=== PATIENT | male | born 1970 | race Caucasian/White ===

== ENCOUNTER 2017-04-06 08:49 | Inpatient (IN) | payer OTHER ==
[2017-04-06 09:34] VITALS: BMI 34.2
[2017-04-06] MEDS ORDERED: MAGNESIUM CITRATE 300 ML BOTTLE PO PRN (10:37)
[2017-04-06] MEDS ORDERED: MAG HYDROX/AL HYDROX/SIMETH 30 ML UNIT-DOSE CUP PO PRN (10:37)
[2017-04-06] MEDS ORDERED: ACETAMINOPHEN 325 MG TABLET (FP) PO PRN (10:37)
[2017-04-06] MEDS ORDERED: IBUPROFEN 400 MG TABLET (FP) PO PRN (10:37)
[2017-04-06] MEDS ORDERED: guaiFENesin/D-METHORPHAN HB 10 ML UNIT-DOSE CUPS PO PRN (10:37)
[2017-04-06] MEDS ORDERED: P-EPHED 60MG/TRIPROLIDI 2.5MG TABLET PO PRN (10:37)
[2017-04-06] MEDS ORDERED: chlordiazePOXIDE HCL 25 MG CAPSULE PO PRN (10:37)
[2017-04-06] MEDS ORDERED: NICOTINE POLACRILEX 2 MG GUM BUC PRN (10:37)
[2017-04-06] MEDS ORDERED: MENTHOL/PHENOL 1 EACH UD MM PRN (10:37)
[2017-04-06] MEDS ORDERED: MAGNESIUM HYDROX 2400MG/30ML ORAL SUSPENSION 30 ML CUP PO PRN (10:37)
[2017-04-06] MEDS ORDERED: LOPERAMIDE HCL 2 MG CAPSULE PO PRN (10:37)
--- NOTE | 2017-04-06 10:37 | HP ---
COWS - Scale Resting Pulse: 0= [place] 80 or Below Sweatin= Chills/Flushing Restless Observation: 1= Difficult to Sit Still Pupil Size: 1= Pupils >than Normal Bone or Joint Aches: 1= Mild Discomfort Runny Nose/ Eye Tearin= Nasal Congestion GI Upset > 30mins: 2= Nausea/Diarrhea Tremor Observation: 1= Tremor [place], Not Seen Yawning Observation: 1= 1-2x During Session Anxiety or Irritability: 2=Irritable/Anxious Goose Flesh Skin: 3=Piloe[place] COWS Score: 14 CIWA Score - CIWA Score Nausea/Vomitin Muscle Tremors: 3 Anxiety: 3 Agitation: 3 Paroxysmal Sweats: 3 Orientation: 0-Oriented Tacttile Disturbances: 0-None Auditory Disturbances: 0-None Visual Disturbances: 0-None Headache: 3-Moderate CIWA-Ar Total Score: 18 Admission ROS BHS - HPI Chief Complaint: alcohol and heroin withdrawal sx Allergies/Adverse Reactions: Allergies Allergy/AdvReac Type Severity Reaction Status Date / Time No Known Allergies Allergy Verified 04/06/17 10:02 History of Present Illness: 47 yo m with h/o oud and chronic alcoholism, multiple admissions to [facility] for detox, requesting inpatient detoxification from alcohol and heorin because of withdrawal sx. no h/o withdrawal seizurs, h/o blackouts, no OD no DTs. no SI at this time pmhx dm, sleep apnoea,glaucoma r, copd, nicotien dependen, cocaine dependence 1/2 PPD Exam Limitations: No Limitations - Ebola screening Have you traveled outside of the country in the last 21 days: No (N) Have you had contact with anyone from an Ebola affected area: No Have you been sick,other than usual withdrawal symptoms: No Do you have a fever: No - Review of Systems Constitutional: Chills, Diaphoresis, Night Sweats, Changes in sleep, Unintentional Wgt. Loss EENT: reports: Tearing, Nose Congestion Respiratory: reports: Cough (smokers worse at night), SOB with Exertion (copd symptoms), Wheezing Cardiac: reports: No Symptoms Reported GI: reports: Nausea, Poor Appetite, Poor Fluid Intake, Abdominal cramping : reports: No Symptoms Reported Musculoskeletal: reports: Back Pain (withdrawal sx), Muscle Pain Integumentary: reports: Flushing, Sweating Neuro: reports: Headache, Tremors Endocrine: reports: Increased Thirst Hematology: reports: No Symptoms Reported Psychiatric: reports: Judgement Intact, Mood/Affect Appropiate, Orientated x3, Anxious, Depressed Other Systems: Reviewed and Negative Patient History - Patient Medical History Hx Anemia: No Hx Asthma: No Hx Chronic Obstructive Pulmonary Disease (COPD): Yes Hx Cancer: No Hx Cardiac Disorders: No Hx Congestive Heart Failure: No Hx Hypertension: No Hx Hypercholesterolemia: No Hx Pacemaker: No HX Cerebrovascular Accident: No Hx Seizures: No Hx Dementia: No Hx Diabetes: Yes Hx Gastrointestinal Disorders: No Hx Liver Disease: No Hx Genitourinary Disorders: No Hx Sexually Transmitted Disorders: No Hx Renal Disease (ESRD): No Hx Thyroid Disease: No Hx Human Immunodeficiency Virus (HIV): No Hx Hepatitis C: No Hx Depression: Yes Hx Suicide Attempt: Yes (Tried to jump in front of a train.) Hx Bipolar Disorder: Yes Hx Schizophrenia: No - Patient Surgical History Past Surgical History: Yes Hx Neurologic Surgery: No Hx Cataract Extraction: No Hx Cardiac Surgery: No Hx Lung Surgery: No Hx Breast Surgery: No Hx Breast Biopsy: No Hx Abdominal Surgery: No Hx Appendectomy: No Hx Cholecystectomy: No Hx Genitourinary Surgery: No Hx Orthopedic Surgery: Yes (R hand sx 2007) Anesthesia Reaction: No - PPD History Previous Implant?: Yes Documented Results: Negative w/o proof Implanted On Prior R Admission?: No Date: 08/07/15 PPD to be Administered?: Yes - Reproductive History Patient is a Female of Child Bearing Age (11 -55 yrs old): No Patient : No - Smoking Cessation Smoking history: Current every day smoker Have you smoked in the past 12 months: Yes Aproximately how many cigarettes per day: 10 Hx Chewing Tobacco Use: No Initiated information on smoking cessation: Yes 'Breaking Loose' booklet given: 04/06/17 - Substance & Tx. History Hx Alcohol Use: Yes Hx Substance Use: Yes Substance Use Type: Alcohol, Cocaine, Heroin, Opiates Hx Substance Use Treatment: Yes ([facility] detox in past) - Substances Abused Heroin Route: Inhalation Frequency: Daily Amount used: 6-7 bags Age of first use: 41 Date of Last Use: 04/05/17 Alcohol Route: Oral Frequency: Daily Amount used: 5 12 oz cans beer Age of first use: 11 Date of Last Use: 04/06/17 Crack Route: Smoking Frequency: Daily Amount used: $30 and up Age of first use: 11 Date of Last Use: 04/05/17 Family Disease History - Family Disease History Family Disease History: Diabetes: Father (ON HD FOR CKD), Mother, Other: Brother (ADDICTED TO DRUGS AND ETOH) Admission Physical Exam BHS - Vital Signs Vital Signs: Vital Signs - 24 hr 04/06/17 09:28 Temperature 96.6 F L Pulse Rate 68 Respiratory 20 Rate Blood Pressure 147/88 - Physical General Appearance: Yes: Nourished, Appropriately Dressed, Disheveled, Mild Distress, Tremorous, Irritable, Sweating, Anxious HEENTM: Yes: EOMI, Hearing grossly Normal, Normocephalic, Normal Voice, YANG, Pharynx Normal, Nasal Congestion, Rhinorrhea Respiratory: Yes: Within Normal Limits, Chest Non-Tender, Lungs Clear, Normal Breath Sounds, No Respiratory Distress, No Accessory Muscle Use Neck: Yes: Within Normal Limits, No masses,lesions,Nodules, Supple, Trachea in good position Breast: Yes: Breast Exam Deferred Cardiology: Yes: Within Normal Limits, Regular Rhythm, Regular Rate, S1, S2 Abdominal: Yes: Within Normal Limits, Normal Bowel Sounds, Non Tender, Increased Bowel Sounds, Protuberent Genitourinary: Yes: Within Normal Limits Back: Yes: Within Normal Limits, Normal Inspection Musculoskeletal: Yes: full range of Motion, Gait Steady, Pelvis Stable, Back pain, Muscle Pain Extremities: Yes: Normal Capillary Refill, Normal Inspection, Normal Range of Motion, Tremors 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 NML intact, Fully Oriented, Alert, Motor Strength 5/5, Normal Response, Depressed Affect Integumentary: Yes: Normal Color, Warm, Diaphoresis, Moist Lymphatic: Yes: Within Normal Limits - Addiitonal Findings: withdrawal sx - Diagnostic (1) Alcohol dependence with uncomplicated withdrawal Current Visit: No Status: Acute (2) Bipolar disorder Current Visit: No Status: Acute (3) Opioid dependence with withdrawal Current Visit: No Status: Acute (4) PTSD (post-traumatic stress disorder) Current Visit: No Status: Acute (5) Cocaine dependence Current Visit: No Status: Chronic Qualifiers: (6) Glaucoma associated with ocular disorder, indeterminate stage Current Visit: No Status: Chronic (7) Obesity Current Visit: No Status: Chronic (8) Type II diabetes mellitus Current Visit: No Status: Chronic Cleared for Admission BHS - Detox or Rehab Detox Regimen/Protocol: Methadone/Librium BHS Breath Alcohol Content Breath Alcohol Content: 0 Urine Drug Screen - Results Drug Screen Negative: No Urine Drug Screen Results: ABRAHAN-Cocaine, OPI-Opiates
[2017-04-06] MEDS ORDERED: chlordiazePOXIDE HCL 25 MG CAPSULE PO ONE (11:11)
[2017-04-06] MEDS ORDERED: METHADONE HCL 10 MG TABLET (FOR DETOX USE ONLY) PO ONE ×2 (11:12→23:00)
[2017-04-06] MEDS: PANTOPRAZOLE 40 MG TABLET (FP) PO SCH (12:59)
[2017-04-06] MEDS: CYCLOBENZAPRINE HCL 5 MG TABLET PO SCH ×2 (12:59→22:22)
[2017-04-06] MEDS: glipiZIDE 5 MG TABLET (FP) PO SCH ×2 (12:59→17:10)
[2017-04-06] MEDS: NICOTINE 14 MG/24 HOURS TOPICAL PATCH TD SCH (13:00)
--- NOTE | 2017-04-06 16:56 | CONSULT ---
[facility] Psychiatric Consult - Data Date of interview: 04/06/17 Admission source: [facility] Identifying data: Pt. is a 47 year old single male, without kids, unemployed, and homeless. This is one of multiple admissions to [facility]. Pt. admitted to for cocaine, heroin, and alcohol dependence. Substance Abuse History: Following information confirmed with Mr. Hutchison: - Smoking Cessation. Smoking history: Current every day smoker. Have you smoked in the past 12 months: Yes. Aproximately how many cigarettes per day: 10. Hx Chewing Tobacco Use: No. Initiated information on smoking cessation: Yes. ' Breaking Loose' booklet given: 04/06/17. - Substance & Tx. History. Hx Alcohol Use: Yes. Hx Substance Use: Yes. Substance Use Type: Alcohol, Cocaine , Heroin, Opiates. Hx Substance Use Treatment: Yes ([facility] detox in past). - Substances Abused. Heroin. Route: Inhalation. Frequency: Daily. Amount used: 6-7 bags. Age of first use: 41. Date of Last Use: 04/05/17. Alcohol. Route: Oral. Frequency: Daily. Amount used: 5 12 oz cans beer. Age of first use: 11. Date of Last Use: 04/06/17. Crack. Route: Smoking. Frequency: Daily. Amount used: $30 and up. Age of first use: 11. Date of Last Use: 04/05/17 Medical History: COPD, diabetes. Psychiatric History: Pt. reports several psychiatric hospitalizations with the most recent hospitalization occuring at [facility] in 2015 for suicidal ideation. Pt. reports a history of outpatient care at [facility] but none in the last 6 months. Pt. states he was prescribed celexa 40mg but has not taken the medications in approximately 4-6 months. Pt. requesting to restart celexa at [facility]. Pt. reports one suicide attempt three years ago by jumping in a front of a train and another suicide attempt at 20 by attempting to jump off the roof. Pt. currently denies suicidal and homicidal ideation. Physical/Sexual Abuse/Trauma History: Denies. Mental Status Exam - Mental Status Exam Alert and Oriented to: Time, Place, Person Cognitive Function: Good Patient Appearance: Well Groomed Mood: Hopeful Affect: Mood Congruent Patient Behavior: Cooperative Speech Pattern: Appropriate Voice Loudness: Normal Thought Process: Goal Oriented Thought Disorder: Not Present Hallucinations: Denies Suicidal Ideation: Denies Homicidal Ideation: Denies Insight/Judgement: Poor Sleep: Fair Appetite: Good Muscle strength/Tone: Normal Gait/Station: Other (Did not observe patient's gait.) Psychiatric Findings - Problem List ([place] 1, 2,3) (1) Alcohol dependence with uncomplicated withdrawal Current Visit: Yes Status: Acute (2) Opioid dependence with withdrawal Current Visit: Yes Status: Acute (3) Alcohol dependence Current Visit: Yes Status: Acute (4) Opioid dependence Current Visit: No Status: Acute (5) Bipolar disorder Current Visit: Yes Status: Chronic Comment: Self reports. - Initial Treatment Plan Initial Treatment Plan: Psychoeducation provided. Detoxification in progress. Celexa 10mg PO daily. Benefits and side effects discussed. Verbal consent given. Will continue to monitor.
[2017-04-06] MEDS: chlordiazePOXIDE HCL 25 MG CAPSULE PO SCH ×2 (17:10→22:22)
[2017-04-06 18:16] LABS: URINE APPEARANCE TURBID; URINE BILIRUBIN NEGATIVE (NEGATIVE); URINE BLOOD NEGATIVE (NEGATIVE); URINE COLOR AMBER; URINE GLUCOSE (UA) NEGATIVE (NEGATIVE); URINE KETONE TRACE (NEGATIVE); URINE LEUK ESTERASE NEGATIVE (NEGATIVE); URINE NITRITE NEGATIVE (NEGATIVE); URINE PROTEIN NEGATIVE (NEGATIVE)
[2017-04-06] MEDS: THIAMINE HCL 100 MG TABLET (FP) PO SCH (22:22)
[2017-04-06] MEDS: LATANOPROST 0.005% OPHTH SOLN 2.5ML BOTTLE OU SCH (22:42)
[2017-04-07] MEDS: CYCLOBENZAPRINE HCL 5 MG TABLET PO SCH ×3 (05:20→22:30)
[2017-04-07] MEDS: chlordiazePOXIDE HCL 25 MG CAPSULE PO SCH ×4 (05:21→22:30)
[2017-04-07] MEDS: glipiZIDE 5 MG TABLET (FP) PO SCH ×2 (07:54→17:28)
[2017-04-07] MEDS ORDERED: METHADONE HCL 10 MG TABLET (FOR DETOX USE ONLY) PO SCH (10:00)
[2017-04-07 10:01] LABS: HEMATOCRIT 40.6 % (35.4-49); HEMOGLOBIN 13.8 GM/dL (11.7-16.9); MCH 31.2 pg (25.7-33.7); MCHC 33.9 g/dl (32.0-35.9); MEAN CELL VOLUME 91.9 fl (80-96); MEAN PLT VOLUME 9.5 fl (7.5-11.1); PLATELET COUNT 303 K/MM3 (134-434); RBC 4.42 M/mm3 (4.00-5.60); RDW 13.6 % (11.9-15.9); WHITE BLOOD COUNT 5.8 K/mm3 (4.0-10.0)
[2017-04-07] MEDS: PANTOPRAZOLE 40 MG TABLET (FP) PO SCH (10:10)
[2017-04-07] MEDS: CITALOPRAM HYDROBROMIDE 20 MG TABLET (FP) PO SCH (10:10)
[2017-04-07] MEDS: PRENATAL VITAMINS W/ FOLIC ACID TABLET (FP) PO SCH (10:10)
[2017-04-07] MEDS: NICOTINE 14 MG/24 HOURS TOPICAL PATCH TD SCH (10:11)
[2017-04-07 10:12] LABS: ALBUMIN 3.6 g/dl (3.4-5.0); ANION GAP 9 (8-16); BLOOD UREA NITROGEN 11 mg/dL (7-18); CALCIUM 8.5 mg/dL (8.5-10.1); CHLORIDE 107 mmol/L (98-107); CO2 25 mmol/L (21-32); GLUCOSE,RANDOM 186 mg/dL (74-106); POTASSIUM 4.6 mmol/L (3.5-5.1); SODIUM 141 mmol/L (136-145)
[2017-04-07 10:17] LABS: ALK PHOS 69 U/L (45-117); BILIRUBIN,TOTAL 0.4 mg/dL (0.2-1.0); CREATININE 0.9 mg/dL (0.7-1.3); SGOT/AST 15 U/L (15-37); SGPT/ALT 26 U/L (12-78); TOT PROT 6.5 g/dl (6.4-8.2)
--- NOTE | 2017-04-07 10:18 | EKG ---
Test Reason : Blood Pressure : / mmHG Vent. Rate : 067 BPM Atrial Rate : 067 BPM P-R Int : 142 ms QRS Dur : 098 ms QT Int : 400 ms P-R-T Axes : 031 048 026 degrees QTc Int : 422 ms NORMAL SINUS RHYTHM NON-SPECIFIC INTRA-VENTRICULAR CONDUCTION DELAY NO PREVIOUS ECGS AVAILABLE Confirmed by MCKENZIE QUINONES MD ([id number]) on 04/07/2017 10:18:05 AM Referred By: Confirmed By:MCKENZIE QUINONES MD
[2017-04-07] MEDS ORDERED: FLU VACCINE QUAD 60 MCG/0.5 ML (MDV 17-18) IM ONE (12:00)
--- NOTE | 2017-04-07 12:47 | PN ---
S CIWA - CIWA Score Nausea/Vomitin Muscle Tremors: 3 Anxiety: 3 Agitation: 3 Paroxysmal Sweats: 1-Minimal Palms Moist Orientation: 0-Oriented Tacttile Disturbances: 1-Very Mild Itch/Numbness Auditory Disturbances: 1-Very Mild Visual Disturbances: 0-None Headache: 2-Mild CIWA-Ar Total Score: 17 BHS COWS - Scale Resting Pulse: 0= [place] 80 or Below Sweatin= Chills/Flushing Restless Observation: 3= Extraneous Movement Pupil Size: 1= Pupils >than Normal Bone or Joint Aches: 2= Severe Diffuse Aches Runny Nose/ Eye Tearin= Runny Nose/Eyes GI Upset > 30mins: 2= Nausea/Diarrhea Tremor Observation of Outstretched Hands: 2= Slight Tremor Visible Yawning Observation: 1= 1-2x During Session Anxiety or Irritability: 2=Irritable/Anxious Goose Flesh Skin: 0=Smooth Skin COWS Score: 16 S Progress Note (SOAP) Subjective: ALERT,IRRITABLE,ANXIOUS,TREMOR,PAIN IN THE BODY,JOINT,BACK, Objective: 04/07/17 12:45 Vital Signs Temperature 98.1 F 04/07/17 10:08 Pulse Rate 70 04/07/17 10:08 Respiratory Rate 18 04/07/17 10:08 Blood Pressure 123/70 04/07/17 10:08 O2 Sat by Pulse Oximetry (%) 04/07/17 12:46 EKG NSR,NORMAL ECG Laboratory Last Values WBC 5.8 K/mm3 (4.0-10.0) 04/07/17 06:00 RBC 4.42 M/mm3 (4.00-5.60) 04/07/17 06:00 Hgb 13.8 GM/dL (11.7-16.9) 04/07/17 06:00 Hct 40.6 % (35.4-49) 04/07/17 06:00 MCV 91.9 fl (80-96) 04/07/17 06:00 MCH 31.2 pg (25.7-33.7) 04/07/17 06:00 MCHC 33.9 g/dl (32.0-35.9) 04/07/17 06:00 RDW 13.6 % (11.9-15.9) 04/07/17 06:00 Plt Count 303 K/MM3 (134-434) 04/07/17 06:00 MPV 9.5 fl (7.5-11.1) 04/07/17 06:00 Sodium 141 mmol/L (136-145) 04/07/17 06:00 Potassium 4.6 mmol/L (3.5-5.1) 04/07/17 06:00 Chloride 107 mmol/L (98-107) 04/07/17 06:00 Carbon Dioxide 25 mmol/L (21-32) 04/07/17 06:00 Anion Gap 9 (8-16) 04/07/17 06:00 BUN 11 mg/dL (7-18) 04/07/17 06:00 Creatinine 0.9 mg/dL (0.7-1.3) 04/07/17 06:00 Creat Clearance w eGFR > 60 (>60) 04/07/17 06:00 POC Glucometer 202 UNITS (80-120) 04/07/17 05:23 Random Glucose 186 mg/dL (74-106) H D 04/07/17 06:00 Calcium 8.5 mg/dL (8.5-10.1) 04/07/17 06:00 Total Bilirubin 0.4 mg/dL (0.2-1.0) 04/07/17 06:00 AST 15 U/L (15-37) 04/07/17 06:00 ALT 26 U/L (12-78) 04/07/17 06:00 Alkaline Phosphatase 69 U/L (45-117) 04/07/17 06:00 Total Protein 6.5 g/dl (6.4-8.2) 04/07/17 06:00 Albumin 3.6 g/dl (3.4-5.0) 04/07/17 06:00 Urine Color [place] 04/06/17 17:00 Urine Appearance Turbid 04/06/17 17:00 Urine pH 5.0 (5.0-8.0) 04/06/17 17:00 Ur Specific [place] 1.030 (1.001-1.035) 04/06/17 17:00 Urine Protein Negative (NEGATIVE) 04/06/17 17:00 Urine Glucose (UA) Negative (NEGATIVE) 04/06/17 17:00 Urine Ketones Trace (NEGATIVE) H 04/06/17 17:00 Urine Blood Negative (NEGATIVE) 04/06/17 17:00 Urine Nitrite Negative (NEGATIVE) 04/06/17 17:00 Urine Bilirubin Negative (NEGATIVE) 04/06/17 17:00 Urine Urobilinogen 2.0 mg/dL (0.2-1.0) 04/06/17 17:00 Ur Leukocyte Esterase Negative (NEGATIVE) 04/06/17 17:00 RPR Titer Nonreactive (NONREACTIVE) 04/07/17 06:00 Assessment: 04/07/17 12:47 WITHDRAWAL SYMPTOM Plan: CONTINUE DETOX
[2017-04-07] MEDS: THIAMINE HCL 100 MG TABLET (FP) PO SCH (22:30)
[2017-04-07] MEDS: LATANOPROST 0.005% OPHTH SOLN 2.5ML BOTTLE OU SCH (22:30)
[2017-04-08] MEDS: chlordiazePOXIDE HCL 25 MG CAPSULE PO SCH ×2 (05:16→10:04)
[2017-04-08] MEDS: CYCLOBENZAPRINE HCL 5 MG TABLET PO SCH ×3 (05:16→22:09)
[2017-04-08] MEDS: glipiZIDE 5 MG TABLET (FP) PO SCH ×2 (06:20→17:20)
[2017-04-08] MEDS: METHADONE HCL 5 MG TABLET (FOR DETOX USE ONLY) PO SCH (10:04)
[2017-04-08] MEDS: NICOTINE 14 MG/24 HOURS TOPICAL PATCH TD SCH (10:05)
[2017-04-08] MEDS: PRENATAL VITAMINS W/ FOLIC ACID TABLET (FP) PO SCH (10:05)
[2017-04-08] MEDS: CITALOPRAM HYDROBROMIDE 20 MG TABLET (FP) PO SCH (10:05)
[2017-04-08] MEDS: PANTOPRAZOLE 40 MG TABLET (FP) PO SCH (10:05)
--- NOTE | 2017-04-08 11:03 | PN ---
[facility] CIWA - CIWA Score Nausea/Vomitin Muscle Tremors: 3 Anxiety: 3 Agitation: 3 Paroxysmal Sweats: 1-Minimal Palms Moist Orientation: 0-Oriented Tacttile Disturbances: 1-Very Mild Itch/Numbness Auditory Disturbances: 1-Very Mild Visual Disturbances: 0-None Headache: 2-Mild CIWA-Ar Total Score: 17 BHS COWS - Scale Resting Pulse: 0= [place] 80 or Below Sweatin= Chills/Flushing Restless Observation: 3= Extraneous Movement Pupil Size: 1= Pupils >than Normal Bone or Joint Aches: 2= Severe Diffuse Aches Runny Nose/ Eye Tearin= Runny Nose/Eyes GI Upset > 30mins: 2= Nausea/Diarrhea Tremor Observation of Outstretched Hands: 2= Slight Tremor Visible Yawning Observation: 1= 1-2x During Session Anxiety or Irritability: 2=Irritable/Anxious Goose Flesh Skin: 0=Smooth Skin COWS Score: 16 S Progress Note (SOAP) Subjective: ALERT,IRRITABLE,ANXIOUS,INTERRUPTED SLEEP,PAIN IN THE BODY AND BACK,TREMOR Objective: 04/08/17 11:00 Vital Signs Temperature 97.5 F L 04/08/17 10:07 Pulse Rate 77 04/08/17 10:07 Respiratory Rate 20 04/08/17 10:07 Blood Pressure 127/69 04/08/17 10:07 O2 Sat by Pulse Oximetry (%) BGM 140 Assessment: 04/08/17 11:03 WITHDRAWAL SYMPTOM Plan: CONTINUE DETOX,BGM MONITORING
[2017-04-08] MEDS: chlordiazePOXIDE 5 MG CAPSULE PO SCH ×2 (17:20→22:09)
[2017-04-08] MEDS: LATANOPROST 0.005% OPHTH SOLN 2.5ML BOTTLE OU SCH (22:09)
[2017-04-08] MEDS: THIAMINE HCL 100 MG TABLET (FP) PO SCH (22:09)
[2017-04-08] MEDS: hydrOXYzine PAMOATE 50 MG CAPSULE (FP) PO PRN (22:09)
[2017-04-09] MEDS: chlordiazePOXIDE 5 MG CAPSULE PO SCH ×2 (05:23→10:06)
[2017-04-09] MEDS: CYCLOBENZAPRINE HCL 5 MG TABLET PO SCH ×3 (05:24→22:17)
[2017-04-09] MEDS: glipiZIDE 5 MG TABLET (FP) PO SCH ×2 (06:26→17:28)
[2017-04-09] MEDS: PRENATAL VITAMINS W/ FOLIC ACID TABLET (FP) PO SCH (10:06)
[2017-04-09] MEDS: NICOTINE 14 MG/24 HOURS TOPICAL PATCH TD SCH (10:06)
[2017-04-09] MEDS: METHADONE HCL 5 MG TABLET (FOR DETOX USE ONLY) PO SCH (10:06)
[2017-04-09] MEDS: CITALOPRAM HYDROBROMIDE 20 MG TABLET (FP) PO SCH (10:06)
[2017-04-09] MEDS: PANTOPRAZOLE 40 MG TABLET (FP) PO SCH (10:06)
--- NOTE | 2017-04-09 14:33 | PN ---
S Progress Note (SOAP) Subjective: sweat tremor anxiety joint ache GI distress Objective: 04/09/17 14:31 Vital Signs Temperature 97.3 F L 04/09/17 10:10 Pulse Rate 71 04/09/17 10:10 Respiratory Rate 16 04/09/17 10:10 Blood Pressure 114/60 04/09/17 10:10 O2 Sat by Pulse Oximetry (%) Laboratory Last Values WBC 5.8 K/mm3 (4.0-10.0) 04/07/17 06:00 RBC 4.42 M/mm3 (4.00-5.60) 04/07/17 06:00 Hgb 13.8 GM/dL (11.7-16.9) 04/07/17 06:00 Hct 40.6 % (35.4-49) 04/07/17 06:00 MCV 91.9 fl (80-96) 04/07/17 06:00 MCH 31.2 pg (25.7-33.7) 04/07/17 06:00 MCHC 33.9 g/dl (32.0-35.9) 04/07/17 06:00 RDW 13.6 % (11.9-15.9) 04/07/17 06:00 Plt Count 303 K/MM3 (134-434) 04/07/17 06:00 MPV 9.5 fl (7.5-11.1) 04/07/17 06:00 Sodium 141 mmol/L (136-145) 04/07/17 06:00 Potassium 4.6 mmol/L (3.5-5.1) 04/07/17 06:00 Chloride 107 mmol/L (98-107) 04/07/17 06:00 Carbon Dioxide 25 mmol/L (21-32) 04/07/17 06:00 Anion Gap 9 (8-16) 04/07/17 06:00 BUN 11 mg/dL (7-18) 04/07/17 06:00 Creatinine 0.9 mg/dL (0.7-1.3) 04/07/17 06:00 Creat Clearance w eGFR > 60 (>60) 04/07/17 06:00 POC Glucometer 128 UNITS (80-120) 04/09/17 05:23 Random Glucose 186 mg/dL (74-106) H D 04/07/17 06:00 Calcium 8.5 mg/dL (8.5-10.1) 04/07/17 06:00 Total Bilirubin 0.4 mg/dL (0.2-1.0) 04/07/17 06:00 AST 15 U/L (15-37) 04/07/17 06:00 ALT 26 U/L (12-78) 04/07/17 06:00 Alkaline Phosphatase 69 U/L (45-117) 04/07/17 06:00 Total Protein 6.5 g/dl (6.4-8.2) 04/07/17 06:00 Albumin 3.6 g/dl (3.4-5.0) 04/07/17 06:00 Urine Color Emily 04/06/17 17:00 Urine Appearance Turbid 04/06/17 17:00 Urine pH 5.0 (5.0-8.0) 04/06/17 17:00 Ur Specific [place] 1.030 (1.001-1.035) 04/06/17 17:00 Urine Protein Negative (NEGATIVE) 04/06/17 17:00 Urine Glucose (UA) Negative (NEGATIVE) 04/06/17 17:00 Urine Ketones Trace (NEGATIVE) H 04/06/17 17:00 Urine Blood Negative (NEGATIVE) 04/06/17 17:00 Urine Nitrite Negative (NEGATIVE) 04/06/17 17:00 Urine Bilirubin Negative (NEGATIVE) 04/06/17 17:00 Urine Urobilinogen 2.0 mg/dL (0.2-1.0) 04/06/17 17:00 Ur Leukocyte Esterase Negative (NEGATIVE) 04/06/17 17:00 RPR Titer Nonreactive (NONREACTIVE) 04/07/17 06:00 lab noted Assessment: 04/09/17 14:31 withdrawal sx Plan: increase oral fluid continue detox
[2017-04-09] MEDS: chlordiazePOXIDE HCL 10 MG CAPSULE PO SCH ×2 (17:28→22:17)
[2017-04-09] MEDS: LATANOPROST 0.005% OPHTH SOLN 2.5ML BOTTLE OU SCH (22:16)
[2017-04-09] MEDS: THIAMINE HCL 100 MG TABLET (FP) PO SCH (22:17)
[2017-04-10] MEDS: chlordiazePOXIDE HCL 10 MG CAPSULE PO SCH ×2 (05:41→10:14)
[2017-04-10] MEDS: CYCLOBENZAPRINE HCL 5 MG TABLET PO SCH ×3 (05:41→22:18)
[2017-04-10] MEDS: glipiZIDE 5 MG TABLET (FP) PO SCH ×2 (06:28→17:24)
[2017-04-10] MEDS: hydrOXYzine PAMOATE 50 MG CAPSULE (FP) PO PRN ×2 (08:49→14:17)
[2017-04-10] MEDS ORDERED: METHADONE HCL 10 MG TABLET (FOR DETOX USE ONLY) PO SCH (10:00)
[2017-04-10] MEDS: PRENATAL VITAMINS W/ FOLIC ACID TABLET (FP) PO SCH (10:13)
[2017-04-10] MEDS: PANTOPRAZOLE 40 MG TABLET (FP) PO SCH (10:13)
[2017-04-10] MEDS: CITALOPRAM HYDROBROMIDE 20 MG TABLET (FP) PO SCH (10:13)
[2017-04-10] MEDS: NICOTINE 14 MG/24 HOURS TOPICAL PATCH TD SCH (10:14)
--- NOTE | 2017-04-10 10:28 | PN ---
BHS Progress Note (SOAP) Subjective: sweat tremor irritable agitation Objective: 04/10/17 10:26 Vital Signs Temperature 98.1 F 04/10/17 06:16 Pulse Rate 70 04/10/17 06:16 Respiratory Rate 18 04/10/17 06:16 Blood Pressure 133/75 04/10/17 06:16 O2 Sat by Pulse Oximetry (%) Laboratory Last Values WBC 5.8 K/mm3 (4.0-10.0) 04/07/17 06:00 RBC 4.42 M/mm3 (4.00-5.60) 04/07/17 06:00 Hgb 13.8 GM/dL (11.7-16.9) 04/07/17 06:00 Hct 40.6 % (35.4-49) 04/07/17 06:00 MCV 91.9 fl (80-96) 04/07/17 06:00 MCH 31.2 pg (25.7-33.7) 04/07/17 06:00 MCHC 33.9 g/dl (32.0-35.9) 04/07/17 06:00 RDW 13.6 % (11.9-15.9) 04/07/17 06:00 Plt Count 303 K/MM3 (134-434) 04/07/17 06:00 MPV 9.5 fl (7.5-11.1) 04/07/17 06:00 Sodium 141 mmol/L (136-145) 04/07/17 06:00 Potassium 4.6 mmol/L (3.5-5.1) 04/07/17 06:00 Chloride 107 mmol/L (98-107) 04/07/17 06:00 Carbon Dioxide 25 mmol/L (21-32) 04/07/17 06:00 Anion Gap 9 (8-16) 04/07/17 06:00 BUN 11 mg/dL (7-18) 04/07/17 06:00 Creatinine 0.9 mg/dL (0.7-1.3) 04/07/17 06:00 Creat Clearance w eGFR > 60 (>60) 04/07/17 06:00 POC Glucometer 308 UNITS (80-120) 04/10/17 05:40 Random Glucose 186 mg/dL (74-106) H D 04/07/17 06:00 Calcium 8.5 mg/dL (8.5-10.1) 04/07/17 06:00 Total Bilirubin 0.4 mg/dL (0.2-1.0) 04/07/17 06:00 AST 15 U/L (15-37) 04/07/17 06:00 ALT 26 U/L (12-78) 04/07/17 06:00 Alkaline Phosphatase 69 U/L (45-117) 04/07/17 06:00 Total Protein 6.5 g/dl (6.4-8.2) 04/07/17 06:00 Albumin 3.6 g/dl (3.4-5.0) 04/07/17 06:00 Urine Color Emily 04/06/17 17:00 Urine Appearance Turbid 04/06/17 17:00 Urine pH 5.0 (5.0-8.0) 04/06/17 17:00 Ur Specific [place] 1.030 (1.001-1.035) 04/06/17 17:00 Urine Protein Negative (NEGATIVE) 04/06/17 17:00 Urine Glucose (UA) Negative (NEGATIVE) 04/06/17 17:00 Urine Ketones Trace (NEGATIVE) H 04/06/17 17:00 Urine Blood Negative (NEGATIVE) 04/06/17 17:00 Urine Nitrite Negative (NEGATIVE) 04/06/17 17:00 Urine Bilirubin Negative (NEGATIVE) 04/06/17 17:00 Urine Urobilinogen 2.0 mg/dL (0.2-1.0) 04/06/17 17:00 Ur Leukocyte Esterase Negative (NEGATIVE) 04/06/17 17:00 RPR Titer Nonreactive (NONREACTIVE) 04/07/17 06:00 lab noted Assessment: 04/10/17 10:27 withdrawal sx 04/10/17 10:27 uncontrolled diabetes Plan: continue detox begin metformin 500 mg before breakfast health teaching on dietary and exercise also medication compliance strong recommend follow up with endocrainologist or primary care physician for diabetes
[2017-04-10] MEDS: THIAMINE HCL 100 MG TABLET (FP) PO SCH (22:18)
[2017-04-10] MEDS: LATANOPROST 0.005% OPHTH SOLN 2.5ML BOTTLE OU SCH (22:18)
[2017-04-11] MEDS: CYCLOBENZAPRINE HCL 5 MG TABLET PO SCH ×2 (05:23→14:27)
[2017-04-11] MEDS ORDERED: METHADONE HCL 5 MG TABLET (FOR DETOX USE ONLY) PO SCH (06:00)
[2017-04-11] MEDS ORDERED: metFORMIN HCL 500 MG TABLET (FP) PO SCH (07:00)
[2017-04-11] MEDS: glipiZIDE 5 MG TABLET (FP) PO SCH ×2 (07:19→16:42)
--- NOTE | 2017-04-11 08:49 | DS ---
[facility] Detox Discharge Summary Admission Date: 04/06/17 Discharge Date: 04/11/17 - History Present History: Alcohol Dependence, Opioid Dependence - Physical Exam Results Vital Signs: Vital Signs Temperature 97.7 F 04/11/17 06:00 Pulse Rate 67 04/11/17 06:00 Respiratory Rate 18 04/11/17 06:00 Blood Pressure 125/96 04/11/17 06:00 O2 Sat by Pulse Oximetry (%) Pertinent Admission Physical Exam Findings: withdrawal sx Laboratory Last Values WBC 5.8 K/mm3 (4.0-10.0) 04/07/17 06:00 RBC 4.42 M/mm3 (4.00-5.60) 04/07/17 06:00 Hgb 13.8 GM/dL (11.7-16.9) 04/07/17 06:00 Hct 40.6 % (35.4-49) 04/07/17 06:00 MCV 91.9 fl (80-96) 04/07/17 06:00 MCH 31.2 pg (25.7-33.7) 04/07/17 06:00 MCHC 33.9 g/dl (32.0-35.9) 04/07/17 06:00 RDW 13.6 % (11.9-15.9) 04/07/17 06:00 Plt Count 303 K/MM3 (134-434) 04/07/17 06:00 MPV 9.5 fl (7.5-11.1) 04/07/17 06:00 Sodium 141 mmol/L (136-145) 04/07/17 06:00 Potassium 4.6 mmol/L (3.5-5.1) 04/07/17 06:00 Chloride 107 mmol/L (98-107) 04/07/17 06:00 Carbon Dioxide 25 mmol/L (21-32) 04/07/17 06:00 Anion Gap 9 (8-16) 04/07/17 06:00 BUN 11 mg/dL (7-18) 04/07/17 06:00 Creatinine 0.9 mg/dL (0.7-1.3) 04/07/17 06:00 Creat Clearance w eGFR > 60 (>60) 04/07/17 06:00 POC Glucometer 161 UNITS (80-120) 04/11/17 05:22 Random Glucose 186 mg/dL (74-106) H D 04/07/17 06:00 Calcium 8.5 mg/dL (8.5-10.1) 04/07/17 06:00 Total Bilirubin 0.4 mg/dL (0.2-1.0) 04/07/17 06:00 AST 15 U/L (15-37) 04/07/17 06:00 ALT 26 U/L (12-78) 04/07/17 06:00 Alkaline Phosphatase 69 U/L (45-117) 04/07/17 06:00 Total Protein 6.5 g/dl (6.4-8.2) 04/07/17 06:00 Albumin 3.6 g/dl (3.4-5.0) 04/07/17 06:00 Urine Color Emily 04/06/17 17:00 Urine Appearance Turbid 04/06/17 17:00 Urine pH 5.0 (5.0-8.0) 04/06/17 17:00 Ur Specific [place] 1.030 (1.001-1.035) 04/06/17 17:00 Urine Protein Negative (NEGATIVE) 04/06/17 17:00 Urine Glucose (UA) Negative (NEGATIVE) 04/06/17 17:00 Urine Ketones Trace (NEGATIVE) H 04/06/17 17:00 Urine Blood Negative (NEGATIVE) 04/06/17 17:00 Urine Nitrite Negative (NEGATIVE) 04/06/17 17:00 Urine Bilirubin Negative (NEGATIVE) 04/06/17 17:00 Urine Urobilinogen 2.0 mg/dL (0.2-1.0) 04/06/17 17:00 Ur Leukocyte Esterase Negative (NEGATIVE) 04/06/17 17:00 RPR Titer Nonreactive (NONREACTIVE) 04/07/17 06:00 lab noted - Treatment Hospital Course: Detox Protocol Followed, Detoxed Safely, Responded well, Discharged Condition Good, Rehab Referral Accepted Patient has Accepted a Rehab Referral to: as per counselor arranged - Medication Discharge Medications: Ambulatory Orders Latanoprost 0.005% Eye Drops [Xalatan 0.005% Eye Drops -] 1 drop OU HS #1 drops 08/06/15 Glipizide 5 mg PO BID 04/06/17 - Diagnosis (1) Alcohol dependence with uncomplicated withdrawal Current Visit: Yes Status: Acute (2) Opioid dependence with withdrawal Current Visit: Yes Status: Acute (3) Diabetes 1.5, 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
[2017-04-11] MEDS: PANTOPRAZOLE 40 MG TABLET (FP) PO SCH (10:19)
[2017-04-11] MEDS: PRENATAL VITAMINS W/ FOLIC ACID TABLET (FP) PO SCH (10:19)
[2017-04-11] MEDS: CITALOPRAM HYDROBROMIDE 20 MG TABLET (FP) PO SCH (10:19)
[2017-04-11] MEDS: NICOTINE 14 MG/24 HOURS TOPICAL PATCH TD SCH (10:19)
[2017-04-11 15:02] VITALS: BP 128/67; PULSE 76; TEMP 97
== END 2017-04-11 16:54 | disposition other institution (70) | DRG 773 ==
LOC: YASAS 08:49 → Y6N 11:10
PROVIDERS: ADMIT Internal Medicine; ATTEND Internal Medicine
PROC: HZ2ZZZZ Detoxification Services for Substance Abuse Treatment (ICD-10-PCS; principal; 2017-04-06)
DX: F11.23 Opioid dependence with withdrawal (principal); F10.230 Alcohol dependence with withdrawal, uncomplicated; F14.20 Cocaine dependence, uncomplicated; F17.210 Nicotine dependence, cigarettes, uncomplicated; F43.10 Post-traumatic stress disorder, unspecified; E11.65 Type 2 diabetes mellitus with hyperglycemia; H40.53 Glaucoma secondary to other eye disorders, bilateral; J44.9 Chronic obstructive pulmonary disease, unspecified; E66.9 Obesity, unspecified; Z68.34 Body mass index [BMI] 34.0-34.9, adult; Z79.84 Long term (current) use of oral hypoglycemic drugs; Z91.5 Personal history of self-harm
CPT/HCPCS: 36415; 80053; 81003; 82962; 85027; 86593; 90688; 93005; 93010

== ENCOUNTER 2017-04-11 17:00 | Inpatient (IN) | payer OTHER ==
[2017-04-11] MEDS ORDERED: MAGNESIUM CITRATE 300 ML BOTTLE PO PRN (17:17)
[2017-04-11] MEDS ORDERED: MAG HYDROX/AL HYDROX/SIMETH 30 ML UNIT-DOSE CUP PO PRN (17:17)
[2017-04-11] MEDS ORDERED: MAGNESIUM HYDROX 2400MG/30ML ORAL SUSPENSION 30 ML CUP PO PRN (17:17)
[2017-04-11] MEDS ORDERED: MENTHOL/PHENOL 1 EACH UD MM PRN (17:17)
[2017-04-11] MEDS ORDERED: LOPERAMIDE HCL 2 MG CAPSULE PO PRN (17:17)
[2017-04-11] MEDS ORDERED: P-EPHED 60MG/TRIPROLIDI 2.5MG TABLET PO PRN (17:17)
[2017-04-11] MEDS ORDERED: guaiFENesin/D-METHORPHAN HB 10 ML UNIT-DOSE CUPS PO PRN (17:17)
[2017-04-11] MEDS ORDERED: ACETAMINOPHEN 325 MG TABLET (FP) PO PRN (17:17)
--- NOTE | 2017-04-11 17:18 | HP ---
[facility] Rehab Assess/Revision - Admission History Admitted to Rehab from: [facility] Date of Admission to Rehab: 04/11/17
[2017-04-11] MEDS: THIAMINE HCL 100 MG TABLET (FP) PO SCH (21:29)
[2017-04-11] MEDS: LATANOPROST 0.005% OPHTH SOLN 2.5ML BOTTLE OU SCH (21:29)
[2017-04-12] MEDS: glipiZIDE 5 MG TABLET (FP) PO SCH ×2 (06:36→16:47)
[2017-04-12] MEDS: PRENATAL VITAMINS W/ FOLIC ACID TABLET (FP) PO SCH (10:30)
[2017-04-12] MEDS: hydrOXYzine PAMOATE 50 MG CAPSULE (FP) PO PRN ×2 (10:31→21:03)
[2017-04-12] MEDS ORDERED: NICOTINE POLACRILEX 2 MG GUM BUC PRN (11:23)
[2017-04-12] MEDS: NICOTINE 14 MG/24 HOURS TOPICAL PATCH TD SCH (12:03)
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
[2017-04-12] MEDS: THIAMINE HCL 100 MG TABLET (FP) PO SCH (21:03)
[2017-04-12] MEDS: LATANOPROST 0.005% OPHTH SOLN 2.5ML BOTTLE OU SCH (21:04)
[2017-04-13] MEDS: glipiZIDE 5 MG TABLET (FP) PO SCH ×2 (06:25→16:53)
[2017-04-13] MEDS: hydrOXYzine PAMOATE 50 MG CAPSULE (FP) PO PRN ×2 (06:27→22:02)
[2017-04-13] MEDS: NICOTINE 14 MG/24 HOURS TOPICAL PATCH TD SCH (10:00)
[2017-04-13] MEDS: PRENATAL VITAMINS W/ FOLIC ACID TABLET (FP) PO SCH (10:00)
[2017-04-13] MEDS: CITALOPRAM HYDROBROMIDE 10 MG TABLET (FP) PO SCH (10:00)
[2017-04-13] MEDS: LATANOPROST 0.005% OPHTH SOLN 2.5ML BOTTLE OU SCH (22:00)
[2017-04-13] MEDS: THIAMINE HCL 100 MG TABLET (FP) PO SCH (22:00)
[2017-04-14] MEDS: glipiZIDE 5 MG TABLET (FP) PO SCH ×2 (06:28→16:42)
[2017-04-14] MEDS: hydrOXYzine PAMOATE 50 MG CAPSULE (FP) PO PRN ×3 (06:29→21:33)
[2017-04-14] MEDS: CITALOPRAM HYDROBROMIDE 10 MG TABLET (FP) PO SCH (09:52)
[2017-04-14] MEDS: NICOTINE 14 MG/24 HOURS TOPICAL PATCH TD SCH (09:52)
[2017-04-14] MEDS: PRENATAL VITAMINS W/ FOLIC ACID TABLET (FP) PO SCH (09:52)
[2017-04-14] MEDS: THIAMINE HCL 100 MG TABLET (FP) PO SCH (21:32)
[2017-04-14] MEDS: LATANOPROST 0.005% OPHTH SOLN 2.5ML BOTTLE OU SCH (21:32)
[2017-04-15] MEDS: glipiZIDE 5 MG TABLET (FP) PO SCH ×2 (06:23→16:39)
[2017-04-15] MEDS: hydrOXYzine PAMOATE 50 MG CAPSULE (FP) PO PRN ×3 (06:24→21:41)
[2017-04-15] MEDS: PRENATAL VITAMINS W/ FOLIC ACID TABLET (FP) PO SCH (10:29)
[2017-04-15] MEDS: CITALOPRAM HYDROBROMIDE 10 MG TABLET (FP) PO SCH (10:29)
[2017-04-15] MEDS: NICOTINE 14 MG/24 HOURS TOPICAL PATCH TD SCH (10:29)
[2017-04-15] MEDS: THIAMINE HCL 100 MG TABLET (FP) PO SCH (21:39)
[2017-04-15] MEDS: LATANOPROST 0.005% OPHTH SOLN 2.5ML BOTTLE OU SCH (21:40)
[2017-04-16] MEDS: glipiZIDE 5 MG TABLET (FP) PO SCH ×2 (05:59→16:59)
[2017-04-16] MEDS: hydrOXYzine PAMOATE 50 MG CAPSULE (FP) PO PRN ×3 (06:00→20:04)
[2017-04-16] MEDS: IBUPROFEN 400 MG TABLET (FP) PO PRN ×2 (08:23→15:38)
[2017-04-16] MEDS: PRENATAL VITAMINS W/ FOLIC ACID TABLET (FP) PO SCH (10:17)
[2017-04-16] MEDS: CITALOPRAM HYDROBROMIDE 10 MG TABLET (FP) PO SCH (10:17)
[2017-04-16] MEDS: NICOTINE 14 MG/24 HOURS TOPICAL PATCH TD SCH (10:17)
[2017-04-16] MEDS: LATANOPROST 0.005% OPHTH SOLN 2.5ML BOTTLE OU SCH (21:43)
[2017-04-16] MEDS: THIAMINE HCL 100 MG TABLET (FP) PO SCH (21:43)
[2017-04-17] MEDS: glipiZIDE 5 MG TABLET (FP) PO SCH ×2 (06:02→16:47)
[2017-04-17] MEDS: hydrOXYzine PAMOATE 50 MG CAPSULE (FP) PO PRN ×3 (06:03→21:34)
[2017-04-17 06:59] VITALS: TEMP 97.9
[2017-04-17] MEDS: IBUPROFEN 400 MG TABLET (FP) PO PRN ×2 (07:59→13:10)
[2017-04-17] MEDS: CITALOPRAM HYDROBROMIDE 10 MG TABLET (FP) PO SCH (10:23)
[2017-04-17] MEDS: PRENATAL VITAMINS W/ FOLIC ACID TABLET (FP) PO SCH (10:23)
[2017-04-17] MEDS: NICOTINE 14 MG/24 HOURS TOPICAL PATCH TD SCH (10:23)
[2017-04-17] MEDS: LATANOPROST 0.005% OPHTH SOLN 2.5ML BOTTLE OU SCH (21:33)
[2017-04-17] MEDS: THIAMINE HCL 100 MG TABLET (FP) PO SCH (21:33)
[2017-04-18] MEDS: glipiZIDE 5 MG TABLET (FP) PO SCH (06:04)
[2017-04-18] MEDS: hydrOXYzine PAMOATE 50 MG CAPSULE (FP) PO PRN (06:04)
[2017-04-18 07:11] VITALS: BP 123/68; PULSE 80
[2017-04-18] MEDS: PRENATAL VITAMINS W/ FOLIC ACID TABLET (FP) PO SCH (10:16)
[2017-04-18] MEDS: CITALOPRAM HYDROBROMIDE 10 MG TABLET (FP) PO SCH (10:16)
[2017-04-18] MEDS: NICOTINE 14 MG/24 HOURS TOPICAL PATCH TD SCH (10:16)
--- NOTE | 2017-04-18 11:22 | PN ---
Psychiatric Progress Note Vital Signs: Vital Signs Period Temp Pulse Resp BP Sys/Dunbar Pulse Ox Last 24 Hr 97.9 F 80 16-18 123/68 Date of Session: 04/18/17 Chief Complaint:: discharge visit HPI: Patient has addressed alcohol, opioid, cocaine dependence comorbid PTSD and Bipolar disorder. ROS: NIDDM, sleep apnea, Glaucoma on right eye medically managed. Current Medications: Active Medications Generic Name Dose Route Start Last Admin Trade Name Freq PRN Reason Stop Dose Admin Acetaminophen 650 mg 04/11/17 17:17 Tylenol - PO Q4H PRN FEVER Al Hydroxide/Mg Hydroxide 30 ml 04/11/17 17:17 Mylanta Oral Suspension - PO Q6H PRN DYSPEPSIA Citalopram Hydrobromide 10 mg 04/13/17 10:00 04/18/17 10:16 Celexa - PO 10 mg DAILY GERARD Administration Eucalyptus/Menthol/Phenol/Sorbitol 1 each 04/11/17 17:17 Cepastat Lozenge - MM Q4H PRN SORE THROAT Glipizide 5 mg 04/12/17 07:00 04/18/17 06:04 Glucotrol - PO 5 mg BIDAC GERARD Administration Guaifenesin 10 ml 04/11/17 17:17 Robitussin Dm - PO Q6H PRN COUGH Hydroxyzine Pamoate 50 mg 04/11/17 17:17 04/18/17 06:04 Vistaril - PO 50 mg Q4H PRN Administration AGITATION Ibuprofen 400 mg 04/11/17 17:17 04/17/17 13:10 Motrin - PO 400 mg Q6H PRN Administration Pain Level 4-6 Latanoprost 1 drop 04/11/17 22:00 04/17/17 21:33 Xalatan 0.005% Eye Drops - OU 1 drop HS GERARD Administration Loperamide HCl 4 mg 04/11/17 17:17 Imodium - PO Q6H PRN DIARRHEA Magnesium Citrate 300 ml 04/11/17 17:17 Citroma - PO Q48H PRN CONSTIPATION Magnesium Hydroxide 30 ml 04/11/17 17:17 Milk Of Magnesia - PO DAILY PRN CONSTIPATION Nicotine 14 mg 04/12/17 12:00 04/18/17 10:16 Nicoderm Patch - TD Not Given DAILY GERARD Nicotine Polacrilex 2 mg 04/12/17 11:23 04/12/17 12:05 Nicorette Gum - BUC 2 mg Q2H PRN Administration NICOTINE REPLACEMENT RX Multivit/Folic Acid/Iron 1 tab 04/12/17 10:00 04/18/17 10:16 Vitamins (Sjr) - PO 1 tab DAILY GERARD Administration Pseudoephedrine/Triprolidine 1 combo 04/11/17 17:17 Actifed - PO TID PRN NASAL CONGESTION Thiamine HCl 100 mg 04/11/17 22:00 04/17/17 21:33 Vitamin B1 - PO 100 mg HS GERARD Administration Current Side Effect: No Lab tests ordered: No Lab tests reviewed: Yes Provider note:: Patient requested to be discharge today, he completed 7 days and met short term goals, he will continue to address his issues at [facility] outpatient treatment program. He gained insights into his addiction and motivated to contiue maintain abstinence. Patient was encouraged to utilize all supports to prevent relapses. Scripts for Celexa and prn Vistaril provided, patient is stable for discharge today. Total face to face time:: 25 Mental Status Exam - Mental Status Exam Alert and Oriented to: Time, Place, Person Cognitive Function: Good Patient Appearance: Well Groomed Mood: Hopeful Affect: Appropriate, Mood Congruent Patient Behavior: Appropriate, Cooperative Speech Pattern: Clear, Appropriate Voice Loudness: Normal Thought Process: Intact, Goal Oriented Thought Disorder: Not Present Hallucinations: Denies Suicidal Ideation: Denies Homicidal Ideation: Denies Insight/Judgement: Fair Sleep: Fair Appetite: Good Muscle strength/Tone: Normal Gait/Station: Normal Psychiatric Treatment Plan - Problem List (1) Alcohol dependence Current Visit: No (2) Opioid dependence Current Visit: No (3) PTSD (post-traumatic stress disorder) Current Visit: No (4) Bipolar disorder Current Visit: No Comment: Self reports. (5) Cocaine dependence Current Visit: No Qualifiers:
== END 2017-04-18 11:20 | disposition home or self-care (01) | DRG 772 ==
LOC: YASAS 17:00 → Y5N 17:01
PROVIDERS: ADMIT Psychiatry & Neurology Psychiatry; ATTEND Psychiatry & Neurology Psychiatry
PROC: HZ42ZZZ Group Counseling for Substance Abuse Treatment, Cognitive-Behavioral (ICD-10-PCS; principal; 2017-04-11)
DX: F11.20 Opioid dependence, uncomplicated (principal); F10.20 Alcohol dependence, uncomplicated; F14.20 Cocaine dependence, uncomplicated; F31.9 Bipolar disorder, unspecified; F43.10 Post-traumatic stress disorder, unspecified; E11.9 Type 2 diabetes mellitus without complications; G47.30 Sleep apnea, unspecified; H40.9 Unspecified glaucoma
CPT/HCPCS: 82962

== ENCOUNTER 2017-11-04 09:35 | Inpatient (IN) | payer OTHER ==
[2017-11-04 09:55] VITALS: BMI 34.2
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
[2017-11-04] MEDS ORDERED: P-EPHED 60MG/TRIPROLIDI 2.5MG TABLET PO PRN (10:18)
[2017-11-04] MEDS ORDERED: ACETAMINOPHEN 325 MG TABLET (FP) PO PRN (10:18)
[2017-11-04] MEDS ORDERED: LOPERAMIDE HCL 2 MG CAPSULE PO PRN (10:18)
[2017-11-04] MEDS ORDERED: MENTHOL/PHENOL 1 EACH UD MM PRN (10:18)
[2017-11-04] MEDS ORDERED: guaiFENesin/D-METHORPHAN HB 10 ML UNIT-DOSE CUPS PO PRN (10:18)
[2017-11-04] MEDS ORDERED: MAGNESIUM HYDROX 2400MG/30ML ORAL SUSPENSION 30 ML CUP PO PRN (10:18)
[2017-11-04] MEDS ORDERED: MAGNESIUM CITRATE 300 ML BOTTLE PO PRN (10:18)
[2017-11-04] MEDS ORDERED: IBUPROFEN 400 MG TABLET (FP) PO PRN (10:18)
[2017-11-04] MEDS ORDERED: MAG HYDROX/AL HYDROX/SIMETH 30 ML UNIT-DOSE CUP PO PRN (10:18)
[2017-11-04] MEDS ORDERED: ALBUTEROL SO4 8 GM HFA INHALER IH PRN (10:22)
[2017-11-04] MEDS ORDERED: METHADONE HCL 10 MG TABLET (FOR DETOX USE ONLY) PO ONE ×2 (13:30→23:00)
[2017-11-04] MEDS: chlordiazePOXIDE HCL 25 MG CAPSULE PO SCH ×2 (16:53→22:12)
[2017-11-04] MEDS: INSULIN SLIDING SCALE (NOVOLOG) 1 VIAL SQ SCH ×3 (16:58→22:18)
[2017-11-04] MEDS ORDERED: INSULIN (NOVOLOG) ASPART 100 UNITS/ML 10ML VIAL ONE (17:06)
[2017-11-04] MEDS: NICOTINE 21 MG/24 HOURS TOPICAL PATCH TD SCH (17:12)
[2017-11-04] MEDS: glyBURIDE 5 MG TABLET (UD) PO SCH (18:09)
[2017-11-04] MEDS: chlordiazePOXIDE HCL 25 MG CAPSULE PO PRN (19:23)
[2017-11-04 19:58] LABS: URINE APPEARANCE TURBID; URINE BILIRUBIN NEGATIVE (<2.0 mg/dL); URINE COLOR AMBER; URINE GLUCOSE (UA) 2+ (NEGATIVE); URINE KETONE NEGATIVE (NEGATIVE); URINE LEUK ESTERASE NEGATIVE (NEGATIVE); URINE NITRITE NEGATIVE (NEGATIVE); URINE PROTEIN NEGATIVE (NEGATIVE)
[2017-11-04] MEDS: THIAMINE HCL 100 MG TABLET (FP) PO SCH (22:12)
[2017-11-04] MEDS: LATANOPROST 0.005% OPHTH SOLN 2.5ML BOTTLE OD SCH (22:13)
[2017-11-05] MEDS: chlordiazePOXIDE HCL 25 MG CAPSULE PO PRN ×2 (00:37→14:02)
[2017-11-05] MEDS: MELATONIN 5 MG TABLETS PO PRN ×2 (00:38→22:24)
[2017-11-05] MEDS: chlordiazePOXIDE HCL 25 MG CAPSULE PO SCH ×4 (06:14→22:22)
[2017-11-05] MEDS: glyBURIDE 5 MG TABLET (UD) PO SCH ×2 (06:18→17:25)
[2017-11-05] MEDS: INSULIN SLIDING SCALE (NOVOLOG) 1 VIAL SQ SCH ×4 (06:20→22:23)
[2017-11-05] MEDS ORDERED: METHADONE HCL 10 MG TABLET (FOR DETOX USE ONLY) PO SCH (10:00)
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
[2017-11-05] MEDS: PRENATAL VITAMINS W/ FOLIC ACID TABLET (FP) PO SCH (10:25)
[2017-11-05] MEDS: NICOTINE 21 MG/24 HOURS TOPICAL PATCH TD SCH (10:26)
[2017-11-05] MEDS ORDERED: CITALOPRAM HYDROBROMIDE 20 MG TABLET (FP) PO SCH (10:30)
[2017-11-05 10:51] LABS: ALBUMIN 3.3 g/dl (3.4-5.0); ANION GAP 10 MMOL/L (8-16); BLOOD UREA NITROGEN 14 mg/dL (7-18); CALCIUM 8.7 mg/dL (8.5-10.1); CHLORIDE 103 mmol/L (98-107); CO2 27 mmol/L (21-32); CREATININE 0.8 mg/dL (0.7-1.3); GLUCOSE,RANDOM 260 mg/dL (74-106); SGOT/AST 17 U/L (15-37); SGPT/ALT 28 U/L (12-78); SODIUM 140 mmol/L (136-145)
[2017-11-05 10:53] LABS: ALK PHOS 63 U/L (45-117); BILIRUBIN,TOTAL 0.2 mg/dL (0.2-1.0); TOT PROT 6.2 g/dl (6.4-8.2)
[2017-11-05 10:55] LABS: HEMATOCRIT 38.6 % (35.4-49); HEMOGLOBIN 13.2 GM/dL (11.7-16.9); MCH 30.8 pg (25.7-33.7); MCHC 34.1 g/dl (32.0-35.9); MEAN CELL VOLUME 90.2 fl (80-96); MEAN PLT VOLUME 9.6 fl (7.5-11.1); PLATELET COUNT 255 K/MM3 (134-434); RBC 4.29 M/mm3 (4.00-5.60); RDW 13.8 % (11.9-15.9); WHITE BLOOD COUNT 6.1 K/mm3 (4.0-10.0)
[2017-11-05] MEDS: CITALOPRAM HYDROBROMIDE 20 MG TABLET (FP) PO SCH (14:02)
--- NOTE | 2017-11-05 14:25 | PN ---
S CIWA - CIWA Score Nausea/Vomitin-Mild Nausea/No Vomiting Muscle Tremors: 4-Moderate,w/Arms Extend Anxiety: 3 Agitation: 4-Moderately Restless Paroxysmal Sweats: 1-Minimal Palms Moist Orientation: 0-Oriented Tacttile Disturbances: 0-None Auditory Disturbances: 0-None Visual Disturbances: 0-None Headache: 0-None Present CIWA-Ar Total Score: 13 S COWS - Scale Resting Pulse: 0= [place] 80 or Below Sweatin= Chills/Flushing Restless Observation: 1= Difficult to Sit Still Pupil Size: 0= Normal to Room Light Bone or Joint Aches: 2= Severe Diffuse Aches Runny Nose/ Eye Tearin= Nasal Congestion GI Upset > 30mins: 2= Nausea/Diarrhea Tremor Observation of Outstretched Hands: 2= Slight Tremor Visible Yawning Observation: 2= >3x During Session Anxiety or Irritability: 2=Irritable/Anxious Goose Flesh Skin: 0=Smooth Skin COWS Score: 13 S Progress Note (SOAP) Subjective: sweat muscle cramping tremor joints pain body aches restlessness anxiety gi distress Objective: 11/05/17 14:24 Vital Signs Temperature 97.3 F L 11/05/17 14:11 Pulse Rate 78 11/05/17 14:11 Respiratory Rate 18 11/05/17 14:11 Blood Pressure 127/68 11/05/17 14:11 O2 Sat by Pulse Oximetry (%) Laboratory Last Values WBC 6.1 K/mm3 (4.0-10.0) 11/05/17 07:40 RBC 4.29 M/mm3 (4.00-5.60) 11/05/17 07:40 Hgb 13.2 GM/dL (11.7-16.9) 11/05/17 07:40 Hct 38.6 % (35.4-49) 11/05/17 07:40 MCV 90.2 fl (80-96) 11/05/17 07:40 MCH 30.8 pg (25.7-33.7) 11/05/17 07:40 MCHC 34.1 g/dl (32.0-35.9) 11/05/17 07:40 RDW 13.8 % (11.9-15.9) 11/05/17 07:40 Plt Count 255 K/MM3 (134-434) 11/05/17 07:40 MPV 9.6 fl (7.5-11.1) 11/05/17 07:40 Sodium 140 mmol/L (136-145) 11/05/17 07:40 Potassium 4.0 mmol/L (3.5-5.1) 11/05/17 07:40 Chloride 103 mmol/L (98-107) 11/05/17 07:40 Carbon Dioxide 27 mmol/L (21-32) 11/05/17 07:40 Anion Gap 10 MMOL/L (8-16) 11/05/17 07:40 BUN 14 mg/dL (7-18) 11/05/17 07:40 Creatinine 0.8 mg/dL (0.7-1.3) 11/05/17 07:40 Creat Clearance w eGFR > 60 (>60) 11/05/17 07:40 POC Glucometer 317 UNITS (80-120) 11/05/17 11:12 Random Glucose 260 mg/dL (74-106) H D 11/05/17 07:40 Calcium 8.7 mg/dL (8.5-10.1) 11/05/17 07:40 Total Bilirubin 0.2 mg/dL (0.2-1.0) 11/05/17 07:40 AST 17 U/L (15-37) 11/05/17 07:40 ALT 28 U/L (12-78) 11/05/17 07:40 Alkaline Phosphatase 63 U/L (45-117) 11/05/17 07:40 Total Protein 6.2 g/dl (6.4-8.2) L 11/05/17 07:40 Albumin 3.3 g/dl (3.4-5.0) L 11/05/17 07:40 Urine Color Emily 11/04/17 18:00 Urine Appearance Turbid 11/04/17 18:00 Urine pH 6.0 (5.0-8.0) 11/04/17 18:00 Ur Specific [place] 1.028 (1.001-1.035) 11/04/17 18:00 Urine Protein Negative (NEGATIVE) 11/04/17 18:00 Urine Glucose (UA) 2+ (NEGATIVE) H 11/04/17 18:00 Urine Ketones Negative (NEGATIVE) 11/04/17 18:00 Urine Blood Negative (NEGATIVE) 11/04/17 18:00 Urine Nitrite Negative (NEGATIVE) 11/04/17 18:00 Urine Bilirubin Negative (<2.0 mg/dL) 11/04/17 18:00 Urine Urobilinogen 2.0 mg/dL (0.2-1.0) 11/04/17 18:00 Ur Leukocyte Esterase Negative (NEGATIVE) 11/04/17 18:00 RPR Titer Nonreactive (NONREACTIVE) 11/05/17 07:40 lab noted Assessment: 11/05/17 14:24 withdrawal sx Plan: continue detox
[2017-11-05] MEDS ORDERED: INSULIN (NOVOLOG) ASPART 100 UNITS/ML 10ML VIAL ONE ×2 (17:21→22:26)
[2017-11-05] MEDS: THIAMINE HCL 100 MG TABLET (FP) PO SCH (22:22)
[2017-11-05] MEDS: LATANOPROST 0.005% OPHTH SOLN 2.5ML BOTTLE OD SCH (22:22)
[2017-11-06] MEDS: chlordiazePOXIDE HCL 25 MG CAPSULE PO SCH ×2 (05:15→10:15)
[2017-11-06] MEDS: glyBURIDE 5 MG TABLET (UD) PO SCH ×2 (07:21→17:20)
[2017-11-06] MEDS: INSULIN SLIDING SCALE (NOVOLOG) 1 VIAL SQ SCH ×4 (07:22→22:09)
[2017-11-06] MEDS ORDERED: INSULIN (NOVOLOG) ASPART 100 UNITS/ML 10ML VIAL ONE ×3 (07:23→17:16)
[2017-11-06] MEDS: PRENATAL VITAMINS W/ FOLIC ACID TABLET (FP) PO SCH (10:15)
[2017-11-06] MEDS: METHADONE HCL 5 MG TABLET (FOR DETOX USE ONLY) PO SCH (10:15)
[2017-11-06] MEDS: CITALOPRAM HYDROBROMIDE 20 MG TABLET (FP) PO SCH (10:15)
[2017-11-06] MEDS: NICOTINE 21 MG/24 HOURS TOPICAL PATCH TD SCH (10:16)
--- NOTE | 2017-11-06 10:33 | PN ---
[facility] CIWA - CIWA Score Nausea/Vomitin-No Nausea/No Vomiting Muscle Tremors: 3 Anxiety: 3 Agitation: 3 Paroxysmal Sweats: 1-Minimal Palms Moist Orientation: 0-Oriented Tacttile Disturbances: 1-Very Mild Itch/Numbness Auditory Disturbances: 0-None Visual Disturbances: 0-None Headache: 1-Very Mild CIWA-Ar Total Score: 12 BHS COWS - Scale Resting Pulse: 0= [place] 80 or Below Sweatin= Chills/Flushing Restless Observation: 1= Difficult to Sit Still Pupil Size: 0= Normal to Room Light Bone or Joint Aches: 1= Mild Discomfort Runny Nose/ Eye Tearin= Runny Nose/Eyes GI Upset > 30mins: 1= Stomach Cramp Tremor Observation of Outstretched Hands: 2= Slight Tremor Visible Yawning Observation: 2= >3x During Session Anxiety or Irritability: 2=Irritable/Anxious Goose Flesh Skin: 0=Smooth Skin COWS Score: 12 S Progress Note (SOAP) Subjective: sweat trouble sleep at night tremor muscle cramping Objective: 11/06/17 10:47 Vital Signs Temperature 97.5 F L 11/06/17 09:22 Pulse Rate 66 11/06/17 09:22 Respiratory Rate 18 11/06/17 09:22 Blood Pressure 126/74 11/06/17 09:22 O2 Sat by Pulse Oximetry (%) Laboratory Last Values WBC 6.1 K/mm3 (4.0-10.0) 11/05/17 07:40 RBC 4.29 M/mm3 (4.00-5.60) 11/05/17 07:40 Hgb 13.2 GM/dL (11.7-16.9) 11/05/17 07:40 Hct 38.6 % (35.4-49) 11/05/17 07:40 MCV 90.2 fl (80-96) 11/05/17 07:40 MCH 30.8 pg (25.7-33.7) 11/05/17 07:40 MCHC 34.1 g/dl (32.0-35.9) 11/05/17 07:40 RDW 13.8 % (11.9-15.9) 11/05/17 07:40 Plt Count 255 K/MM3 (134-434) 11/05/17 07:40 MPV 9.6 fl (7.5-11.1) 11/05/17 07:40 Sodium 140 mmol/L (136-145) 11/05/17 07:40 Potassium 4.0 mmol/L (3.5-5.1) 11/05/17 07:40 Chloride 103 mmol/L (98-107) 11/05/17 07:40 Carbon Dioxide 27 mmol/L (21-32) 11/05/17 07:40 Anion Gap 10 MMOL/L (8-16) 11/05/17 07:40 BUN 14 mg/dL (7-18) 11/05/17 07:40 Creatinine 0.8 mg/dL (0.7-1.3) 11/05/17 07:40 Creat Clearance w eGFR > 60 (>60) 11/05/17 07:40 POC Glucometer 260 UNITS (80-120) 11/06/17 05:15 Random Glucose 260 mg/dL (74-106) H D 11/05/17 07:40 Calcium 8.7 mg/dL (8.5-10.1) 11/05/17 07:40 Total Bilirubin 0.2 mg/dL (0.2-1.0) 11/05/17 07:40 AST 17 U/L (15-37) 11/05/17 07:40 ALT 28 U/L (12-78) 11/05/17 07:40 Alkaline Phosphatase 63 U/L (45-117) 11/05/17 07:40 Total Protein 6.2 g/dl (6.4-8.2) L 11/05/17 07:40 Albumin 3.3 g/dl (3.4-5.0) L 11/05/17 07:40 Urine Color Emily 11/04/17 18:00 Urine Appearance Turbid 11/04/17 18:00 Urine pH 6.0 (5.0-8.0) 11/04/17 18:00 Ur Specific [place] 1.028 (1.001-1.035) 11/04/17 18:00 Urine Protein Negative (NEGATIVE) 11/04/17 18:00 Urine Glucose (UA) 2+ (NEGATIVE) H 11/04/17 18:00 Urine Ketones Negative (NEGATIVE) 11/04/17 18:00 Urine Blood Negative (NEGATIVE) 11/04/17 18:00 Urine Nitrite Negative (NEGATIVE) 11/04/17 18:00 Urine Bilirubin Negative (<2.0 mg/dL) 11/04/17 18:00 Urine Urobilinogen 2.0 mg/dL (0.2-1.0) 11/04/17 18:00 Ur Leukocyte Esterase Negative (NEGATIVE) 11/04/17 18:00 RPR Titer Nonreactive (NONREACTIVE) 11/05/17 07:40 lab noted Assessment: 11/06/17 10:48 withdrawal sx Plan: continue detox
--- NOTE | 2017-11-06 14:20 | EKG ---
Test Reason : Blood Pressure : / mmHG Vent. Rate : 095 BPM Atrial Rate : 095 BPM P-R Int : 136 ms QRS Dur : 092 ms QT Int : 352 ms P-R-T Axes : 059 055 037 degrees QTc Int : 442 ms NORMAL SINUS RHYTHM NORMAL ECG WHEN COMPARED WITH ECG OF 06-APR-2017 12:47, NO SIGNIFICANT CHANGE WAS FOUND Confirmed by RADHAMES TATUM MD ([id number]) on 11/06/2017 2:20:18 PM Referred By: Confirmed By:RADHAMES TATUM MD
[2017-11-06] MEDS: chlordiazePOXIDE HCL 25 MG CAPSULE PO PRN (14:46)
[2017-11-06] MEDS: chlordiazePOXIDE 5 MG CAPSULE PO SCH ×2 (17:00→22:08)
[2017-11-06] MEDS: THIAMINE HCL 100 MG TABLET (FP) PO SCH (22:08)
[2017-11-06] MEDS: LATANOPROST 0.005% OPHTH SOLN 2.5ML BOTTLE OD SCH (22:09)
[2017-11-06] MEDS: MELATONIN 5 MG TABLETS PO PRN (22:10)
[2017-11-07] MEDS: chlordiazePOXIDE 5 MG CAPSULE PO SCH ×2 (05:38→10:26)
[2017-11-07] MEDS ORDERED: INSULIN (NOVOLOG) ASPART 100 UNITS/ML 10ML VIAL ONE ×3 (07:29→22:15)
[2017-11-07] MEDS: glyBURIDE 5 MG TABLET (UD) PO SCH ×2 (07:57→17:30)
[2017-11-07] MEDS: INSULIN SLIDING SCALE (NOVOLOG) 1 VIAL SQ SCH ×4 (07:57→22:13)
[2017-11-07] MEDS: PRENATAL VITAMINS W/ FOLIC ACID TABLET (FP) PO SCH (10:25)
[2017-11-07] MEDS: CITALOPRAM HYDROBROMIDE 20 MG TABLET (FP) PO SCH (10:25)
[2017-11-07] MEDS: METHADONE HCL 5 MG TABLET (FOR DETOX USE ONLY) PO SCH (10:25)
[2017-11-07] MEDS: NICOTINE 21 MG/24 HOURS TOPICAL PATCH TD SCH (10:26)
--- NOTE | 2017-11-07 15:06 | PN ---
[facility] Progress Note (SOAP) Subjective: JOINTS PAIN BODY ACHES TROUBLE SLEEP AT NIGHT, SWEAT ANXIETY RESTLESSNESS TREMOR PATIENT REQUESTS PSYCHIATRIST EVALUATION Objective: 11/07/17 15:06 Vital Signs Temperature 97.3 F L 11/07/17 13:31 Pulse Rate 85 11/07/17 13:31 Respiratory Rate 18 11/07/17 13:31 Blood Pressure 140/75 11/07/17 13:31 O2 Sat by Pulse Oximetry (%) Laboratory Last Values WBC 6.1 K/mm3 (4.0-10.0) 11/05/17 07:40 RBC 4.29 M/mm3 (4.00-5.60) 11/05/17 07:40 Hgb 13.2 GM/dL (11.7-16.9) 11/05/17 07:40 Hct 38.6 % (35.4-49) 11/05/17 07:40 MCV 90.2 fl (80-96) 11/05/17 07:40 MCH 30.8 pg (25.7-33.7) 11/05/17 07:40 MCHC 34.1 g/dl (32.0-35.9) 11/05/17 07:40 RDW 13.8 % (11.9-15.9) 11/05/17 07:40 Plt Count 255 K/MM3 (134-434) 11/05/17 07:40 MPV 9.6 fl (7.5-11.1) 11/05/17 07:40 Sodium 140 mmol/L (136-145) 11/05/17 07:40 Potassium 4.0 mmol/L (3.5-5.1) 11/05/17 07:40 Chloride 103 mmol/L (98-107) 11/05/17 07:40 Carbon Dioxide 27 mmol/L (21-32) 11/05/17 07:40 Anion Gap 10 MMOL/L (8-16) 11/05/17 07:40 BUN 14 mg/dL (7-18) 11/05/17 07:40 Creatinine 0.8 mg/dL (0.7-1.3) 11/05/17 07:40 Creat Clearance w eGFR > 60 (>60) 11/05/17 07:40 POC Glucometer 333 UNITS (80-120) 09/04/18 11:10 Random Glucose 260 mg/dL (74-106) H D 11/05/17 07:40 Calcium 8.7 mg/dL (8.5-10.1) 11/05/17 07:40 Total Bilirubin 0.2 mg/dL (0.2-1.0) 11/05/17 07:40 AST 17 U/L (15-37) 11/05/17 07:40 ALT 28 U/L (12-78) 11/05/17 07:40 Alkaline Phosphatase 63 U/L (45-117) 11/05/17 07:40 Total Protein 6.2 g/dl (6.4-8.2) L 11/05/17 07:40 Albumin 3.3 g/dl (3.4-5.0) L 11/05/17 07:40 Urine Color Emily 11/04/17 18:00 Urine Appearance Turbid 11/04/17 18:00 Urine pH 6.0 (5.0-8.0) 11/04/17 18:00 Ur Specific [place] 1.028 (1.001-1.035) 11/04/17 18:00 Urine Protein Negative (NEGATIVE) 11/04/17 18:00 Urine Glucose (UA) 2+ (NEGATIVE) H 11/04/17 18:00 Urine Ketones Negative (NEGATIVE) 11/04/17 18:00 Urine Blood Negative (NEGATIVE) 11/04/17 18:00 Urine Nitrite Negative (NEGATIVE) 11/04/17 18:00 Urine Bilirubin Negative (<2.0 mg/dL) 11/04/17 18:00 Urine Urobilinogen 2.0 mg/dL (0.2-1.0) 11/04/17 18:00 Ur Leukocyte Esterase Negative (NEGATIVE) 11/04/17 18:00 RPR Titer Nonreactive (NONREACTIVE) 11/05/17 07:40 LAB NOTED HYPERGLUCEMIA Assessment: 11/07/17 15:07 WITHDRAWAL SX 11/07/17 15:08 DIABETES II Plan: CONTINUE DETOX HBG A1C DIETARY REFERRAL
[2017-11-07] MEDS: NICOTINE POLACRILEX 4 MG GUM BUC PRN (15:43)
--- NOTE | 2017-11-07 16:24 | PN ---
Psychiatric Progress Note Vital Signs: Vital Signs Period Temp Pulse Resp BP Sys/Dunbar Pulse Ox Last 24 Hr 97.3 F-98.2 F 69-85 16-20 116-140/61-75 Date of Session: 11/07/17 Chief Complaint:: "I have anxiety and difficulty sleeping." HPI: Patient admitted to for alcohol and opioid dependence. ROS: COPD, ASA, Glaucoma, DM Current Medications: Active Medications Generic Name Dose Route Start Last Admin Trade Name Shadiq PRN Reason Stop Dose Admin Acetaminophen 650 mg 11/04/17 10:18 Tylenol - PO Q4H PRN FEVER Al Hydroxide/Mg Hydroxide 30 ml 11/04/17 10:18 Mylanta Oral Suspension - PO Q6H PRN DYSPEPSIA Albuterol Sulfate 0 puff 11/04/17 10:22 Ventolin Hfa Inhaler - IH Q4H PRN WHEEZING Chlordiazepoxide HCl 10 mg 11/07/17 17:00 Librium - PO 11/08/17 11:01 [id number] GERARD Citalopram Hydrobromide 20 mg 11/05/17 13:45 11/07/17 10:25 Celexa - PO 20 mg DAILY GERARD Administration Eucalyptus/Menthol/Phenol/Sorbitol 1 each 11/04/17 10:18 Cepastat Lozenge - MM Q4H PRN SORE THROAT Glyburide 5 mg 11/04/17 16:30 11/07/17 07:57 Diabeta - PO 5 mg BIDAC GERARD Administration Guaifenesin 10 ml 11/04/17 10:18 Robitussin Dm - PO Q6H PRN COUGH Ibuprofen 400 mg 11/04/17 10:18 Motrin - PO Q6H PRN PAIN LEVEL 4-6 Insulin Aspart 1 vial 11/04/17 11:00 11/07/17 12:04 Novolog Vial Sliding Scale - SQ 8 units ACHS GERARD Administration Protocol Latanoprost 1 drop 11/04/17 22:00 11/06/17 22:09 Xalatan 0.005% Eye Drops - OD 1 drop HS GERARD Administration Loperamide HCl 4 mg 11/04/17 10:18 Imodium - PO Q6H PRN DIARRHEA Magnesium Citrate 300 ml 11/04/17 10:18 Citroma - PO Q48H PRN CONSTIPATION Magnesium Hydroxide 30 ml 11/04/17 10:18 Milk Of Magnesia - PO DAILY PRN CONSTIPATION Melatonin 5 mg 11/04/17 22:00 11/06/17 22:10 Melatonin PO 5 mg HS PRN Administration INSOMNIA Methadone HCl 5 mg 11/09/17 06:00 Dolophine - PO 11/09/17 06:01 DAILY@0600 GERARD Methadone HCl 10 mg 11/08/17 10:00 Dolophine - PO 11/08/17 10:01 DAILY GERARD Nicotine 21 mg 11/04/17 11:15 11/07/17 10:26 Nicoderm Patch - TD Not Given DAILY GERARD Nicotine Polacrilex 4 mg 11/06/17 12:49 11/07/17 15:43 Nicorette Gum - BUC 4 mg Q2H PRN Administration NICOTINE REPLACEMENT RX Multivit/Folic Acid/Iron 1 tab 11/05/17 10:00 11/07/17 10:25 Vitamins (Sjr) - PO 1 tab DAILY GERARD Administration Pseudoephedrine/Triprolidine 1 combo 11/04/17 10:18 Actifed - PO TID PRN NASAL CONGESTION Thiamine HCl 100 mg 11/04/17 22:00 11/06/17 22:08 Vitamin B1 - PO 100 mg HS GERARD Administration Medication(s) Change(s): Yes. Will add Vistaril 50mg q4h Current Side Effect: No Lab tests ordered: No Lab tests reviewed: Yes Provider note:: Football Pad Repairer able to speak to patient concerning psychiatric follow up. Pt. complaining of increase anxiety while on detox. Pt feels "closed in" and is concerned about his discharge. Pharmacy claims reviewed and noted patient has been given prescriptions of vistaril 50mg in the past. Medication discussed and patient agreeable to starting vistaril 25mg q4h. Will also increase melatonin to 8mg due to patient c/o difficulty sleeping. Benefits and side effects discussed. Verbal consent given. Total face to face time:: 25 Mental Status Exam - Mental Status Exam Alert and Oriented to: Time, Place, Person Cognitive Function: Good Patient Appearance: Well Groomed Mood: Anxious Affect: Mood Congruent Patient Behavior: Appropriate, Cooperative Speech Pattern: Clear, Appropriate Voice Loudness: Normal Thought Process: Intact, Goal Oriented Thought Disorder: Not Present Hallucinations: Denies Suicidal Ideation: Denies Homicidal Ideation: Denies Insight/Judgement: Poor Sleep: Poorly Appetite: Fair Muscle strength/Tone: Normal Gait/Station: Normal Psychiatric Treatment Plan - Problem List (1) Alcohol dependence with uncomplicated withdrawal Current Visit: Yes (2) Opioid dependence with withdrawal Current Visit: Yes (3) Anxiety Current Visit: Yes (4) Substance induced mood disorder Current Visit: Yes
[2017-11-07] MEDS ORDERED: MELATONIN 5 MG, MELATONIN 3 MG PO PRN (16:34)
[2017-11-07] MEDS: chlordiazePOXIDE HCL 10 MG CAPSULE PO SCH ×2 (18:01→22:10)
[2017-11-07] MEDS: hydrOXYzine PAMOATE 25 MG CAPSULE (FP) PO PRN (20:12)
[2017-11-07] MEDS ORDERED: MELATONIN 5 MG TABLETS PO PRN (22:00)
[2017-11-07] MEDS: LATANOPROST 0.005% OPHTH SOLN 2.5ML BOTTLE OD SCH (22:10)
[2017-11-07] MEDS: THIAMINE HCL 100 MG TABLET (FP) PO SCH (22:10)
[2017-11-08] MEDS: chlordiazePOXIDE HCL 10 MG CAPSULE PO SCH ×2 (05:37→10:42)
[2017-11-08] MEDS ORDERED: INSULIN (NOVOLOG) ASPART 100 UNITS/ML 10ML VIAL ONE ×2 (06:20→13:50)
[2017-11-08] MEDS: glyBURIDE 5 MG TABLET (UD) PO SCH (06:21)
[2017-11-08] MEDS: INSULIN SLIDING SCALE (NOVOLOG) 1 VIAL SQ SCH ×3 (08:00→13:53)
[2017-11-08] MEDS: hydrOXYzine PAMOATE 25 MG CAPSULE (FP) PO PRN ×2 (08:28→15:03)
[2017-11-08] MEDS ORDERED: METHADONE HCL 10 MG TABLET (FOR DETOX USE ONLY) PO SCH (10:00)
--- NOTE | 2017-11-08 10:30 | PN ---
[facility] Progress Note (SOAP) Subjective: interrupted sleep,sweats , needs distilled water fpr machine Objective: 11/08/17 10:26 Vital Signs Temperature 97.9 F 11/08/17 06:10 Pulse Rate 62 11/08/17 06:10 Respiratory Rate 20 11/08/17 06:10 Blood Pressure 113/70 11/08/17 06:10 O2 Sat by Pulse Oximetry (%) Laboratory Tests 11/04/17 11/04/17 11/04/17 16:56 18:00 22:17 WBC RBC Hgb Hct MCV MCH MCHC RDW Plt Count MPV Sodium Potassium Chloride Carbon Dioxide Anion Gap BUN Creatinine Creat Clearance w eGFR POC Glucometer 308 204 Random Glucose Calcium Total Bilirubin AST ALT Alkaline Phosphatase Total Protein Albumin Urine Color Emily Urine Appearance Turbid Urine pH 6.0 Ur Specific [place] 1.028 Urine Protein Negative Urine Glucose (UA) 2+ H Urine Ketones Negative Urine Blood Negative Urine Nitrite Negative Urine Bilirubin Negative Urine Urobilinogen 2.0 Ur Leukocyte Esterase Negative RPR Titer 11/05/17 11/05/17 11/05/17 06:16 07:40 07:40 WBC 6.1 RBC 4.29 Hgb 13.2 Hct 38.6 MCV 90.2 MCH 30.8 MCHC 34.1 RDW 13.8 Plt Count 255 MPV 9.6 Sodium 140 Potassium 4.0 Chloride 103 Carbon Dioxide 27 Anion Gap 10 BUN 14 Creatinine 0.8 Creat Clearance w eGFR > 60 POC Glucometer 193 Random Glucose 260 H D Calcium 8.7 Total Bilirubin 0.2 AST 17 ALT 28 Alkaline Phosphatase 63 Total Protein 6.2 L Albumin 3.3 L Urine Color Urine Appearance Urine pH Ur Specific [place] Urine Protein Urine Glucose (UA) Urine Ketones Urine Blood Urine Nitrite Urine Bilirubin Urine Urobilinogen Ur Leukocyte Esterase RPR Titer 11/05/17 11/05/17 11/05/17 07:40 11:12 16:40 WBC RBC Hgb Hct MCV MCH MCHC RDW Plt Count MPV Sodium Potassium Chloride Carbon Dioxide Anion Gap BUN Creatinine Creat Clearance w eGFR POC Glucometer 317 349 Random Glucose Calcium Total Bilirubin AST ALT Alkaline Phosphatase Total Protein Albumin Urine Color Urine Appearance Urine pH Ur Specific [place] Urine Protein Urine Glucose (UA) Urine Ketones Urine Blood Urine Nitrite Urine Bilirubin Urine Urobilinogen Ur Leukocyte Esterase RPR Titer Nonreactive 11/05/17 11/06/17 11/06/17 22:21 05:15 11:32 WBC RBC Hgb Hct MCV MCH MCHC RDW Plt Count MPV Sodium Potassium Chloride Carbon Dioxide Anion Gap BUN Creatinine Creat Clearance w eGFR POC Glucometer 377 260 223 Random Glucose Calcium Total Bilirubin AST ALT Alkaline Phosphatase Total Protein Albumin Urine Color Urine Appearance Urine pH Ur Specific [place] Urine Protein Urine Glucose (UA) Urine Ketones Urine Blood Urine Nitrite Urine Bilirubin Urine Urobilinogen Ur Leukocyte Esterase RPR Titer 11/06/17 11/07/17 11/07/17 16:46 05:37 11:10 WBC RBC Hgb Hct MCV MCH MCHC RDW Plt Count MPV Sodium Potassium Chloride Carbon Dioxide Anion Gap BUN Creatinine Creat Clearance w eGFR POC Glucometer 317 220 333 Random Glucose Calcium Total Bilirubin AST ALT Alkaline Phosphatase Total Protein Albumin Urine Color Urine Appearance Urine pH Ur Specific [place] Urine Protein Urine Glucose (UA) Urine Ketones Urine Blood Urine Nitrite Urine Bilirubin Urine Urobilinogen Ur Leukocyte Esterase RPR Titer 11/07/17 11/08/17 16:35 05:39 WBC RBC Hgb Hct MCV MCH MCHC RDW Plt Count MPV Sodium Potassium Chloride Carbon Dioxide Anion Gap BUN Creatinine Creat Clearance w eGFR POC Glucometer 386 169 Random Glucose Calcium Total Bilirubin AST ALT Alkaline Phosphatase Total Protein Albumin Urine Color Urine Appearance Urine pH Ur Specific [place] Urine Protein Urine Glucose (UA) Urine Ketones Urine Blood Urine Nitrite Urine Bilirubin Urine Urobilinogen Ur Leukocyte Esterase RPR Titer pt lying in bed with sleep mask on -easy arousable , aox3 Assessment: 11/08/17 10:27 withdrawal sx's sleep apnea Plan: cont. detox increase fluids obtain distilled water for machine (none available in house) d/c in am
[2017-11-08] MEDS: CITALOPRAM HYDROBROMIDE 20 MG TABLET (FP) PO SCH (10:42)
[2017-11-08] MEDS: PRENATAL VITAMINS W/ FOLIC ACID TABLET (FP) PO SCH (10:42)
[2017-11-08] MEDS: NICOTINE 21 MG/24 HOURS TOPICAL PATCH TD SCH (10:42)
[2017-11-08] MEDS: NICOTINE POLACRILEX 4 MG GUM BUC PRN (13:44)
[2017-11-08 13:50] VITALS: BP 117/60; PULSE 77; TEMP 98.2
--- NOTE | 2017-11-08 15:54 | DS ---
[facility] Detox Discharge Summary Admission Date: 11/04/17 Discharge Date: 11/08/17 - History Present History: Alcohol Dependence, Cannabis Dependence, Cocaine Dependence, Opioid Dependence - Physical Exam Results Vital Signs: Vital Signs Temperature 98.2 F 11/08/17 13:49 Pulse Rate 77 11/08/17 13:49 Respiratory Rate 18 11/08/17 13:49 Blood Pressure 117/60 11/08/17 13:49 O2 Sat by Pulse Oximetry (%) - Treatment Hospital Course: Detox Protocol Followed, Detoxed Safely, Responded well, Discharged Condition Good - Medication Discharge Medications: Ambulatory Orders Citalopram Hydrobromide [Celexa -] 10 mg PO DAILY #30 tablet 04/18/17 Albuterol Sulfate Inhaler - [Ventolin HFA Inhaler -] 2 inh PO Q4H PRN #1 inhaler 11/08/17 Glyburide 5 mg PO BID #60 tablet 11/08/17 Latanoprost 0.005% Eye Drops [Xalatan 0.005% Eye Drops -] 1 drop OD HS #1 drops 11/08/17 - Diagnosis (1) Alcohol dependence with uncomplicated withdrawal Current Visit: Yes Status: Chronic (2) Anxiety Current Visit: Yes Status: Chronic (3) Nicotine dependence Current Visit: Yes Status: Chronic Qualifiers: Nicotine product type: cigarettes Substance use status: uncomplicated Qualified Code(s): F17.210 - Nicotine dependence, cigarettes, uncomplicated (4) Opioid dependence with withdrawal Current Visit: Yes Status: Chronic (5) Diabetes mellitus treated with oral medication Current Visit: Yes Status: Chronic (6) Sleep apnea with use of continuous positive airway pressure (CPAP) Current Visit: Yes Status: Chronic
[2017-11-09] MEDS ORDERED: METHADONE HCL 5 MG TABLET (FOR DETOX USE ONLY) PO SCH (06:00)
== END 2017-11-08 16:00 | disposition home or self-care (01) | DRG 773 ==
LOC: YASAS 09:35 → Y6N 13:11
PROVIDERS: ATTEND Surgery
PROC: HZ2ZZZZ Detoxification Services for Substance Abuse Treatment (ICD-10-PCS; principal; 2017-11-04)
DX: F11.23 Opioid dependence with withdrawal (principal); F10.230 Alcohol dependence with withdrawal, uncomplicated; F41.9 Anxiety disorder, unspecified; F31.9 Bipolar disorder, unspecified; F19.24 Other psychoactive substance dependence with psychoactive substance-induced mood disorder; E11.9 Type 2 diabetes mellitus without complications; Z79.84 Long term (current) use of oral hypoglycemic drugs; J44.9 Chronic obstructive pulmonary disease, unspecified; H40.53 Glaucoma secondary to other eye disorders, bilateral; E66.09 Other obesity due to excess calories; Z68.34 Body mass index [BMI] 34.0-34.9, adult; Z86.19 Personal history of other infectious and parasitic diseases; Z91.5 Personal history of self-harm
CPT/HCPCS: 36415; 80053; 81003; 82962; 83036; 85027; 86593; 93005; 93010

== ENCOUNTER 2018-11-30 12:16 | Inpatient (IN) | payer OTHER ==
[2018-11-30 18:35] VITALS: BMI 33.7
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
[2018-11-30] MEDS ORDERED: MENTHOL/PHENOL 1 EACH UD MM PRN (21:28)
[2018-11-30] MEDS ORDERED: MELATONIN 5 MG TABLETS PO PRN (21:28)
[2018-11-30] MEDS ORDERED: cloNIDine HCL 0.1 MG TABLET PO PRN (21:28)
[2018-11-30] MEDS ORDERED: IBUPROFEN 400 MG TABLET (FP) PO PRN (21:28)
[2018-11-30] MEDS ORDERED: METHADONE HCL 10 MG TABLET (FOR DETOX USE ONLY) PO ONE (21:28)
[2018-11-30] MEDS ORDERED: ACETAMINOPHEN 325 MG TABLET (FP) PO PRN ×2 (21:28)
[2018-11-30] MEDS ORDERED: MAGNESIUM CITRATE 300 ML BOTTLE PO PRN (21:28)
[2018-11-30] MEDS ORDERED: guaiFENesin 200 MG/10 ML 10 ML UNIT-DOSE CUPS PO PRN (21:28)
[2018-11-30] MEDS ORDERED: METHOCARBAMOL 500 MG TABLET PO PRN (21:28)
[2018-11-30] MEDS ORDERED: chlordiazePOXIDE HCL 25 MG CAPSULE PO ONE (21:28)
[2018-11-30] MEDS ORDERED: MAG HYDROX/AL HYDROX/SIMETH 30 ML UNIT-DOSE CUP PO PRN (21:28)
[2018-11-30] MEDS ORDERED: chlordiazePOXIDE HCL 10 MG CAPSULE PO PRN (21:28)
[2018-11-30] MEDS ORDERED: MAGNESIUM HYDROX 2400MG/30ML ORAL SUSPENSION 30 ML CUP PO PRN (21:28)
[2018-11-30] MEDS ORDERED: NICOTINE POLACRILEX 2 MG GUM BUC PRN (21:28)
[2018-11-30] MEDS ORDERED: BISMUTH SUBSALICYLATE 524 MG/30 ML UD PO PRN (21:28)
[2018-11-30] MEDS ORDERED: ALBUTEROL SO4 8 GM HFA INHALER IH PRN (23:05)
[2018-11-30] MEDS ORDERED: ALBUTEROL SO4 0.083% IH SOL 2.5 MG/3 ML VIAL.NEB. NEB PRN (23:06)
[2018-11-30] MEDS: THIAMINE HCL 100 MG TABLET (FP) PO SCH (23:38)
[2018-12-01] MEDS: chlordiazePOXIDE HCL 25 MG CAPSULE PO SCH ×3 (06:28→22:23)
[2018-12-01] MEDS ORDERED: METHADONE HCL 10 MG TABLET PO ONE (10:00)
[2018-12-01 10:25] LABS: PH,URINE 6.5 (5.0-8.0); URINE APPEARANCE CLEAR; URINE BILIRUBIN NEGATIVE (NEGATIVE); URINE COLOR YELLOW; URINE GLUCOSE (UA) 3+ (NEGATIVE); URINE KETONE NEGATIVE (NEGATIVE); URINE LEUK ESTERASE NEGATIVE (NEGATIVE); URINE NITRITE NEGATIVE (NEGATIVE); URINE PROTEIN NEGATIVE (NEGATIVE)
[2018-12-01 10:31] LABS: ALBUMIN 3.8 g/dl (3.4-5.0); BILIRUBIN,TOTAL 0.4 mg/dL (0.2-1); BLOOD UREA NITROGEN 11.1 mg/dL (7-18); CALCIUM 9.1 mg/dL (8.5-10.1); POTASSIUM 4.2 mmol/L (3.5-5.1)
[2018-12-01 10:32] LABS: HEMATOCRIT 41.3 % (35.4-49); HEMOGLOBIN 14.2 GM/dL (11.7-16.9); MCH 31.3 pg (25.7-33.7); MCHC 34.3 g/dl (32.0-35.9); MEAN CELL VOLUME 91.3 fl (80-96); MEAN PLT VOLUME 9.8 fl (7.5-11.1); PLATELET COUNT 291 K/MM3 (134-434); RBC 4.53 M/mm3 (4.00-5.60); RDW 13.7 % (11.9-15.9); WHITE BLOOD COUNT 6.4 K/mm3 (4.0-10.0)
[2018-12-01] MEDS: NICOTINE 14 MG/24 HOURS TOPICAL PATCH TD SCH (10:53)
[2018-12-01] MEDS: PRENATAL VITAMINS W/ FOLIC ACID TABLET (FP) PO SCH (10:53)
[2018-12-01] MEDS: glyBURIDE 5 MG TABLET (UD) PO SCH ×2 (11:17→17:34)
--- NOTE | 2018-12-01 14:09 | PN ---
[facility] CIWA - CIWA Score Nausea/Vomitin-No Nausea/No Vomiting Muscle Tremors: 2 Anxiety: 2 Agitation: 2 Paroxysmal Sweats: 3 Orientation: 0-Oriented Tacttile Disturbances: 0-None Auditory Disturbances: 0-None Visual Disturbances: 0-None Headache: 2-Mild CIWA-Ar Total Score: 11 S COWS - Scale Resting Pulse: 0= [place] 80 or Below Sweatin= Beads of Sweat on Face Restless Observation: 1= Difficult to Sit Still Pupil Size: 0= Normal to Room Light Bone or Joint Aches: 2= Severe Diffuse Aches Runny Nose/ Eye Tearin= None GI Upset > 30mins: 0= None Tremor Observation of Outstretched Hands: 2= Slight Tremor Visible Yawning Observation: 1= 1-2x During Session Anxiety or Irritability: 2=Irritable/Anxious Goose Flesh Skin: 0=Smooth Skin COWS Score: 11 S Progress Note (SOAP) Subjective: c/o irritability, anxiety, headache, sweats, and interrupted sleep. Objective: 12/01/18 14:08 Vital Signs 12/01/18 12/01/18 07:30 09:55 Temperature 97.7 F 97.7 F Pulse Rate 64 69 Respiratory 18 18 Rate Blood Pressure 128/72 119/75 Lab Results WBC 6.4 K/mm3 (4.0-10.0) 12/01/18 07:40 RBC 4.53 M/mm3 (4.00-5.60) 12/01/18 07:40 Hgb 14.2 GM/dL (11.7-16.9) 12/01/18 07:40 Hct 41.3 % (35.4-49) 12/01/18 07:40 MCV 91.3 fl (80-96) 12/01/18 07:40 MCHC 34.3 g/dl (32.0-35.9) 12/01/18 07:40 RDW 13.7 % (11.9-15.9) 12/01/18 07:40 Plt Count 291 K/MM3 (134-434) 12/01/18 07:40 Sodium 139 mmol/L (136-145) 12/01/18 07:40 Potassium 4.2 mmol/L (3.5-5.1) 12/01/18 07:40 Chloride 102 mmol/L (98-107) 12/01/18 07:40 Carbon Dioxide 29 mmol/L (21-32) 12/01/18 07:40 Anion Gap 8 MMOL/L (8-16) 12/01/18 07:40 BUN 11.1 mg/dL (7-18) 12/01/18 07:40 Creatinine 1.0 mg/dL (0.55-1.3) 12/01/18 07:40 Random Glucose 380 mg/dL (74-106) H 12/01/18 07:40 Calcium 9.1 mg/dL (8.5-10.1) 12/01/18 07:40 Labs noted. Assessment: 12/01/18 14:08 Pt is alert and oriented x3 and in no acute respiratory distress. Full ROM, ambulating in the unit. Withdrawal symptoms. Plan: continue detox.
--- NOTE | 2018-12-01 15:07 | CONSULT ---
[facility] Psychiatric Consult - Data Date of interview: 12/01/18 Admission source: [facility] Identifying data: Readmission to [facility] for this 48 y/o male self- referred for detoxification. LUZ issues : heroin, alcohol, cocaine, nicotine. Seen on . Patient is single, no dependents, homeless, unemployed and suppirted on SSI benefits. Substance Abuse History: Discussed in this session. Details in current [facility] report as follows : Smoking history: Current every day smoker. Have you smoked in the past 12 months: Yes. Aproximately how many cigarettes per day: 10. Hx Chewing Tobacco Use: No. Initiated information on smoking cessation: Yes. ' Breaking Loose' booklet given: 11/30/18. - Substance & Tx. History. Hx Alcohol Use: Yes. Hx Substance Use: Yes. Substance Use Type: Alcohol, Cocaine , Heroin. Hx Substance Use Treatment: Yes (detox, rehab, past [facility]). - Substances abused. Alcohol. Substance route: Oral. Frequency: 3-6 times per week. Amount used: 2 six packs of beer (16oz). Age of first use: 12. Date of last use: 11/30/18. Heroin. Substance route: Inhalation. Frequency : Daily. Amount used: 4bags/day. Age of first use: 44. Date of last use: Medical History: Medical profile is remarkable for sleep apnea (uses own CPAP device), COPD, diabetes mellitus, antecedent of gonorrhea (age 15) and orthosurgery for fracture of right hand (2007). Psychiatric History: Patient admits to a history of multiple psychiatric hospitalizations ([facility], [facility], [facility], [facility], [facility]). Diagnosed with MDD, Bipolar Disorder and PTSD. Mr Hutchison states that he used to be followed at [facility] clinic. No show for several months. Non-adherence to his medication (reportedly celexa 10 mg/day). Patient endorses a distant history of multiple suicide attempts (samoan roulette, ideation to jump from high places). Physical/Sexual Abuse/Trauma History: Patient denies. Additional Comment: Urine drug screen results: ABRAHAN-Cocaine, FEN-Fentanyl, MTD- Methadone. Noted. Mental Status Exam - Mental Status Exam Alert and Oriented to: Time, Place, Person Cognitive Function: Good Patient Appearance: Well Groomed (obese) Mood: Withdrawn, Hopeful Affect: Mood Congruent, Constricted Patient Behavior: Fatigued, Appropriate, Cooperative Speech Pattern: Clear, Appropriate Voice Loudness: Normal Thought Process: Intact, Goal Oriented Thought Disorder: Not Present Hallucinations: Denies Suicidal Ideation: Denies Homicidal Ideation: Denies Insight/Judgement: Poor Sleep: Fair Appetite: Good Muscle strength/Tone: Normal Gait/Station: Normal Psychiatric Findings - Problem List ([place] 1, 2,3) (1) Alcohol dependence with uncomplicated withdrawal Current Visit: Yes Status: Acute (2) Opioid dependence with withdrawal Current Visit: Yes Status: Acute (3) Cocaine dependence Current Visit: Yes Status: Chronic Qualifiers: Substance use status: uncomplicated Qualified Code(s): F14.20 - Cocaine dependence, uncomplicated (4) Nicotine dependence Current Visit: Yes Status: Chronic Qualifiers: Nicotine product type: cigarettes Substance use status: uncomplicated Qualified Code(s): F17.210 - Nicotine dependence, cigarettes, uncomplicated (5) Substance induced mood disorder Current Visit: Yes Status: Chronic (6) History of posttraumatic stress disorder (PTSD) Current Visit: Yes Status: Chronic - Initial Treatment Plan Initial Treatment Plan: Psychoeducation. Sleep hygiene. Detoxification. Citalopram 10 mg po daily. Side effects/benefits are discussed with the patient. Made aware, in particular, of potential for suicidal ideation and sexual dysfunction. Mr Hutchison agrees with careplan. Gave verbal consent to MD. Rascon.
[2018-12-01] MEDS: THIAMINE HCL 100 MG TABLET (FP) PO SCH (22:23)
[2018-12-01] MEDS: LATANOPROST 0.005% OPHTH SOLN 2.5ML BOTTLE OD SCH ×2 (23:57)
[2018-12-02] MEDS ORDERED: chlordiazePOXIDE HCL 10 MG CAPSULE PO PRN
[2018-12-02] MEDS: glyBURIDE 5 MG TABLET (UD) PO SCH ×2 (06:19→16:35)
[2018-12-02] MEDS: chlordiazePOXIDE 5 MG CAPSULE PO SCH ×3 (06:19→21:05)
[2018-12-02] MEDS ORDERED: METHADONE HCL 5 MG TABLET (FOR DETOX USE ONLY) PO ONE (10:00)
[2018-12-02] MEDS: PRENATAL VITAMINS W/ FOLIC ACID TABLET (FP) PO SCH (10:53)
[2018-12-02] MEDS: NICOTINE 14 MG/24 HOURS TOPICAL PATCH TD SCH (10:54)
[2018-12-02] MEDS: CITALOPRAM HYDROBROMIDE 10 MG TABLET (FP) PO SCH (11:09)
--- NOTE | 2018-12-02 18:34 | PN ---
[facility] CIWA - CIWA Score Nausea/Vomitin-Mild Nausea/No Vomiting Muscle Tremors: 2 Anxiety: 2 Agitation: 2 Paroxysmal Sweats: 3 Orientation: 0-Oriented Tacttile Disturbances: 0-None Auditory Disturbances: 0-None Visual Disturbances: 0-None Headache: 0-None Present CIWA-Ar Total Score: 10 BHS COWS - Scale Resting Pulse: 0= [place] 80 or Below Sweatin= Chills/Flushing Restless Observation: 1= Difficult to Sit Still Pupil Size: 0= Normal to Room Light Bone or Joint Aches: 2= Severe Diffuse Aches Runny Nose/ Eye Tearin= Runny Nose/Eyes GI Upset > 30mins: 1= Stomach Cramp Tremor Observation of Outstretched Hands: 2= Slight Tremor Visible Yawning Observation: 0= None Anxiety or Irritability: 2=Irritable/Anxious Goose Flesh Skin: 0=Smooth Skin COWS Score: 11 S Progress Note (SOAP) Subjective: Interrupted sleep, back pain /10, wants lidocaine patch Objective: 12/02/18 18:32 Last Vital Signs Temp Pulse Resp BP Pulse Ox 96.2 F L 62 18 124/63 12/02/18 17:26 12/02/18 17:26 12/02/18 17:26 12/02/18 17:26 Laboratory Tests 11/30/18 12/01/18 12/01/18 22:26 07:06 07:40 WBC 6.4 RBC 4.53 Hgb 14.2 Hct 41.3 MCV 91.3 MCH 31.3 MCHC 34.3 RDW 13.7 Plt Count 291 MPV 9.8 Sodium Potassium Chloride Carbon Dioxide Anion Gap BUN Creatinine Est GFR (CKD-EPI)AfAm Est GFR (CKD-EPI)NonAf POC Glucometer 301 317 Random Glucose Calcium Total Bilirubin AST ALT Alkaline Phosphatase Total Protein Albumin Urine Color Urine Appearance Urine pH Ur Specific [place] Urine Protein Urine Glucose (UA) Urine Ketones Urine Blood Urine Nitrite Urine Bilirubin Urine Urobilinogen Ur Leukocyte Esterase RPR Titer 12/01/18 12/01/18 12/01/18 07:40 07:40 08:20 WBC RBC Hgb Hct MCV MCH MCHC RDW Plt Count MPV Sodium 139 Potassium 4.2 Chloride 102 Carbon Dioxide 29 Anion Gap 8 BUN 11.1 Creatinine 1.0 Est GFR (CKD-EPI)AfAm 101.98 Est GFR (CKD-EPI)NonAf 87.99 POC Glucometer Random Glucose 380 H Calcium 9.1 Total Bilirubin 0.4 AST 34 ALT 59 Alkaline Phosphatase 91 Total Protein 7.0 Albumin 3.8 Urine Color Yellow Urine Appearance Clear Urine pH 6.5 Ur Specific [place] 1.038 H Urine Protein Negative Urine Glucose (UA) 3+ H Urine Ketones Negative Urine Blood Negative Urine Nitrite Negative Urine Bilirubin Negative Urine Urobilinogen 1.0 Ur Leukocyte Esterase Negative RPR Titer Nonreactive 12/01/18 12/02/18 12/02/18 17:36 06:18 16:19 WBC RBC Hgb Hct MCV MCH MCHC RDW Plt Count MPV Sodium Potassium Chloride Carbon Dioxide Anion Gap BUN Creatinine Est GFR (CKD-EPI)AfAm Est GFR (CKD-EPI)NonAf POC Glucometer 333 273 420 Random Glucose Calcium Total Bilirubin AST ALT Alkaline Phosphatase Total Protein Albumin Urine Color Urine Appearance Urine pH Ur Specific [place] Urine Protein Urine Glucose (UA) Urine Ketones Urine Blood Urine Nitrite Urine Bilirubin Urine Urobilinogen Ur Leukocyte Esterase RPR Titer Labs reviewed: elevated glucose and glycosuria due to DM Assessment: 12/02/18 18:33 Continue detox Encouraged PO water intake Lidocaine patch 5% daily for back pain DMT2 with hyperglycemia: continue diabetic regimen
[2018-12-02] MEDS: THIAMINE HCL 100 MG TABLET (FP) PO SCH (21:06)
[2018-12-02] MEDS: LATANOPROST 0.005% OPHTH SOLN 2.5ML BOTTLE OD SCH (21:06)
[2018-12-02] MEDS: INSULIN SLIDING SCALE (NOVOLOG) 1 VIAL SQ SCH (21:06)
[2018-12-02] MEDS: LIDOCAINE 5% TOPICAL PATCH TP SCH (21:13)
[2018-12-03] MEDS: glyBURIDE 5 MG TABLET (UD) PO SCH ×2 (06:05→16:47)
[2018-12-03] MEDS: LIDOCAINE PATCH REMOVAL MC SCH (06:59)
[2018-12-03] MEDS: INSULIN SLIDING SCALE (NOVOLOG) 1 VIAL SQ SCH ×4 (07:53→21:46)
[2018-12-03] MEDS ORDERED: METHADONE HCL 10 MG TABLET (FOR DETOX USE ONLY) PO ONE (10:00)
[2018-12-03] MEDS: NICOTINE 14 MG/24 HOURS TOPICAL PATCH TD SCH (10:25)
[2018-12-03] MEDS: CITALOPRAM HYDROBROMIDE 10 MG TABLET (FP) PO SCH (10:25)
[2018-12-03] MEDS: PRENATAL VITAMINS W/ FOLIC ACID TABLET (FP) PO SCH (10:25)
--- NOTE | 2018-12-03 10:43 | PN ---
[facility] CIWA - CIWA Score Nausea/Vomitin-No Nausea/No Vomiting Muscle Tremors: None Anxiety: 1-Mildly Anxious Agitation: 0-Normal Activity Paroxysmal Sweats: 1-Minimal Palms Moist Orientation: 0-Oriented Tacttile Disturbances: 0-None Auditory Disturbances: 0-None Visual Disturbances: 0-None Headache: 0-None Present CIWA-Ar Total Score: 2 BHS COWS - Scale Resting Pulse: 1= [place] 81-100 Sweatin= No chills or Flushing Restless Observation: 1= Difficult to Sit Still Pupil Size: 0= Normal to Room Light Bone or Joint Aches: 1= Mild Discomfort Runny Nose/ Eye Tearin= None GI Upset > 30mins: 0= None Tremor Observation of Outstretched Hands: 1= Tremor [place], Not Seen Yawning Observation: 0= None Anxiety or Irritability: 1=Feels Anxious/Irritable Goose Flesh Skin: 0=Smooth Skin COWS Score: 5 [facility] Progress Note (SOAP) Subjective: chronic low back pain anxiety Objective: 12/03/18 10:42 Vital Signs Temperature 97.1 F L 12/03/18 09:19 Pulse Rate 84 12/03/18 09:19 Respiratory Rate 18 12/03/18 09:19 Blood Pressure 122/70 12/03/18 09:19 O2 Sat by Pulse Oximetry (%) aaox3 ambulating no acute distress Assessment: 12/03/18 10:42 mild withdrawals Plan: continue detox lidocaine patch motrin/tylenol prn d/c in am
--- NOTE | 2018-12-03 13:26 | EKG ---
Test Reason : Blood Pressure : / mmHG Vent. Rate : 072 BPM Atrial Rate : 072 BPM P-R Int : 146 ms QRS Dur : 100 ms QT Int : 402 ms P-R-T Axes : 041 057 035 degrees QTc Int : 440 ms NORMAL SINUS RHYTHM NORMAL ECG WHEN COMPARED WITH ECG OF 04-NOV-2017 16:23, NO SIGNIFICANT CHANGE WAS FOUND Confirmed by RADHAMES TATUM MD ([id number]) on 12/03/2018 1:26:30 PM Referred By: Confirmed By:RADHAMES TATUM MD
[2018-12-03] MEDS ORDERED: INSULIN SLIDING SCALE (NOVOLOG) 1 VIAL SQ ONE ×2 (16:51→21:42)
[2018-12-03] MEDS: LIDOCAINE 5% TOPICAL PATCH TP SCH (19:45)
[2018-12-03 21:23] VITALS: TEMP 97.7
[2018-12-03] MEDS: THIAMINE HCL 100 MG TABLET (FP) PO SCH (21:44)
[2018-12-03] MEDS: LATANOPROST 0.005% OPHTH SOLN 2.5ML BOTTLE OD SCH (21:45)
[2018-12-04] MEDS ORDERED: chlordiazePOXIDE HCL 10 MG CAPSULE PO SCH (05:00)
[2018-12-04] MEDS ORDERED: chlordiazePOXIDE HCL 10 MG CAPSULE PO ONE (05:00)
[2018-12-04] MEDS ORDERED: METHADONE HCL 5 MG TABLET (FOR DETOX USE ONLY) PO ONE (06:00)
[2018-12-04] MEDS: glyBURIDE 5 MG TABLET (UD) PO SCH (06:00)
[2018-12-04] MEDS: LIDOCAINE PATCH REMOVAL MC SCH (06:01)
[2018-12-04] MEDS: INSULIN SLIDING SCALE (NOVOLOG) 1 VIAL SQ SCH (07:52)
[2018-12-04 09:55] VITALS: BP 133/73; PULSE 67
--- NOTE | 2018-12-04 10:27 | DS ---
[facility] Detox Discharge Summary Admission Date: 11/30/18 Discharge Date: 12/04/18 - History Present History: Alcohol Dependence, Cannabis Dependence, Cocaine Dependence, Opioid Dependence - Physical Exam Results Vital Signs: Vital Signs Temperature 97.7 F 12/04/18 09:55 Pulse Rate 67 12/04/18 09:55 Respiratory Rate 16 12/04/18 09:55 Blood Pressure 133/73 12/04/18 09:55 O2 Sat by Pulse Oximetry (%) Pertinent Admission Physical Exam Findings: pt - Treatment Hospital Course: Detox Protocol Followed, Detoxed Safely, Responded well, Discharged Condition Good, Rehab Referral Accepted Patient has Accepted a Rehab Referral to: pt declined rehab; referreal provided. - Medication Discharge Medications: Ambulatory Orders Citalopram Hydrobromide [Celexa -] 10 mg PO DAILY #30 tablet 04/18/17 Albuterol Sulfate Inhaler - [Ventolin HFA Inhaler -] 2 inh PO Q4H PRN #1 inhaler 11/08/17 Glyburide 5 mg PO BID #60 tablet 11/08/17 Latanoprost 0.005% Eye Drops [Xalatan 0.005% Eye Drops -] 1 drop OD HS #1 drops 11/08/17 - Diagnosis (1) Alcohol dependence with uncomplicated withdrawal Status: Chronic (2) Opioid dependence with withdrawal Status: Chronic (3) PTSD (post-traumatic stress disorder) Status: Acute (4) Anxiety Status: Chronic (5) Anxiety and depression Status: Chronic (6) Bipolar II disorder Status: Chronic (7) Cannabis dependence Status: Chronic (8) Cocaine dependence Status: Chronic Qualifiers: Substance use status: uncomplicated Qualified Code(s): F14.20 - Cocaine dependence, uncomplicated (9) Diabetes 1.5, managed as type 2 Status: Chronic (10) Diabetes mellitus treated with oral medication Status: Chronic (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, indeterminate stage Status: Chronic Qualifiers: Laterality: bilateral Qualified Code(s): H40.53X4 - Glaucoma secondary to other eye disorders, bilateral, indeterminate stage (12) History of posttraumatic stress disorder (PTSD) Status: Chronic (13) Nicotine dependence Status: Chronic Qualifiers: Nicotine product type: cigarettes Substance use status: uncomplicated Qualified Code(s): F17.210 - Nicotine dependence, cigarettes, uncomplicated (14) Obesity Status: Chronic Qualifiers: Obesity type: due to excess calories Obesity classification: adult class 1 (BMI 30 - 34.9) Serious obesity comorbidity presence: without serious comorbidity Body mass index: BMI 34.0-34.9 Qualified Code(s): E66.09 - Other obesity due to excess calories; Z68.34 - Body mass index (BMI) 34.0-34.9, adult (15) Sleep apnea with use of continuous positive airway pressure (CPAP) Status: Chronic (16) Substance induced mood disorder Status: Chronic - AMA Did Patient Leave Against Medical Advice: No
== END 2018-12-04 09:44 | disposition home or self-care (01) | DRG 773 ==
LOC: YASAS 12:16 → Y6N 22:42
PROVIDERS: ADMIT Surgery; ATTEND Surgery
PROC: HZ2ZZZZ Detoxification Services for Substance Abuse Treatment (ICD-10-PCS; principal; 2018-11-30)
DX: F11.23 Opioid dependence with withdrawal (principal); F10.230 Alcohol dependence with withdrawal, uncomplicated; F14.20 Cocaine dependence, uncomplicated; F12.20 Cannabis dependence, uncomplicated; F17.210 Nicotine dependence, cigarettes, uncomplicated; F43.10 Post-traumatic stress disorder, unspecified; F41.9 Anxiety disorder, unspecified; F31.81 Bipolar II disorder; F19.24 Other psychoactive substance dependence with psychoactive substance-induced mood disorder; J44.9 Chronic obstructive pulmonary disease, unspecified; E11.65 Type 2 diabetes mellitus with hyperglycemia; H40.53 Glaucoma secondary to other eye disorders, bilateral; G47.33 Obstructive sleep apnea (adult) (pediatric); E66.09 Other obesity due to excess calories; Z68.33 Body mass index [BMI] 33.0-33.9, adult; Z99.89 Dependence on other enabling machines and devices; Z79.84 Long term (current) use of oral hypoglycemic drugs; Z87.438 Personal history of other diseases of male genital organs; Z91.5 Personal history of self-harm
CPT/HCPCS: 36415; 80053; 81003; 82962; 85027; 86593; 93005; 93010; J0735

== ENCOUNTER 2019-09-04 10:08 | Inpatient (IN) | payer OTHER ==
--- NOTE | 2019-09-04 10:16 | BHS.RME ---
Substance Use & Tx History - Substance Use History Heroin Substance amount: 5-6 bags Frequency of use: Daily Substance route: Inhalation (ex: sniffing or snorting) Cocaine-Crack Substance amount: 1 gram Frequency of use: Daily Substance route: Smoking Date of Last Use: 09/03/19 Alcohol Substance amount: 2 six pack b eers Frequency of use: Daily Substance route: Oral Date of Last Use: 09/04/19 (after midnight) Nicotine Substance amount: 10 ciggs Frequency of use: Daily Substance route: Smoking Date of Last Use: 09/04/19 Physical/Psych/Mental Status - Behavior General Behavior: Increased activity (restlessness, agitation) Eye Contact: Normal - Cooperativeness Cooperativeness: Cooperative - Thinking Thought Processes: Tight, Logical, Goal Directed - Physical Health Problems Is patient presently having any pain?: No Does patient presently have any injuries (include location): No Does patient currently have a fever: No Is patient : No COWS - Scale Resting Pulse: 0= [place] 80 or Below Sweatin= Chills/Flushing Restless Observation: 1= Difficult to Sit Still Pupil Size: 1= Pupils >than Normal Bone or Joint Aches: 2= Severe Diffuse Aches Runny Nose/ Eye Tearin= Runny Nose/Eyes GI Upset > 30mins: 2= Nausea/Diarrhea Tremor Observation: 1= Tremor [place], Not Seen Yawning Observation: 1= 1-2x During Session Anxiety or Irritability: 2=Irritable/Anxious Goose Flesh Skin: 0=Smooth Skin COWS Score: 13 CIWA Nausea/Vomitin Muscle Tremors: 1-None Visible, but [place] Anxiety: 4-Mod. Anxious/Guarded Agitation: 4-Moderately Restless Paroxysmal Sweats: 3 Orientation: 0-Oriented Tacttile Disturbances: 0-None Auditory Disturbances: 0-None Visual Disturbances: 0-None Headache: 0-None Present CIWA-Ar Total Score: 15
--- NOTE | 2019-09-04 10:42 | HP ---
COWS - Scale Resting Pulse: 0= [place] 80 or Below Sweatin= Chills/Flushing Restless Observation: 1= Difficult to Sit Still Pupil Size: 1= Pupils >than Normal Bone or Joint Aches: 2= Severe Diffuse Aches Runny Nose/ Eye Tearin= Runny Nose/Eyes GI Upset > 30mins: 2= Nausea/Diarrhea Tremor Observation: 1= Tremor [place], Not Seen Yawning Observation: 1= 1-2x During Session Anxiety or Irritability: 2=Irritable/Anxious Goose Flesh Skin: 0=Smooth Skin COWS Score: 13 CIWA Score Nausea/Vomitin Muscle Tremors: 1-None Visible, but [place] Anxiety: 4-Mod. Anxious/Guarded Agitation: 4-Moderately Restless Paroxysmal Sweats: 3 Orientation: 0-Oriented Tacttile Disturbances: 0-None Auditory Disturbances: 0-None Visual Disturbances: 0-None Headache: 0-None Present CIWA-Ar Total Score: 15 - Admission Criteria OASAS Guidelines: Admission for Medically Managed Detox: Requires at least one of the followin. CIWA greater than 12 2. Seizures within the past 24 hours 3. Delirium tremens within the past 24 hours 4. Hallucinations within the past 24 hours 5. Acute intervention needed for co occurring medical disorder 6. Acute intervention needed for co occurring psychiatric disorder 7. Severe withdrawal that cannot be handled at a lower level of care (continued vomiting, continued diarrhea, abnormal vital signs) requiring intravenous medication and/or fluids 8. Admitting History and Physical - Admission Chief Complaint: Mr. Hutchison is a 49 yo gentleman who presents to [facility] requesting detox from alcohol and heroin use. History of Present Illness: Mr. Hutchison is a 49 yo gentleman who presents to [facility] requesting detox from alcohol and heroin use. He was last here for detox between 11/30 and 12/04/2019. PMH: DM, sleep apnea, COPD, hypoonadism, right eye glaucome, aHLD PSH: fracture left toe Psych: bipolar, Celexa last taken 3 mos ago SOC: homeless, no senior living, on the streets Legal: none Substance Use History Heroin Substance amount: 5-6 bags Frequency of use: Daily Substance route: Inhalation (ex: sniffing or snorting) First use ag 45y OD x1, was 4 weeks ago. 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 Nicotine Substance amount: 10 ciggs Frequency of use: Daily Substance route: Smoking Date of Last Use: 09/04/19 Began: age 11y [place] [employer] checked: no rxs History Source: Patient Limitations to Obtaining History: No Limitations - Smoking History Smoking history: Current every day smoker Have you smoked in the past 12 months: Yes Aproximately how many cigarettes per day: 10 - Alcohol/Substance Use Hx Alcohol Use: Yes Admission ROS BHS - HPI Allergies/Adverse Reactions: Allergies Allergy/AdvReac Type Severity Reaction Status Date / Time No Known Allergies Allergy Verified 09/04/19 10:44 Exam Limitations: No Limitations - Ebola screening Have you traveled outside of the country in the last 21 days: No Have you been sick,other than usual withdrawal symptoms: No Do you have a fever: No - Review of Systems Constitutional: Changes in sleep (unable to stay asleep), Unintentional Wgt. Loss (15 lb in 6 mos) EENT: reports: Nose Congestion Respiratory: reports: Cough (he relates to smoking) Cardiac: reports: No Symptoms Reported GI: reports: No Symptoms Reported : reports: No Symptoms Reported Musculoskeletal: reports: Back Pain (chronic, non radiating), Muscle Pain (left thigh with occaisional radiation to the left forefoot) Integumentary: reports: No Symptoms Reported (noncompliant with medication for diabetes for several days) Neuro: reports: Tremors (withdrawal related) Endocrine: reports: Other Hematology: reports: No Symptoms Reported Psychiatric: reports: Anxious Patient History - Patient Medical History Hx Anemia: No Hx Asthma: No Hx Chronic Obstructive Pulmonary Disease (COPD): Yes (on inhalers) Hx Cancer: No Hx Cardiac Disorders: No Hx Congestive Heart Failure: No Hx Hypertension: No Hx Hypercholesterolemia: No Hx Pacemaker: No HX Cerebrovascular Accident: No Hx Seizures: No Hx Dementia: No Hx Diabetes: Yes (oral meds) Hx Gastrointestinal Disorders: No Hx Liver Disease: No Hx Genitourinary Disorders: No Hx Sexually Transmitted Disorders: Yes (GONORRHEA AT AGE 15) Hx Renal Disease (ESRD): No Hx Thyroid Disease: No Hx Human Immunodeficiency Virus (HIV): No Hx Hepatitis C: No Hx Depression: Yes Hx Suicide Attempt: Yes (TRIED TO JUMP IN FRONT OF A TRAIN) Hx Bipolar Disorder: Yes Hx Schizophrenia: No - Patient Surgical History Past Surgical History: Yes Hx Neurologic Surgery: No Hx Cataract Extraction: No Hx Cardiac Surgery: No Hx Lung Surgery: No Hx Breast Surgery: No Hx Breast Biopsy: No Hx Abdominal Surgery: No Hx Appendectomy: No Hx Cholecystectomy: No Hx Genitourinary Surgery: No Hx Orthopedic Surgery: Yes (R hand sx 2007) Anesthesia Reaction: No - PPD History Date: 12/02/18 - Smoking Cessation Smoking history: Current every day smoker Have you smoked in the past 12 months: Yes Aproximately how many cigarettes per day: 10 Hx Chewing Tobacco Use: No Initiated information on smoking cessation: Yes 'Breaking Loose' booklet given: 09/04/19 - Substances abused Alcohol Substance route: Oral Frequency: 3-6 times per week Amount used: 12 beer Age of first use: 7 Date of last use: 09/04/19 Crack Substance route: Smoking Frequency: Daily Amount used: 2 grams Age of first use: 12 Date of last use: 09/03/19 Heroin Substance route: Inhalation Amount used: 6 bags Age of first use: 44 Date of last use: 09/03/19 Admission Physical Exam S - Physical General Appearance: Yes: Nourished, Anxious HEENTM: Yes: EOMI, Hearing grossly Normal, Normocephalic Respiratory: Yes: Lungs Clear, Normal Breath Sounds, No Accessory Muscle Use Neck: Yes: Within Normal Limits, Supple Breast: Yes: Breast Exam Deferred Cardiology: Yes: Regular Rhythm, Regular Rate, S1, S2 Abdominal: Yes: Normal Bowel Sounds, Non Tender, Flat, Soft Genitourinary: Yes: Other (deferred) Back: Yes: Normal Inspection Musculoskeletal: Yes: Gait Steady, Other (normal exam of left thigh) Extremities: Yes: Normal Capillary Refill Neurological: Yes: Alert, Normal Mood/Affect, Normal Response Integumentary: Yes: Normal Color, Dry, Warm - Diagnostic (1) Alcohol dependence with uncomplicated withdrawal Current Visit: Yes Status: Acute (2) Bipolar II disorder Current Visit: Yes Status: Chronic (3) Cocaine dependence Current Visit: Yes Status: Acute Qualifiers: Substance use status: uncomplicated Qualified Code(s): F14.20 - Cocaine dependence, uncomplicated (4) Diabetes 1.5, managed as type 2 Current Visit: Yes Status: Chronic (5) Nicotine dependence Current Visit: No Status: Chronic Qualifiers: Nicotine product type: cigarettes Substance use status: uncomplicated Qualified Code(s): F17.210 - Nicotine dependence, cigarettes, uncomplicated (6) Opioid dependence with withdrawal Current Visit: Yes Status: Acute Cleared for Admission S - Detox or Rehab [facility] Level of Care: Medically Managed Detox Regimen/Protocol: Methadone/Librium Breathalyzer - Breathalyzer Breathalyzer: 0 Urine Drug Screen - Test Device Lot number: [id number] Expiration date: 11/03/20 - Control Is test valid?: Yes - Results Drug screen NEGATIVE: No Urine drug screen results: ABRAHAN-Cocaine, FEN-Fentanyl, MOP-Opiates Inpatient Rehab Admission - Rehab Decision to Admit Inpatient rehab admission?: No
[2019-09-04] MEDS ORDERED: MAGNESIUM CITRATE 300 ML BOTTLE PO PRN (10:49)
[2019-09-04] MEDS ORDERED: METHOCARBAMOL 500 MG TABLET PO PRN (10:49)
[2019-09-04] MEDS ORDERED: MAGNESIUM HYDROX 2400MG/30ML ORAL SUSPENSION 30 ML CUP PO PRN (10:49)
[2019-09-04] MEDS ORDERED: chlordiazePOXIDE HCL 25 MG CAPSULE PO PRN (10:49)
[2019-09-04] MEDS ORDERED: cloNIDine HCL 0.1 MG TABLET PO PRN (10:49)
[2019-09-04] MEDS ORDERED: NICOTINE POLACRILEX 2 MG GUM BUC PRN (10:49)
[2019-09-04] MEDS ORDERED: MENTHOL/PHENOL 1 EACH UD MM PRN (10:49)
[2019-09-04] MEDS ORDERED: METHADONE HCL 10 MG TABLET (FOR DETOX USE ONLY) PO ONE (10:49)
[2019-09-04] MEDS ORDERED: ONDANSETRON *ODT* 4 MG TABLET SL PRN (10:49)
[2019-09-04] MEDS ORDERED: ACETAMINOPHEN 325 MG TABLET (FP) PO PRN ×2 (10:49)
[2019-09-04] MEDS ORDERED: MAG HYDROX/AL HYDROX/SIMETH 30 ML UNIT-DOSE CUP PO PRN (10:49)
[2019-09-04] MEDS ORDERED: BISMUTH SUBSALICYLATE 524 MG/30 ML UD PO PRN (10:49)
[2019-09-04] MEDS ORDERED: ALBUTEROL SO4 HFA INHALER IH PRN (10:53)
[2019-09-04 10:59] VITALS: BMI 31.4
[2019-09-04] MEDS ORDERED: INSULIN REGULAR HUMAN 100 UNITS/ML *VIAL SQ ONE ×2 (11:10→11:49)
--- NOTE | 2019-09-04 11:46 | EKG ---
Test Reason : Blood Pressure : / mmHG Vent. Rate : 065 BPM Atrial Rate : 065 BPM P-R Int : 144 ms QRS Dur : 102 ms QT Int : 404 ms P-R-T Axes : 049 053 022 degrees QTc Int : 420 ms NORMAL SINUS RHYTHM NORMAL ECG WHEN COMPARED WITH ECG OF 30-NOV-2018 22:51, NO SIGNIFICANT CHANGE WAS FOUND Confirmed by Gerard Tamayo MD ([id number]) on 09/04/2019 11:46:21 AM Referred By: Confirmed By:Gerard Tamayo MD
[2019-09-04] MEDS ORDERED: INSULIN (NOVOLOG) ASPART 100 UNITS/ML 10ML VIAL SQ ONE (12:10)
[2019-09-04] MEDS: NICOTINE 14 MG/24 HOURS TOPICAL PATCH TD SCH (12:10)
[2019-09-04] MEDS: PRENATAL VITAMINS W/ FOLIC ACID TABLET (FP) PO SCH (12:11)
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
[2019-09-04] MEDS: hydrOXYzine PAMOATE 25 MG CAPSULE (FP) PO SCH ×3 (13:57→21:31)
[2019-09-04 15:41] LABS: HEMATOCRIT 39.9 % (35.4-49); HEMOGLOBIN 13.6 GM/dL (11.7-16.9); MCH 31.8 pg (25.7-33.7); MEAN CELL VOLUME 93.5 fl (80-96); MEAN PLT VOLUME 9.8 fl (7.5-11.1); PLATELET COUNT 301 K/MM3 (134-434); RBC 4.27 M/mm3 (4.00-5.60); RDW 13.7 % (11.9-15.9); WHITE BLOOD COUNT 7.9 K/mm3 (4.0-10.0)
[2019-09-04 15:53] LABS: ALBUMIN 3.8 g/dl (3.4-5.0); BILIRUBIN,TOTAL 0.9 mg/dL (0.2-1); BLOOD UREA NITROGEN 13.3 mg/dL (7-18); POTASSIUM 4.3 mmol/L (3.5-5.1); TOT PROT 7.1 g/dl (6.4-8.2)
[2019-09-04] MEDS ORDERED: INSULIN (NOVOLOG) ASPART 100 UNITS/ML 10ML VIAL ONE (16:37)
[2019-09-04] MEDS: INSULIN SLIDING SCALE (NOVOLOG) 1 VIAL SQ SCH ×2 (17:25→21:30)
[2019-09-04] MEDS: chlordiazePOXIDE HCL 25 MG CAPSULE PO SCH ×2 (17:50→22:10)
[2019-09-04] MEDS: glyBURIDE 5 MG TABLET PO SCH (17:58)
[2019-09-04] MEDS: MELATONIN 5 MG TABLETS PO SCH (21:30)
[2019-09-04] MEDS: THIAMINE HCL 100 MG TABLET (FP) PO SCH (21:30)
[2019-09-04] MEDS: LATANOPROST 0.005% OPHTH SOLN 2.5ML BOTTLE OD SCH (21:32)
[2019-09-05] MEDS: chlordiazePOXIDE HCL 25 MG CAPSULE PO SCH ×4 (07:26→22:41)
[2019-09-05] MEDS: hydrOXYzine PAMOATE 25 MG CAPSULE (FP) PO SCH ×5 (07:27→22:41)
[2019-09-05] MEDS: glyBURIDE 5 MG TABLET PO SCH ×2 (07:34→17:34)
[2019-09-05] MEDS: INSULIN SLIDING SCALE (NOVOLOG) 1 VIAL SQ SCH ×4 (07:35→22:43)
[2019-09-05] MEDS ORDERED: METHADONE HCL 5 MG TABLET (FOR DETOX USE ONLY) ONE (08:26)
[2019-09-05] MEDS ORDERED: METHADONE HCL 10 MG TABLET (FOR DETOX USE ONLY) ONE (08:26)
[2019-09-05] MEDS ORDERED: METHADONE (DETOX) 20 MG, METHADONE (DETOX) 5 MG PO ONE (10:00)
[2019-09-05] MEDS: PRENATAL VITAMINS W/ FOLIC ACID TABLET (FP) PO SCH (10:33)
[2019-09-05] MEDS: CITALOPRAM HYDROBROMIDE 10 MG TABLET PO SCH (10:33)
[2019-09-05] MEDS: NICOTINE 14 MG/24 HOURS TOPICAL PATCH TD SCH (10:33)
--- NOTE | 2019-09-05 11:32 | PN ---
[facility] CIWA - CIWA Score Nausea/Vomitin-No Nausea/No Vomiting Muscle Tremors: 2 Anxiety: 4-Mod. Anxious/Guarded Agitation: 0-Normal Activity Paroxysmal Sweats: No Perspiration Orientation: 0-Oriented Tacttile Disturbances: 0-None Auditory Disturbances: 0-None Visual Disturbances: 0-None Headache: 0-None Present CIWA-Ar Total Score: 6 S COWS - Scale Resting Pulse: 0= [place] 80 or Below Sweatin= Chills/Flushing Restless Observation: 0= Sits Still Pupil Size: 0= Normal to Room Light Bone or Joint Aches: 0= None Runny Nose/ Eye Tearin= None GI Upset > 30mins: 0= None Tremor Observation of Outstretched Hands: 1= Tremor [place], Not Seen Yawning Observation: 0= None Anxiety or Irritability: 1=Feels Anxious/Irritable Goose Flesh Skin: 0=Smooth Skin COWS Score: 3 BHS Progress Note (SOAP) Subjective: Pt is a 49 y/o male admitted to detox for heroin and alcohol withdrawal sx. Pt has a hx of DM and BS now of 267 mg/dl and nurse reported that the patient refused coverge at this time. Pt reports Fatigue and slight anxiety stating the 'medication is helping me with the symptoms. i feel better right now". Objective: 09/05/19 11:30 Vital Signs - 8 hr 09/05/19 06:44 Temperature 97.8 F Pulse Rate 59 L Respiratory 18 Rate Blood Pressure 115/70 O2 Sat by Pulse 95 Oximetry (%) Laboratory Tests 09/04/19 09/04/19 09/04/19 10:40 10:40 10:40 WBC 7.9 RBC 4.27 Hgb 13.6 Hct 39.9 MCV 93.5 MCH 31.8 MCHC 34.0 RDW 13.7 Plt Count 301 MPV 9.8 Sodium 135 L Potassium 4.3 Chloride 95 L Carbon Dioxide 32 Anion Gap 8 BUN 13.3 Creatinine 1.0 Est GFR (CKD-EPI)AfAm 101.26 Est GFR (CKD-EPI)NonAf 87.37 POC Glucometer Random Glucose 352 H Calcium 10.0 Total Bilirubin 0.9 AST 18 ALT 21 Alkaline Phosphatase 74 Total Protein 7.1 Albumin 3.8 Syphilis Serology Non-reactive HIV Ag/Ab Combo Qual 09/04/19 09/04/19 09/04/19 10:40 11:06 16:35 WBC RBC Hgb Hct MCV MCH MCHC RDW Plt Count MPV Sodium Potassium Chloride Carbon Dioxide Anion Gap BUN Creatinine Est GFR (CKD-EPI)AfAm Est GFR (CKD-EPI)NonAf POC Glucometer 417 333 Random Glucose Calcium Total Bilirubin AST ALT Alkaline Phosphatase Total Protein Albumin Syphilis Serology HIV Ag/Ab Combo Qual Negative 09/04/19 09/05/19 09/05/19 21:29 07:30 11:09 WBC RBC Hgb Hct MCV MCH MCHC RDW Plt Count MPV Sodium Potassium Chloride Carbon Dioxide Anion Gap BUN Creatinine Est GFR (CKD-EPI)AfAm Est GFR (CKD-EPI)NonAf POC Glucometer 403 180 267 Random Glucose Calcium Total Bilirubin AST ALT Alkaline Phosphatase Total Protein Albumin Syphilis Serology HIV Ag/Ab Combo Qual labs noted coid result pending Alert o x 3 nad lying in bed CPAP machine in place on patient. No Resp Distress. Assessment: 09/05/19 11:31 withdraeal sx Plan: continue detox increase po fluids maintain safety D/w pt re:refusal of sliding scale and pt is agreeable to take it. Novolog 6 units sc x 1 now ordered.
[2019-09-05] MEDS ORDERED: INSULIN (NOVOLOG) ASPART 100 UNITS/ML 10ML VIAL SQ ONE (12:07)
[2019-09-05] MEDS: SUVOREXANT 10 MG TABLET PO PRN (22:41)
[2019-09-05] MEDS: MELATONIN 5 MG TABLETS PO SCH (22:41)
[2019-09-05] MEDS: THIAMINE HCL 100 MG TABLET (FP) PO SCH (22:41)
[2019-09-05] MEDS: LATANOPROST 0.005% OPHTH SOLN 2.5ML BOTTLE OD SCH (22:54)
[2019-09-06] MEDS: hydrOXYzine PAMOATE 25 MG CAPSULE (FP) PO SCH ×5 (07:03→22:32)
[2019-09-06] MEDS: glyBURIDE 5 MG TABLET PO SCH ×2 (07:03→16:56)
[2019-09-06] MEDS: chlordiazePOXIDE HCL 25 MG CAPSULE PO SCH ×4 (07:03→22:34)
[2019-09-06] MEDS ORDERED: INSULIN (NOVOLOG) ASPART 100 UNITS/ML 10ML VIAL ONE ×2 (07:06→11:14)
[2019-09-06] MEDS: INSULIN SLIDING SCALE (NOVOLOG) 1 VIAL SQ SCH ×4 (07:07→22:34)
[2019-09-06] MEDS ORDERED: METHADONE HCL 10 MG TABLET (FOR DETOX USE ONLY) PO ONE (10:00)
[2019-09-06] MEDS: NICOTINE 14 MG/24 HOURS TOPICAL PATCH TD SCH (10:13)
[2019-09-06] MEDS: CITALOPRAM HYDROBROMIDE 10 MG TABLET PO SCH (10:13)
[2019-09-06] MEDS: PRENATAL VITAMINS W/ FOLIC ACID TABLET (FP) PO SCH (10:13)
--- NOTE | 2019-09-06 15:00 | PN ---
[facility] CIWA - CIWA Score Nausea/Vomitin-No Nausea/No Vomiting Muscle Tremors: 1-None Visible, but [place] Anxiety: 2 Agitation: 2 Paroxysmal Sweats: No Perspiration Orientation: 0-Oriented Tacttile Disturbances: 0-None Auditory Disturbances: 0-None Visual Disturbances: 0-None Headache: 0-None Present CIWA-Ar Total Score: 5 S COWS - Scale Resting Pulse: 0= [place] 80 or Below Sweatin= No chills or Flushing Restless Observation: 0= Sits Still Pupil Size: 0= Normal to Room Light Bone or Joint Aches: 4=Acute Joint/Muscle Pain Runny Nose/ Eye Tearin= None GI Upset > 30mins: 0= None Tremor Observation of Outstretched Hands: 0= None Yawning Observation: 0= None Anxiety or Irritability: 0= None Goose Flesh Skin: 0=Smooth Skin COWS Score: 4 S Progress Note (SOAP) Subjective: Pt reports- body aches fatigue on CPAP machine in place good appetite Objective: 09/06/19 15:03 Vital Signs - 8 hr 09/06/19 08:16 Temperature 97.9 F Pulse Rate 75 Respiratory 20 Rate Blood Pressure 114/66 Laboratory Tests 09/04/19 09/04/19 09/04/19 10:40 10:40 10:40 WBC 7.9 RBC 4.27 Hgb 13.6 Hct 39.9 MCV 93.5 MCH 31.8 MCHC 34.0 RDW 13.7 Plt Count 301 MPV 9.8 Sodium 135 L Potassium 4.3 Chloride 95 L Carbon Dioxide 32 Anion Gap 8 BUN 13.3 Creatinine 1.0 Est GFR (CKD-EPI)AfAm 101.26 Est GFR (CKD-EPI)NonAf 87.37 POC Glucometer Random Glucose 352 H Calcium 10.0 Total Bilirubin 0.9 AST 18 ALT 21 Alkaline Phosphatase 74 Total Protein 7.1 Albumin 3.8 Syphilis Serology Non-reactive COVID-19 ([facility]) HIV Ag/Ab Combo Qual 09/04/19 09/04/19 09/04/19 10:40 11:06 12:30 WBC RBC Hgb Hct MCV MCH MCHC RDW Plt Count MPV Sodium Potassium Chloride Carbon Dioxide Anion Gap BUN Creatinine Est GFR (CKD-EPI)AfAm Est GFR (CKD-EPI)NonAf POC Glucometer 417 Random Glucose Calcium Total Bilirubin AST ALT Alkaline Phosphatase Total Protein Albumin Syphilis Serology COVID-19 ([facility]) Not detected HIV Ag/Ab Combo Qual Negative 09/04/19 09/04/19 09/05/19 16:35 21:29 07:30 WBC RBC Hgb Hct MCV MCH MCHC RDW Plt Count MPV Sodium Potassium Chloride Carbon Dioxide Anion Gap BUN Creatinine Est GFR (CKD-EPI)AfAm Est GFR (CKD-EPI)NonAf POC Glucometer 333 403 180 Random Glucose Calcium Total Bilirubin AST ALT Alkaline Phosphatase Total Protein Albumin Syphilis Serology COVID-19 ([facility]) HIV Ag/Ab Combo Qual 09/05/19 09/05/19 09/05/19 11:09 16:53 20:22 WBC RBC Hgb Hct MCV MCH MCHC RDW Plt Count MPV Sodium Potassium Chloride Carbon Dioxide Anion Gap BUN Creatinine Est GFR (CKD-EPI)AfAm Est GFR (CKD-EPI)NonAf POC Glucometer 267 221 356 Random Glucose Calcium Total Bilirubin AST ALT Alkaline Phosphatase Total Protein Albumin Syphilis Serology COVID-19 ([facility]) HIV Ag/Ab Combo Qual 09/06/19 09/06/19 07:02 11:12 WBC RBC Hgb Hct MCV MCH MCHC RDW Plt Count MPV Sodium Potassium Chloride Carbon Dioxide Anion Gap BUN Creatinine Est GFR (CKD-EPI)AfAm Est GFR (CKD-EPI)NonAf POC Glucometer 224 299 Random Glucose Calcium Total Bilirubin AST ALT Alkaline Phosphatase Total Protein Albumin Syphilis Serology COVID-19 ([facility]) HIV Ag/Ab Combo Qual covid-19 not detected Alert o x 3 nad Assessment: 09/06/19 15:04 mild withdrawal sx Plan: cont detox increase po fluids maintain safety
[2019-09-06] MEDS: THIAMINE HCL 100 MG TABLET (FP) PO SCH (22:32)
[2019-09-06] MEDS: MELATONIN 5 MG TABLETS PO SCH (22:32)
[2019-09-06] MEDS: SUVOREXANT 10 MG TABLET PO PRN (22:32)
[2019-09-06] MEDS: LATANOPROST 0.005% OPHTH SOLN 2.5ML BOTTLE OD SCH (22:34)
[2019-09-07] MEDS ORDERED: chlordiazePOXIDE HCL 10 MG CAPSULE PO PRN
[2019-09-07] MEDS: glyBURIDE 5 MG TABLET PO SCH ×2 (06:35→16:38)
[2019-09-07] MEDS: hydrOXYzine PAMOATE 25 MG CAPSULE (FP) PO SCH ×5 (06:35→22:20)
[2019-09-07] MEDS: chlordiazePOXIDE HCL 10 MG CAPSULE PO SCH ×4 (06:35→22:20)
[2019-09-07] MEDS ORDERED: INSULIN (NOVOLOG) ASPART 100 UNITS/ML 10ML VIAL ONE ×4 (06:38→22:24)
[2019-09-07] MEDS: INSULIN SLIDING SCALE (NOVOLOG) 1 VIAL SQ SCH ×4 (06:38→22:21)
[2019-09-07] MEDS ORDERED: METHADONE HCL 5 MG TABLET (FOR DETOX USE ONLY) ONE (09:04)
[2019-09-07] MEDS ORDERED: METHADONE HCL 10 MG TABLET (FOR DETOX USE ONLY) ONE (09:04)
--- NOTE | 2019-09-07 09:43 | PN ---
[facility] CIWA - CIWA Score Nausea/Vomitin-No Nausea/No Vomiting Muscle Tremors: None Anxiety: 2 Agitation: 0-Normal Activity Paroxysmal Sweats: 2 Orientation: 0-Oriented Tacttile Disturbances: 0-None Auditory Disturbances: 0-None Visual Disturbances: 0-None Headache: 1-Very Mild CIWA-Ar Total Score: 5 BHS COWS - Scale Resting Pulse: 0= [place] 80 or Below Sweatin= Chills/Flushing Restless Observation: 1= Difficult to Sit Still Pupil Size: 0= Normal to Room Light Bone or Joint Aches: 1= Mild Discomfort Runny Nose/ Eye Tearin= None GI Upset > 30mins: 0= None Tremor Observation of Outstretched Hands: 0= None Yawning Observation: 1= 1-2x During Session Anxiety or Irritability: 1=Feels Anxious/Irritable Goose Flesh Skin: 0=Smooth Skin COWS Score: 5 S Progress Note (SOAP) Subjective: c/o mild withdrawal symptoms. Objective: 09/07/19 09:41 Vital Signs 09/07/19 09/07/19 06:13 08:52 Temperature 97.6 F 97.7 F Pulse Rate 69 73 Respiratory 18 18 Rate Blood Pressure 124/77 126/71 Laboratory Last Values WBC 7.9 K/mm3 (4.0-10.0) 09/04/19 10:40 RBC 4.27 M/mm3 (4.00-5.60) 09/04/19 10:40 Hgb 13.6 GM/dL (11.7-16.9) 09/04/19 10:40 Hct 39.9 % (35.4-49) 09/04/19 10:40 MCV 93.5 fl (80-96) 09/04/19 10:40 MCH 31.8 pg (25.7-33.7) 09/04/19 10:40 MCHC 34.0 g/dl (32.0-35.9) 09/04/19 10:40 RDW 13.7 % (11.9-15.9) 09/04/19 10:40 Plt Count 301 K/MM3 (134-434) 09/04/19 10:40 MPV 9.8 fl (7.5-11.1) 09/04/19 10:40 Sodium 135 mmol/L (136-145) L 09/04/19 10:40 Potassium 4.3 mmol/L (3.5-5.1) 09/04/19 10:40 Chloride 95 mmol/L (98-107) L 09/04/19 10:40 Carbon Dioxide 32 mmol/L (21-32) 09/04/19 10:40 Anion Gap 8 MMOL/L (8-16) 09/04/19 10:40 BUN 13.3 mg/dL (7-18) 09/04/19 10:40 Creatinine 1.0 mg/dL (0.55-1.3) 09/04/19 10:40 Est GFR (CKD-EPI)AfAm 101.26 09/04/19 10:40 Est GFR (CKD-EPI)NonAf 87.37 09/04/19 10:40 POC Glucometer 269 UNITS (80-120) 09/07/19 06:34 Random Glucose 352 mg/dL (74-106) H 09/04/19 10:40 Calcium 10.0 mg/dL (8.5-10.1) 09/04/19 10:40 Total Bilirubin 0.9 mg/dL (0.2-1) 09/04/19 10:40 AST 18 U/L (15-37) 09/04/19 10:40 ALT 21 U/L (13-61) 09/04/19 10:40 Alkaline Phosphatase 74 U/L (45-117) 09/04/19 10:40 Total Protein 7.1 g/dl (6.4-8.2) 09/04/19 10:40 Albumin 3.8 g/dl (3.4-5.0) 09/04/19 10:40 Syphilis Serology Non-reactive (NONREACTIVE) 09/04/19 10:40 COVID-19 ([facility]) Not detected (Not Detected) 09/04/19 12:30 HIV Ag/Ab Combo Qual Negative (NEGATIVE) 09/04/19 10:40 Labs noted. Assessment: 09/07/19 09:42 AOX3, in no acute respiratory distress. Full ROM, ambulating in the unit. Mild Withdrawal symptoms. Plan: continue detox.
[2019-09-07] MEDS ORDERED: METHADONE (DETOX) 10 MG, METHADONE (DETOX) 5 MG PO ONE (10:00)
[2019-09-07] MEDS: PRENATAL VITAMINS W/ FOLIC ACID TABLET (FP) PO SCH (10:22)
[2019-09-07] MEDS: NICOTINE 14 MG/24 HOURS TOPICAL PATCH TD SCH (10:23)
[2019-09-07] MEDS: CITALOPRAM HYDROBROMIDE 10 MG TABLET PO SCH (10:23)
[2019-09-07] MEDS: MELATONIN 5 MG TABLETS PO SCH (22:20)
[2019-09-07] MEDS: THIAMINE HCL 100 MG TABLET (FP) PO SCH (22:20)
[2019-09-07] MEDS: LATANOPROST 0.005% OPHTH SOLN 2.5ML BOTTLE OD SCH (22:20)
[2019-09-08] MEDS: chlordiazePOXIDE HCL 10 MG CAPSULE PO SCH ×2 (06:31→17:20)
[2019-09-08] MEDS: hydrOXYzine PAMOATE 25 MG CAPSULE (FP) PO SCH ×5 (06:31→21:09)
[2019-09-08] MEDS: glyBURIDE 5 MG TABLET PO SCH ×2 (06:31→16:20)
[2019-09-08] MEDS ORDERED: INSULIN (NOVOLOG) ASPART 100 UNITS/ML 10ML VIAL ONE ×4 (06:34→22:16)
[2019-09-08] MEDS: INSULIN SLIDING SCALE (NOVOLOG) 1 VIAL SQ SCH ×4 (06:42→21:09)
[2019-09-08] MEDS ORDERED: METHADONE HCL 10 MG TABLET (FOR DETOX USE ONLY) PO ONE (10:00)
[2019-09-08] MEDS: NICOTINE 14 MG/24 HOURS TOPICAL PATCH TD SCH (10:19)
[2019-09-08] MEDS: PRENATAL VITAMINS W/ FOLIC ACID TABLET (FP) PO SCH (10:19)
[2019-09-08] MEDS: CITALOPRAM HYDROBROMIDE 10 MG TABLET PO SCH (10:20)
[2019-09-08] MEDS ORDERED: MAGNESIUM HYDROX 2400MG/30ML ORAL SUSPENSION 30 ML CUP PO ONE (13:41)
--- NOTE | 2019-09-08 13:48 | PN ---
[facility] CIWA - CIWA Score Nausea/Vomitin-No Nausea/No Vomiting Muscle Tremors: 1-None Visible, but [place] Anxiety: 1-Mildly Anxious Agitation: 0-Normal Activity Paroxysmal Sweats: No Perspiration Orientation: 0-Oriented Tacttile Disturbances: 0-None Auditory Disturbances: 0-None Visual Disturbances: 1-Very Mild Sensitivity Headache: 0-None Present CIWA-Ar Total Score: 3 S COWS - Scale Resting Pulse: 0= [place] 80 or Below Sweatin= No chills or Flushing Restless Observation: 0= Sits Still Pupil Size: 0= Normal to Room Light Bone or Joint Aches: 1= Mild Discomfort Runny Nose/ Eye Tearin= None GI Upset > 30mins: 0= None Tremor Observation of Outstretched Hands: 1= Tremor [place], Not Seen Yawning Observation: 0= None Anxiety or Irritability: 1=Feels Anxious/Irritable Goose Flesh Skin: 0=Smooth Skin COWS Score: 3 S Progress Note (SOAP) Subjective: 49 years old male admitted on 09/04/19 for alcohol and opiate withdrawal sx management treating with librium and methadone detox regiment feeling better today less tremor mild restlessness reports small hard stool abdomen soft round obese no nausea bowel sound x 4 denies pain no mass palpated MOM 30 ml po x 1 Objective: 09/08/19 13:44 Vital Signs - 24 hr 09/07/19 09/07/19 09/08/19 16:44 20:27 03:30 Temperature 97.3 F L 98.2 F Pulse Rate 74 78 Respiratory 16 19 18 Rate Blood Pressure 112/64 127/68 O2 Sat by Pulse 98 Oximetry (%) 09/08/19 09/08/19 09/08/19 06:17 08:31 12:36 Temperature 97.5 F L 97.7 F 97.1 F L Pulse Rate 67 71 73 Respiratory 18 18 18 Rate Blood Pressure 118/81 123/71 117/73 O2 Sat by Pulse 96 Oximetry (%) Laboratory Tests 09/04/19 09/04/19 09/04/19 10:40 10:40 10:40 WBC 7.9 RBC 4.27 Hgb 13.6 Hct 39.9 MCV 93.5 MCH 31.8 MCHC 34.0 RDW 13.7 Plt Count 301 MPV 9.8 Sodium 135 L Potassium 4.3 Chloride 95 L Carbon Dioxide 32 Anion Gap 8 BUN 13.3 Creatinine 1.0 Est GFR (CKD-EPI)AfAm 101.26 Est GFR (CKD-EPI)NonAf 87.37 POC Glucometer Random Glucose 352 H Calcium 10.0 Total Bilirubin 0.9 AST 18 ALT 21 Alkaline Phosphatase 74 Total Protein 7.1 Albumin 3.8 Syphilis Serology Non-reactive COVID-19 ([facility]) HIV Ag/Ab Combo Qual 09/04/19 09/04/19 09/04/19 10:40 11:06 12:30 WBC RBC Hgb Hct MCV MCH MCHC RDW Plt Count MPV Sodium Potassium Chloride Carbon Dioxide Anion Gap BUN Creatinine Est GFR (CKD-EPI)AfAm Est GFR (CKD-EPI)NonAf POC Glucometer 417 Random Glucose Calcium Total Bilirubin AST ALT Alkaline Phosphatase Total Protein Albumin Syphilis Serology COVID-19 ([facility]) Not detected HIV Ag/Ab Combo Qual Negative 09/04/19 09/04/19 09/05/19 16:35 21:29 07:30 WBC RBC Hgb Hct MCV MCH MCHC RDW Plt Count MPV Sodium Potassium Chloride Carbon Dioxide Anion Gap BUN Creatinine Est GFR (CKD-EPI)AfAm Est GFR (CKD-EPI)NonAf POC Glucometer 333 403 180 Random Glucose Calcium Total Bilirubin AST ALT Alkaline Phosphatase Total Protein Albumin Syphilis Serology COVID-19 ([facility]) HIV Ag/Ab Combo Qual 09/05/19 09/05/19 09/05/19 11:09 16:53 20:22 WBC RBC Hgb Hct MCV MCH MCHC RDW Plt Count MPV Sodium Potassium Chloride Carbon Dioxide Anion Gap BUN Creatinine Est GFR (CKD-EPI)AfAm Est GFR (CKD-EPI)NonAf POC Glucometer 267 221 356 Random Glucose Calcium Total Bilirubin AST ALT Alkaline Phosphatase Total Protein Albumin Syphilis Serology COVID-19 ([facility]) HIV Ag/Ab Combo Qual 09/06/19 09/06/19 09/06/19 07:02 11:12 16:54 WBC RBC Hgb Hct MCV MCH MCHC RDW Plt Count MPV Sodium Potassium Chloride Carbon Dioxide Anion Gap BUN Creatinine Est GFR (CKD-EPI)AfAm Est GFR (CKD-EPI)NonAf POC Glucometer 224 299 452 Random Glucose Calcium Total Bilirubin AST ALT Alkaline Phosphatase Total Protein Albumin Syphilis Serology COVID-19 ([facility]) HIV Ag/Ab Combo Qual 09/07/19 09/07/19 09/07/19 06:34 11:58 16:37 WBC RBC Hgb Hct MCV MCH MCHC RDW Plt Count MPV Sodium Potassium Chloride Carbon Dioxide Anion Gap BUN Creatinine Est GFR (CKD-EPI)AfAm Est GFR (CKD-EPI)NonAf POC Glucometer 269 318 361 Random Glucose Calcium Total Bilirubin AST ALT Alkaline Phosphatase Total Protein Albumin Syphilis Serology COVID-19 ([facility]) HIV Ag/Ab Combo Qual 09/07/19 09/08/19 09/08/19 20:01 06:30 11:21 WBC RBC Hgb Hct MCV MCH MCHC RDW Plt Count MPV Sodium Potassium Chloride Carbon Dioxide Anion Gap BUN Creatinine Est GFR (CKD-EPI)AfAm Est GFR (CKD-EPI)NonAf POC Glucometer 223 160 183 Random Glucose Calcium Total Bilirubin AST ALT Alkaline Phosphatase Total Protein Albumin Syphilis Serology COVID-19 ([facility]) HIV Ag/Ab Combo Qual log history of insulin dependent diabetes mr casas may return to endocranology in the community for possible long acting insulin daily routine 09/08/19 13:48 Assessment: 09/08/19 13:49 alcohol and opiate withdrawal Plan: librium and methadone regiments
[2019-09-08] MEDS: IBUPROFEN 400 MG TABLET (FP) PO PRN (18:18)
[2019-09-08] MEDS: MELATONIN 5 MG TABLETS PO SCH (21:09)
[2019-09-08] MEDS: THIAMINE HCL 100 MG TABLET (FP) PO SCH (21:09)
[2019-09-08] MEDS: LATANOPROST 0.005% OPHTH SOLN 2.5ML BOTTLE OD SCH (21:09)
[2019-09-09] MEDS ORDERED: chlordiazePOXIDE HCL 10 MG CAPSULE PO ONE (05:00)
[2019-09-09] MEDS ORDERED: METHADONE HCL 5 MG TABLET (FOR DETOX USE ONLY) PO ONE (06:00)
[2019-09-09] MEDS: hydrOXYzine PAMOATE 25 MG CAPSULE (FP) PO SCH (06:04)
[2019-09-09] MEDS: glyBURIDE 5 MG TABLET PO SCH (06:04)
[2019-09-09 06:31] VITALS: TEMP 97.4
[2019-09-09] MEDS ORDERED: INSULIN (NOVOLOG) ASPART 100 UNITS/ML 10ML VIAL ONE (06:35)
[2019-09-09] MEDS: INSULIN SLIDING SCALE (NOVOLOG) 1 VIAL SQ SCH (06:36)
[2019-09-09] MEDS: IBUPROFEN 400 MG TABLET (FP) PO PRN (06:42)
--- NOTE | 2019-09-09 09:05 | DS ---
[facility] Detox Discharge Summary Admission Date: 09/04/19 Discharge Date: 09/09/19 - History Present History: Alcohol Dependence, Cocaine Dependence, Opioid Dependence Pertinent Past History: DM HLD COPD Sleep Apnea with use of CPAP machine Glaucoma Right Eye - Physical Exam Results Vital Signs: Vital Signs Temperature 97.4 F L 09/09/19 06:29 Pulse Rate 61 09/09/19 06:29 Respiratory Rate 18 09/09/19 06:29 Blood Pressure 122/76 09/09/19 06:29 O2 Sat by Pulse Oximetry (%) 97 09/09/19 06:29 Pertinent Admission Physical Exam Findings: Withdrawal sx Laboratory Tests 09/04/19 09/04/19 09/04/19 10:40 10:40 10:40 WBC 7.9 RBC 4.27 Hgb 13.6 Hct 39.9 MCV 93.5 MCH 31.8 MCHC 34.0 RDW 13.7 Plt Count 301 MPV 9.8 Sodium 135 L Potassium 4.3 Chloride 95 L Carbon Dioxide 32 Anion Gap 8 BUN 13.3 Creatinine 1.0 Est GFR (CKD-EPI)AfAm 101.26 Est GFR (CKD-EPI)NonAf 87.37 POC Glucometer Random Glucose 352 H Calcium 10.0 Total Bilirubin 0.9 AST 18 ALT 21 Alkaline Phosphatase 74 Total Protein 7.1 Albumin 3.8 Syphilis Serology Non-reactive COVID-19 ([facility]) HIV Ag/Ab Combo Qual 09/04/19 09/04/19 09/04/19 10:40 11:06 12:30 WBC RBC Hgb Hct MCV MCH MCHC RDW Plt Count MPV Sodium Potassium Chloride Carbon Dioxide Anion Gap BUN Creatinine Est GFR (CKD-EPI)AfAm Est GFR (CKD-EPI)NonAf POC Glucometer 417 Random Glucose Calcium Total Bilirubin AST ALT Alkaline Phosphatase Total Protein Albumin Syphilis Serology COVID-19 ([facility]) Not detected HIV Ag/Ab Combo Qual Negative 09/04/19 09/04/19 09/05/19 16:35 21:29 07:30 WBC RBC Hgb Hct MCV MCH MCHC RDW Plt Count MPV Sodium Potassium Chloride Carbon Dioxide Anion Gap BUN Creatinine Est GFR (CKD-EPI)AfAm Est GFR (CKD-EPI)NonAf POC Glucometer 333 403 180 Random Glucose Calcium Total Bilirubin AST ALT Alkaline Phosphatase Total Protein Albumin Syphilis Serology COVID-19 ([facility]) HIV Ag/Ab Combo Qual 09/05/19 09/05/19 09/05/19 11:09 16:53 20:22 WBC RBC Hgb Hct MCV MCH MCHC RDW Plt Count MPV Sodium Potassium Chloride Carbon Dioxide Anion Gap BUN Creatinine Est GFR (CKD-EPI)AfAm Est GFR (CKD-EPI)NonAf POC Glucometer 267 221 356 Random Glucose Calcium Total Bilirubin AST ALT Alkaline Phosphatase Total Protein Albumin Syphilis Serology COVID-19 ([facility]) HIV Ag/Ab Combo Qual 09/06/19 09/06/19 09/06/19 07:02 11:12 16:54 WBC RBC Hgb Hct MCV MCH MCHC RDW Plt Count MPV Sodium Potassium Chloride Carbon Dioxide Anion Gap BUN Creatinine Est GFR (CKD-EPI)AfAm Est GFR (CKD-EPI)NonAf POC Glucometer 224 299 452 Random Glucose Calcium Total Bilirubin AST ALT Alkaline Phosphatase Total Protein Albumin Syphilis Serology COVID-19 ([facility]) HIV Ag/Ab Combo Qual 09/07/19 09/07/19 09/07/19 06:34 11:58 16:37 WBC RBC Hgb Hct MCV MCH MCHC RDW Plt Count MPV Sodium Potassium Chloride Carbon Dioxide Anion Gap BUN Creatinine Est GFR (CKD-EPI)AfAm Est GFR (CKD-EPI)NonAf POC Glucometer 269 318 361 Random Glucose Calcium Total Bilirubin AST ALT Alkaline Phosphatase Total Protein Albumin Syphilis Serology COVID-19 ([facility]) HIV Ag/Ab Combo Qual 09/07/19 09/08/19 09/08/19 20:01 06:30 11:21 WBC RBC Hgb Hct MCV MCH MCHC RDW Plt Count MPV Sodium Potassium Chloride Carbon Dioxide Anion Gap BUN Creatinine Est GFR (CKD-EPI)AfAm Est GFR (CKD-EPI)NonAf POC Glucometer 223 160 183 Random Glucose Calcium Total Bilirubin AST ALT Alkaline Phosphatase Total Protein Albumin Syphilis Serology COVID-19 ([facility]) HIV Ag/Ab Combo Qual 09/08/19 09/08/19 09/09/19 16:19 20:31 06:02 WBC RBC Hgb Hct MCV MCH MCHC RDW Plt Count MPV Sodium Potassium Chloride Carbon Dioxide Anion Gap BUN Creatinine Est GFR (CKD-EPI)AfAm Est GFR (CKD-EPI)NonAf POC Glucometer 202 212 171 Random Glucose Calcium Total Bilirubin AST ALT Alkaline Phosphatase Total Protein Albumin Syphilis Serology COVID-19 ([facility]) HIV Ag/Ab Combo Qual - [facility] Course: Detox Protocol Followed, Detoxed Safely, Responded well, Dis charged Condition Good, Rehab Referral Accepted Patient has Accepted a Rehab Referral to: [facility]-but wants to return after going home - Medication Discharge Medications: Ambulatory Orders Citalopram Hydrobromide [Celexa -] 10 mg PO DAILY #30 tablet 04/18/17 Albuterol Sulfate Inhaler - [Ventolin HFA Inhaler -] 2 inh PO Q4H PRN #1 inhaler 09/09/19 Glyburide 5 mg PO BID #60 tablet 09/09/19 Latanoprost 0.005% Eye Drops [Xalatan 0.005% Eye Drops -] 1 drop OD HS #1 drops 09/09/19 - Diagnosis (1) Alcohol dependence with withdrawal, uncomplicated Status: Acute (2) Cocaine dependence Status: Acute Qualifiers: Substance use status: uncomplicated Qualified Code(s): F14.20 - Cocaine dependence, uncomplicated (3) Opioid dependence, uncomplicated Status: Acute (4) COPD (chronic obstructive pulmonary disease) Status: Chronic Qualifiers: Emphysema type: unspecified (5) Diabetes mellitus treated with oral medication Status: 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, indeterminate stage Status: Chronic Qualifiers: Laterality: right Qualified Code(s): H40.51X4 - Glaucoma secondary to other eye disorders, right eye, indeterminate stage (7) Nicotine dependence Status: Acute Qualifiers: Nicotine product type: cigarettes Substance use status: in withdrawal Qualified Code(s): F17.213 - Nicotine dependence, cigarettes, with withdrawal (8) Obesity Status: Chronic Qualifiers: Obesity type: due to excess calories Obesity classification: adult class 1 (BMI 30 - 34.9) Serious obesity comorbidity presence: without serious comorbidity Body mass index: BMI 34.0-34.9 Qualified Code(s): E66.09 - Other obesity due to excess calories; Z68.34 - Body mass index (BMI) 34.0-34.9, adult (9) Sleep apnea with use of continuous positive airway pressure (CPAP) Status: Chronic - AMA Did Patient Leave Against Medical Advice: No
[2019-09-09 11:29] VITALS: BP 118/75; PULSE 72
== END 2019-09-09 09:54 | disposition home or self-care (01) | DRG 773 ==
LOC: YASAS 10:08 → Y5N DETOX 11:36
PROVIDERS: ADMIT Allergy & Immunology; ATTEND Allergy & Immunology
PROC: HZ2ZZZZ Detoxification Services for Substance Abuse Treatment (ICD-10-PCS; principal; 2019-09-04)
DX: F10.230 Alcohol dependence with withdrawal, uncomplicated (principal); F11.23 Opioid dependence with withdrawal; F14.20 Cocaine dependence, uncomplicated; F17.210 Nicotine dependence, cigarettes, uncomplicated; F31.81 Bipolar II disorder; F19.280 Other psychoactive substance dependence with psychoactive substance-induced anxiety disorder; F19.282 Other psychoactive substance dependence with psychoactive substance-induced sleep disorder; F43.10 Post-traumatic stress disorder, unspecified; J44.9 Chronic obstructive pulmonary disease, unspecified; G47.30 Sleep apnea, unspecified; E11.9 Type 2 diabetes mellitus without complications; Z79.4 Long term (current) use of insulin; M79.10 Myalgia, unspecified site; M54.89 Other dorsalgia; G89.29 Other chronic pain; Z99.89 Dependence on other enabling machines and devices; E78.5 Hyperlipidemia, unspecified; Z62.810 Personal history of physical and sexual abuse in childhood; Z91.410 Personal history of adult physical and sexual abuse
CPT/HCPCS: 36415; 80053; 82962; 85027; 86780; 87389; 93005; 93010; U0003

== ENCOUNTER 2019-10-05 11:53 | Inpatient (IN) | payer OTHER ==
--- NOTE | 2019-10-05 16:57 | BHS.RME ---
Substance Use & Tx History - Substance Use History Heroin Substance amount: 6 tp 7 ngas Frequency of use: Daily Substance route: Inhalation (ex: sniffing or snorting) Date of Last Use: 10/05/19 Alcohol Substance amount: 2 of 16 ozs of beer Frequency of use: Daily Substance route: Oral Date of Last Use: 10/05/19 Cocaine-Crack Substance amount: 50$ Frequency of use: Less than 3 times per week Substance route: Smoking Date of Last Use: 10/03/19 - Last Treatment Date of last treatment: [facility] 09/04/19 to 09/09/19 Where was last treatment: Detox Physical/Psych/Mental Status - Behavior Eye Contact: Normal - Thinking Thought Processes: Logical Thought content: Future oriented - Physical Health Problems Is patient presently having any pain?: No Does patient presently have any injuries (include location): No Does patient currently have a fever: No CIWA Nausea/Vomitin Muscle Tremors: 3 Anxiety: 3 Agitation: 3 Paroxysmal Sweats: 1-Minimal Palms Moist Orientation: 0-Oriented Tacttile Disturbances: 1-Very Mild Itch/Numbness Auditory Disturbances: 0-None Visual Disturbances: 0-None Headache: 2-Mild CIWA-Ar Total Score: 15
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
[2019-10-05] MEDS ORDERED: MENTHOL/PHENOL 1 EACH UD MM PRN (17:53)
[2019-10-05] MEDS ORDERED: chlordiazePOXIDE HCL 25 MG CAPSULE PO PRN (17:53)
[2019-10-05] MEDS ORDERED: IBUPROFEN 400 MG TABLET (FP) PO PRN (17:53)
[2019-10-05] MEDS ORDERED: MAGNESIUM CITRATE 300 ML BOTTLE PO PRN (17:53)
[2019-10-05] MEDS ORDERED: BISMUTH SUBSALICYLATE 524 MG/30 ML UD PO PRN (17:53)
[2019-10-05] MEDS ORDERED: ACETAMINOPHEN 325 MG TABLET (FP) PO PRN ×2 (17:53)
[2019-10-05] MEDS ORDERED: METHOCARBAMOL 500 MG TABLET PO PRN (17:53)
[2019-10-05] MEDS ORDERED: cloNIDine HCL 0.1 MG TABLET PO PRN (17:53)
[2019-10-05] MEDS ORDERED: MAG HYDROX/AL HYDROX/SIMETH 30 ML UNIT-DOSE CUP PO PRN (17:53)
[2019-10-05] MEDS ORDERED: ALBUTEROL SO4 HFA INHALER IH PRN (17:57)
[2019-10-05 17:58] VITALS: BMI 31.6
[2019-10-05] MEDS ORDERED: METHADONE HCL 10 MG TABLET (FOR DETOX USE ONLY) PO ONE (18:30)
[2019-10-05] MEDS ORDERED: ONDANSETRON *ODT* 4 MG TABLET SL ONE (18:30)
[2019-10-05] MEDS: hydrOXYzine PAMOATE 25 MG CAPSULE (FP) PO SCH ×2 (20:22→22:16)
[2019-10-05] MEDS: NICOTINE POLACRILEX 2 MG GUM BUC PRN (20:25)
[2019-10-05] MEDS: THIAMINE HCL 100 MG TABLET (FP) PO SCH (22:15)
[2019-10-05] MEDS: chlordiazePOXIDE HCL 25 MG CAPSULE PO SCH (22:15)
[2019-10-05] MEDS: MELATONIN 5 MG TABLETS PO SCH (22:15)
[2019-10-05] MEDS: LATANOPROST 0.005% OPHTH SOLN 2.5ML BOTTLE OD SCH (22:16)
[2019-10-06] MEDS: hydrOXYzine PAMOATE 25 MG CAPSULE (FP) PO SCH ×4 (05:29→18:06)
[2019-10-06] MEDS: chlordiazePOXIDE HCL 25 MG CAPSULE PO SCH ×4 (05:30→22:43)
[2019-10-06] MEDS: glyBURIDE 5 MG TABLET PO SCH (07:35)
[2019-10-06] MEDS: NICOTINE POLACRILEX 2 MG GUM BUC PRN ×3 (08:40→18:09)
[2019-10-06] MEDS ORDERED: METHADONE HCL 5 MG TABLET (FOR DETOX USE ONLY) ONE (09:37)
[2019-10-06] MEDS ORDERED: METHADONE HCL 10 MG TABLET (FOR DETOX USE ONLY) ONE (09:37)
[2019-10-06] MEDS ORDERED: METHADONE (DETOX) 20 MG, METHADONE (DETOX) 5 MG PO ONE (10:00)
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
[2019-10-06] MEDS: NICOTINE 21 MG/24 HOURS TOPICAL PATCH TD SCH (10:25)
[2019-10-06] MEDS: PRENATAL VITAMINS W/ FOLIC ACID TABLET (FP) PO SCH (10:25)
[2019-10-06 12:28] LABS: HEMATOCRIT 41.5 % (35.4-49); HEMOGLOBIN 13.8 GM/dL (11.7-16.9); MCHC 33.2 g/dl (32.0-35.9); MEAN CELL VOLUME 93.3 fl (80-96); MEAN PLT VOLUME 9.5 fl (7.5-11.1); PLATELET COUNT 262 K/MM3 (134-434); RBC 4.45 M/mm3 (4.00-5.60); RDW 13.7 % (11.9-15.9); WHITE BLOOD COUNT 7.5 K/mm3 (4.0-10.0)
[2019-10-06 12:46] LABS: ALBUMIN 3.3 g/dl (3.4-5.0); BLOOD UREA NITROGEN 13.7 mg/dL (7-18); CALCIUM 8.9 mg/dL (8.5-10.1)
[2019-10-06 12:49] LABS: BILIRUBIN,TOTAL 0.5 mg/dL (0.2-1); CREATININE 0.9 mg/dL (0.55-1.3); TOT PROT 6.5 g/dl (6.4-8.2)
--- NOTE | 2019-10-06 13:50 | PN ---
[facility] CIWA - CIWA Score Nausea/Vomitin-Mild Nausea/No Vomiting Muscle Tremors: 2 Anxiety: 2 Agitation: 2 Paroxysmal Sweats: 3 Orientation: 0-Oriented Tacttile Disturbances: 1-Very Mild Itch/Numbness Auditory Disturbances: 0-None Visual Disturbances: 0-None Headache: 0-None Present CIWA-Ar Total Score: 11 BHS COWS - Scale Resting Pulse: 0= [place] 80 or Below Sweatin= Chills/Flushing Restless Observation: 0= Sits Still Pupil Size: 0= Normal to Room Light Bone or Joint Aches: 2= Severe Diffuse Aches Runny Nose/ Eye Tearin= Runny Nose/Eyes GI Upset > 30mins: 2= Nausea/Diarrhea Tremor Observation of Outstretched Hands: 2= Slight Tremor Visible Yawning Observation: 0= None Anxiety or Irritability: 2=Irritable/Anxious Goose Flesh Skin: 0=Smooth Skin COWS Score: 11 [facility] Progress Note (SOAP) Subjective: Runny nose, tired, nausea, interrupted sleep Objective: 10/06/19 13:47 Last Vital Signs Temp Pulse Resp BP Pulse Ox 97.8 F 61 16 113/64 99 10/06/19 12:20 10/06/19 12:20 10/06/19 12:20 10/06/19 12:20 10/06/19 12:20 Laboratory Tests 10/06/19 10/06/19 10/06/19 05:29 07:20 07:20 WBC 7.5 RBC 4.45 Hgb 13.8 Hct 41.5 MCV 93.3 MCH 31.0 MCHC 33.2 RDW 13.7 Plt Count 262 MPV 9.5 Sodium Potassium Chloride Carbon Dioxide Anion Gap BUN Creatinine Est GFR (CKD-EPI)AfAm Est GFR (CKD-EPI)NonAf POC Glucometer 250 Random Glucose Calcium Total Bilirubin AST ALT Alkaline Phosphatase Total Protein Albumin Syphilis Serology Non-reactive 10/06/19 07:20 WBC RBC Hgb Hct MCV MCH MCHC RDW Plt Count MPV Sodium 137 Potassium 4.0 Chloride 106 Carbon Dioxide 28 Anion Gap 3 L BUN 13.7 Creatinine 0.9 Est GFR (CKD-EPI)AfAm 115.02 Est GFR (CKD-EPI)NonAf 99.24 POC Glucometer Random Glucose 239 H Calcium 8.9 Total Bilirubin 0.5 AST 9 L ALT 13 Alkaline Phosphatase 61 Total Protein 6.5 Albumin 3.3 L Syphilis Serology Labs reviewed: hyperglycemia Assessment: 10/06/19 13:49 Withdrawal sxs Noted with hyperglycemia Plan: Continue detox Encouraged PO water hydration Hyperglycemia secondary to DMT2: continue diabetic regimen, monitor FS, follow up with PCP post discharge for management
[2019-10-06] MEDS: MELATONIN 5 MG TABLETS PO SCH (22:43)
[2019-10-06] MEDS: LATANOPROST 0.005% OPHTH SOLN 2.5ML BOTTLE OD SCH (22:43)
[2019-10-06] MEDS: THIAMINE HCL 100 MG TABLET (FP) PO SCH (22:43)
[2019-10-07] MEDS: glyBURIDE 5 MG TABLET PO SCH ×3 (00:29→17:14)
[2019-10-07] MEDS: hydrOXYzine PAMOATE 25 MG CAPSULE (FP) PO SCH ×2 (00:30→05:43)
[2019-10-07] MEDS: chlordiazePOXIDE HCL 25 MG CAPSULE PO SCH ×4 (05:43→22:19)
[2019-10-07] MEDS: NICOTINE POLACRILEX 2 MG GUM BUC PRN ×3 (07:30→20:31)
[2019-10-07] MEDS ORDERED: METHADONE HCL 10 MG TABLET (FOR DETOX USE ONLY) PO ONE (10:00)
--- NOTE | 2019-10-07 10:10 | PN ---
[facility] CIWA - CIWA Score Nausea/Vomitin-No Nausea/No Vomiting Muscle Tremors: 3 Anxiety: 2 Agitation: 2 Paroxysmal Sweats: 2 Orientation: 0-Oriented Tacttile Disturbances: 0-None Auditory Disturbances: 0-None Visual Disturbances: 0-None Headache: 0-None Present CIWA-Ar Total Score: 9 [facility] COWS - Scale Resting Pulse: 0= [place] 80 or Below Sweatin= Chills/Flushing Restless Observation: 1= Difficult to Sit Still Pupil Size: 0= Normal to Room Light Bone or Joint Aches: 1= Mild Discomfort Runny Nose/ Eye Tearin= None GI Upset > 30mins: 0= None Tremor Observation of Outstretched Hands: 1= Tremor [place], Not Seen Yawning Observation: 2= >3x During Session Anxiety or Irritability: 2=Irritable/Anxious Goose Flesh Skin: 0=Smooth Skin COWS Score: 8 BHS Progress Note (SOAP) Subjective: tired sweats irritable constipation Objective: 10/07/19 10:09 Vital Signs Temperature 97.3 F L 10/07/19 08:35 Pulse Rate 72 10/07/19 08:35 Respiratory Rate 18 10/07/19 08:35 Blood Pressure 111/74 10/07/19 08:35 O2 Sat by Pulse Oximetry (%) 98 10/07/19 05:29 Laboratory Tests 10/05/19 10/06/19 10/06/19 18:35 05:29 07:20 WBC RBC Hgb Hct MCV MCH MCHC RDW Plt Count MPV Sodium Potassium Chloride Carbon Dioxide Anion Gap BUN Creatinine Est GFR (CKD-EPI)AfAm Est GFR (CKD-EPI)NonAf POC Glucometer 250 Random Glucose Calcium Total Bilirubin AST ALT Alkaline Phosphatase Total Protein Albumin Syphilis Serology Non-reactive COVID-19 ([facility]) Not detected 10/06/19 10/06/19 10/06/19 07:20 07:20 16:25 WBC 7.5 RBC 4.45 Hgb 13.8 Hct 41.5 MCV 93.3 MCH 31.0 MCHC 33.2 RDW 13.7 Plt Count 262 MPV 9.5 Sodium 137 Potassium 4.0 Chloride 106 Carbon Dioxide 28 Anion Gap 3 L BUN 13.7 Creatinine 0.9 Est GFR (CKD-EPI)AfAm 115.02 Est GFR (CKD-EPI)NonAf 99.24 POC Glucometer 209 Random Glucose 239 H Calcium 8.9 Total Bilirubin 0.5 AST 9 L ALT 13 Alkaline Phosphatase 61 Total Protein 6.5 Albumin 3.3 L Syphilis Serology COVID-19 ([facility]) 10/07/19 05:41 WBC RBC Hgb Hct MCV MCH MCHC RDW Plt Count MPV Sodium Potassium Chloride Carbon Dioxide Anion Gap BUN Creatinine Est GFR (CKD-EPI)AfAm Est GFR (CKD-EPI)NonAf POC Glucometer 145 Random Glucose Calcium Total Bilirubin AST ALT Alkaline Phosphatase Total Protein Albumin Syphilis Serology COVID-19 ([facility]) labs noted aaox3 ambulating no acute distress Assessment: 10/07/19 10:09 withdrawals Plan: continue detox increase fluids
[2019-10-07] MEDS: NICOTINE 21 MG/24 HOURS TOPICAL PATCH TD SCH (10:26)
[2019-10-07] MEDS: PRENATAL VITAMINS W/ FOLIC ACID TABLET (FP) PO SCH (10:26)
[2019-10-07] MEDS: MAGNESIUM HYDROX 2400MG/30ML ORAL SUSPENSION 30 ML CUP PO PRN ×2 (10:28→17:16)
[2019-10-07] MEDS: MELATONIN 5 MG TABLETS PO SCH (22:18)
[2019-10-07] MEDS: THIAMINE HCL 100 MG TABLET (FP) PO SCH (22:19)
[2019-10-07] MEDS: LATANOPROST 0.005% OPHTH SOLN 2.5ML BOTTLE OD SCH (22:23)
[2019-10-08] MEDS ORDERED: chlordiazePOXIDE HCL 10 MG CAPSULE PO PRN
[2019-10-08] MEDS: chlordiazePOXIDE HCL 10 MG CAPSULE PO SCH ×4 (05:29→22:07)
[2019-10-08] MEDS: NICOTINE POLACRILEX 2 MG GUM BUC PRN ×3 (05:37→19:15)
[2019-10-08] MEDS: glyBURIDE 5 MG TABLET PO SCH ×2 (06:08→16:59)
[2019-10-08] MEDS ORDERED: METHADONE HCL 5 MG TABLET (FOR DETOX USE ONLY) ONE (09:02)
[2019-10-08] MEDS ORDERED: METHADONE HCL 10 MG TABLET (FOR DETOX USE ONLY) ONE (09:02)
[2019-10-08] MEDS ORDERED: METHADONE (DETOX) 10 MG, METHADONE (DETOX) 5 MG PO ONE (10:00)
[2019-10-08] MEDS: PRENATAL VITAMINS W/ FOLIC ACID TABLET (FP) PO SCH (10:20)
[2019-10-08] MEDS: NICOTINE 21 MG/24 HOURS TOPICAL PATCH TD SCH (10:20)
--- NOTE | 2019-10-08 10:54 | PN ---
S CIWA - CIWA Score Nausea/Vomitin-No Nausea/No Vomiting Muscle Tremors: 2 Anxiety: 1-Mildly Anxious Agitation: 2 Paroxysmal Sweats: 1-Minimal Palms Moist Orientation: 0-Oriented Tacttile Disturbances: 0-None Auditory Disturbances: 0-None Visual Disturbances: 0-None Headache: 0-None Present CIWA-Ar Total Score: 6 BHS COWS - Scale Resting Pulse: 0= [place] 80 or Below Sweatin= Chills/Flushing Restless Observation: 1= Difficult to Sit Still Pupil Size: 0= Normal to Room Light Bone or Joint Aches: 1= Mild Discomfort Runny Nose/ Eye Tearin= None GI Upset > 30mins: 1= Stomach Cramp Tremor Observation of Outstretched Hands: 1= Tremor [place], Not Seen Yawning Observation: 1= 1-2x During Session Anxiety or Irritability: 1=Feels Anxious/Irritable Goose Flesh Skin: 0=Smooth Skin COWS Score: 7 [facility] Progress Note (SOAP) Subjective: constipation sweats body aches Objective: 10/08/19 10:54 Vital Signs Temperature 97.1 F L 10/08/19 08:45 Pulse Rate 73 10/08/19 08:45 Respiratory Rate 19 10/08/19 08:45 Blood Pressure 122/67 10/08/19 08:45 O2 Sat by Pulse Oximetry (%) 98 10/08/19 08:45 Laboratory Tests 10/05/19 10/06/19 10/06/19 18:35 05:29 07:20 WBC RBC Hgb Hct MCV MCH MCHC RDW Plt Count MPV Sodium Potassium Chloride Carbon Dioxide Anion Gap BUN Creatinine Est GFR (CKD-EPI)AfAm Est GFR (CKD-EPI)NonAf POC Glucometer 250 Random Glucose Calcium Total Bilirubin AST ALT Alkaline Phosphatase Total Protein Albumin Syphilis Serology Non-reactive COVID-19 ([facility]) Not detected 10/06/19 10/06/19 10/06/19 07:20 07:20 16:25 WBC 7.5 RBC 4.45 Hgb 13.8 Hct 41.5 MCV 93.3 MCH 31.0 MCHC 33.2 RDW 13.7 Plt Count 262 MPV 9.5 Sodium 137 Potassium 4.0 Chloride 106 Carbon Dioxide 28 Anion Gap 3 L BUN 13.7 Creatinine 0.9 Est GFR (CKD-EPI)AfAm 115.02 Est GFR (CKD-EPI)NonAf 99.24 POC Glucometer 209 Random Glucose 239 H Calcium 8.9 Total Bilirubin 0.5 AST 9 L ALT 13 Alkaline Phosphatase 61 Total Protein 6.5 Albumin 3.3 L Syphilis Serology COVID-19 ([facility]) 10/07/19 10/07/19 10/08/19 05:41 16:18 05:30 WBC RBC Hgb Hct MCV MCH MCHC RDW Plt Count MPV Sodium Potassium Chloride Carbon Dioxide Anion Gap BUN Creatinine Est GFR (CKD-EPI)AfAm Est GFR (CKD-EPI)NonAf POC Glucometer 145 197 262 Random Glucose Calcium Total Bilirubin AST ALT Alkaline Phosphatase Total Protein Albumin Syphilis Serology COVID-19 ([facility]) labs noted aaox3 ambulating no acute distress Assessment: 10/08/19 10:55 withdrawals Plan: continue detox increase fluids prune juice with meals citroma prn
[2019-10-08] MEDS ORDERED: INSULIN (NOVOLOG) ASPART 100 UNITS/ML 10ML VIAL SQ ONE ×2 (16:42→16:54)
--- NOTE | 2019-10-08 16:50 | PN ---
S Progress Note Note: Patient's blood sugar is 316mg/dl. Patient is asymptomatic Vital Signs Temperature 97.1 F L 10/08/19 12:36 Pulse Rate 73 10/08/19 12:36 Respiratory Rate 18 10/08/19 12:36 Blood Pressure 126/71 10/08/19 12:36 O2 Sat by Pulse Oximetry (%) 98 10/08/19 12:36 Glucose Results-Entire Visit 10/06/19 07:20 Random Glucose 239 mg/dL H mg/dL (74-106) BGM Results Entire Visit 10/06/19 10/06/19 10/07/19 05:29 16:25 05:41 POC Glucometer 250 UNITS UNITS 209 UNITS UNITS 145 UNITS UNITS (80-120) (80-120) (80-120) 10/07/19 10/08/19 10/08/19 16:18 05:30 16:31 POC Glucometer 197 UNITS UNITS 262 UNITS UNITS 316 UNITS UNITS (80-120) (80-120) (80-120) Action: Insulin Novolog 4 units SQ ordered Glyburide 5mg tablet oral
[2019-10-08] MEDS ORDERED: INSULIN SLIDING SCALE (NOVOLOG) 1 VIAL SQ ONE (17:04)
[2019-10-08] MEDS: hydrOXYzine PAMOATE 25 MG CAPSULE (FP) PO PRN (19:15)
[2019-10-08] MEDS: MELATONIN 5 MG TABLETS PO SCH (21:53)
[2019-10-08] MEDS: LATANOPROST 0.005% OPHTH SOLN 2.5ML BOTTLE OD SCH (21:53)
[2019-10-08] MEDS: THIAMINE HCL 100 MG TABLET (FP) PO SCH (21:53)
[2019-10-09] MEDS: chlordiazePOXIDE HCL 10 MG CAPSULE PO SCH ×2 (05:39→17:43)
[2019-10-09] MEDS: glyBURIDE 5 MG TABLET PO SCH ×2 (07:19→16:41)
[2019-10-09] MEDS: NICOTINE POLACRILEX 2 MG GUM BUC PRN ×3 (07:38→15:27)
[2019-10-09] MEDS ORDERED: METHADONE HCL 10 MG TABLET (FOR DETOX USE ONLY) PO ONE (10:00)
[2019-10-09] MEDS: NICOTINE 21 MG/24 HOURS TOPICAL PATCH TD SCH (11:08)
[2019-10-09] MEDS: PRENATAL VITAMINS W/ FOLIC ACID TABLET (FP) PO SCH (11:08)
[2019-10-09] MEDS: hydrOXYzine PAMOATE 25 MG CAPSULE (FP) PO PRN ×3 (11:09→21:35)
--- NOTE | 2019-10-09 12:18 | PN ---
[facility] CIWA - CIWA Score Nausea/Vomitin-Mild Nausea/No Vomiting Muscle Tremors: 1-None Visible, but [place] Anxiety: 1-Mildly Anxious Agitation: 1-Slight > Activity Paroxysmal Sweats: No Perspiration Orientation: 0-Oriented Tacttile Disturbances: 1-Very Mild Itch/Numbness Auditory Disturbances: 0-None Visual Disturbances: 0-None Headache: 1-Very Mild CIWA-Ar Total Score: 6 BHS COWS - Scale Resting Pulse: 0= [place] 80 or Below Sweatin= No chills or Flushing Restless Observation: 0= Sits Still Pupil Size: 0= Normal to Room Light Bone or Joint Aches: 1= Mild Discomfort Runny Nose/ Eye Tearin= Nasal Congestion GI Upset > 30mins: 1= Stomach Cramp Tremor Observation of Outstretched Hands: 1= Tremor [place], Not Seen Yawning Observation: 1= 1-2x During Session Anxiety or Irritability: 2=Irritable/Anxious Goose Flesh Skin: 0=Smooth Skin COWS Score: 7 [facility] Progress Note (SOAP) Subjective: alert,irritable,anxious,interrupted sleep,pain in the body and back Objective: 10/09/19 12:18 Vital Signs Temperature 97.1 F L 10/09/19 05:29 Pulse Rate 60 10/09/19 05:29 Respiratory Rate 20 10/09/19 05:29 Blood Pressure 102/75 10/09/19 05:29 O2 Sat by Pulse Oximetry (%) 99 10/09/19 05:29 Assessment: 10/09/19 12:19 withdrawal symptom Plan: continue detox methadone and librium regimen
[2019-10-09] MEDS ORDERED: INSULIN (NOVOLOG) ASPART 100 UNITS/ML 10ML VIAL SQ ONE (16:53)
[2019-10-09] MEDS ORDERED: INSULIN SLIDING SCALE (NOVOLOG) 1 VIAL SQ ONE (17:04)
[2019-10-09] MEDS: THIAMINE HCL 100 MG TABLET (FP) PO SCH (21:33)
[2019-10-09] MEDS: MELATONIN 5 MG TABLETS PO SCH (21:33)
[2019-10-09] MEDS: LATANOPROST 0.005% OPHTH SOLN 2.5ML BOTTLE OD SCH (21:33)
[2019-10-10] MEDS ORDERED: chlordiazePOXIDE HCL 10 MG CAPSULE PO ONE (05:00)
[2019-10-10] MEDS ORDERED: METHADONE HCL 5 MG TABLET (FOR DETOX USE ONLY) PO ONE (06:00)
[2019-10-10 06:20] VITALS: BP 105/60; PULSE 69; TEMP 96.9
[2019-10-10] MEDS ORDERED: INSULIN SLIDING SCALE (NOVOLOG) 1 VIAL SQ SCH (07:00)
[2019-10-10] MEDS: glyBURIDE 5 MG TABLET PO SCH (07:01)
[2019-10-10] MEDS: NICOTINE POLACRILEX 2 MG GUM BUC PRN ×2 (07:21→09:36)
[2019-10-10] MEDS: hydrOXYzine PAMOATE 25 MG CAPSULE (FP) PO PRN (09:02)
[2019-10-10] MEDS: NICOTINE 21 MG/24 HOURS TOPICAL PATCH TD SCH (09:48)
[2019-10-10] MEDS: PRENATAL VITAMINS W/ FOLIC ACID TABLET (FP) PO SCH (09:49)
--- NOTE | 2019-10-10 12:01 | PN ---
[facility] COWS - Scale Resting Pulse: 0= [place] 80 or Below Sweatin= No chills or Flushing Restless Observation: 0= Sits Still Pupil Size: 0= Normal to Room Light Bone or Joint Aches: 0= None Runny Nose/ Eye Tearin= None GI Upset > 30mins: 0= None Tremor Observation of Outstretched Hands: 0= None Yawning Observation: 0= None Anxiety or Irritability: 1=Feels Anxious/Irritable Goose Flesh Skin: 0=Smooth Skin COWS Score: 1 [facility] Progress Note (SOAP) Subjective: alert,no complaint Objective: 10/10/19 11:54 Vital Signs Temperature 96.9 F L 10/10/19 05:21 Pulse Rate 69 10/10/19 05:21 Respiratory Rate 20 10/10/19 05:21 Blood Pressure 105/60 10/10/19 05:21 O2 Sat by Pulse Oximetry (%) 98 10/10/19 05:21 10/10/19 11:54 Laboratory Results - last 24 hr 10/09/19 10/10/19 16:38 05:35 POC Glucometer 379 145 Assessment: 10/10/19 11:54 detox completed,no withdrawal symptom Plan: stable for discharge today,follow up with after care program as arrangement [facility]
--- NOTE | 2019-10-10 12:02 | DS ---
[facility] Detox Discharge Summary Admission Date: 10/05/19 Discharge Date: 10/10/19 - History Present History: Alcohol Dependence, Cocaine Dependence, Opioid Dependence Additional Comments: alert,oriented x 3 ambulation on the unit lung clear on auscultation bilaterally abdomen soft,no distension,no pain extremity no swelling stable for discharge today detox completed,no withdrawal symptom follow up with after [facility] program [facility] total time on discharge 35 minutes Pertinent Past History: glaucoma right eye type 2 dm copd nicotine dependence - Physical Exam Results Vital Signs: Vital Signs Temperature 96.9 F L 10/10/19 05:21 Pulse Rate 69 10/10/19 05:21 Respiratory Rate 20 10/10/19 05:21 Blood Pressure 105/60 10/10/19 05:21 O2 Sat by Pulse Oximetry (%) 98 10/10/19 05:21 Pertinent Admission Physical Exam Findings: withdrawal signs and symptom Laboratory Last Values WBC 7.5 K/mm3 (4.0-10.0) 10/06/19 07:20 RBC 4.45 M/mm3 (4.00-5.60) 10/06/19 07:20 Hgb 13.8 GM/dL (11.7-16.9) 10/06/19 07:20 Hct 41.5 % (35.4-49) 10/06/19 07:20 MCV 93.3 fl (80-96) 10/06/19 07:20 MCH 31.0 pg (25.7-33.7) 10/06/19 07:20 MCHC 33.2 g/dl (32.0-35.9) 10/06/19 07:20 RDW 13.7 % (11.9-15.9) 10/06/19 07:20 Plt Count 262 K/MM3 (134-434) 10/06/19 07:20 MPV 9.5 fl (7.5-11.1) 10/06/19 07:20 Sodium 137 mmol/L (136-145) 10/06/19 07:20 Potassium 4.0 mmol/L (3.5-5.1) 10/06/19 07:20 Chloride 106 mmol/L (98-107) 10/06/19 07:20 Carbon Dioxide 28 mmol/L (21-32) 10/06/19 07:20 Anion Gap 3 MMOL/L (8-16) L 10/06/19 07:20 BUN 13.7 mg/dL (7-18) 10/06/19 07:20 Creatinine 0.9 mg/dL (0.55-1.3) 10/06/19 07:20 Est GFR (CKD-EPI)AfAm 115.02 10/06/19 07:20 Est GFR (CKD-EPI)NonAf 99.24 10/06/19 07:20 POC Glucometer 145 UNITS (80-120) 10/10/19 05:35 Random Glucose 239 mg/dL (74-106) H 10/06/19 07:20 Calcium 8.9 mg/dL (8.5-10.1) 10/06/19 07:20 Total Bilirubin 0.5 mg/dL (0.2-1) 10/06/19 07:20 AST 9 U/L (15-37) L 10/06/19 07:20 ALT 13 U/L (13-61) 10/06/19 07:20 Alkaline Phosphatase 61 U/L (45-117) 10/06/19 07:20 Total Protein 6.5 g/dl (6.4-8.2) 10/06/19 07:20 Albumin 3.3 g/dl (3.4-5.0) L 10/06/19 07:20 Syphilis Serology Non-reactive (NONREACTIVE) 10/06/19 07:20 COVID-19 ([facility]MPHREY) Not detected (Not Detected) 10/05/19 18:35 Vital Signs Temperature 96.9 F L 10/10/19 05:21 Pulse Rate 69 10/10/19 05:21 Respiratory Rate 20 10/10/19 05:21 Blood Pressure 105/60 10/10/19 05:21 O2 Sat by Pulse Oximetry (%) 98 10/10/19 05:21 - Treatment Hospital Course: Detox Protocol Followed, Detoxed Safely, Responded well, Discharged Condition Good, Rehab Referral Accepted Patient has Accepted a Rehab Referral to: [facility] - Medication Discharge Medications: Ambulatory Orders Citalopram Hydrobromide [Celexa -] 10 mg PO DAILY #30 tablet 04/18/17 Albuterol Sulfate Inhaler - [Ventolin HFA Inhaler -] 2 inh PO Q4H PRN #1 inhaler 07/06/20 Glyburide 5 mg PO BID #60 tablet 09/09/19 Latanoprost 0.005% Eye Drops [Xalatan 0.005% Eye Drops -] 1 drop OD HS #1 drops 09/09/19 - Diagnosis (1) Opioid dependence, uncomplicated Status: Acute (2) Alcohol dependence with withdrawal, uncomplicated Status: Acute (3) Cocaine dependence Status: Acute Qualifiers: Substance use status: uncomplicated Qualified Code(s): F14.20 - Cocaine dependence, uncomplicated (4) Nicotine dependence Status: Chronic Qualifiers: Nicotine product type: cigarettes Substance use status: in withdrawal Qualified Code(s): F17.213 - Nicotine dependence, cigarettes, with withdrawal (5) Anxiety and depression Status: Chronic (6) COPD (chronic obstructive pulmonary disease) Status: Chronic Qualifiers: Emphysema type: unspecified (7) Diabetes mellitus treated with oral medication Status: Chronic (8) Glaucoma associated with ocular disorder, indeterminate stage Status: Chronic Qualifiers: Laterality: right Qualified Code(s): H40.51X4 - Glaucoma secondary to other eye disorders, right eye, indeterminate stage - AMA Did Patient Leave Against Medical Advice: No
== END 2019-10-10 10:20 | disposition home or self-care (01) | DRG 773 ==
LOC: YASAS 11:53 → Y6N 18:09
PROVIDERS: ADMIT Allergy & Immunology; ATTEND Allergy & Immunology
PROC: HZ2ZZZZ Detoxification Services for Substance Abuse Treatment (ICD-10-PCS; principal; 2019-10-05)
DX: F11.23 Opioid dependence with withdrawal (principal); F10.230 Alcohol dependence with withdrawal, uncomplicated; F14.20 Cocaine dependence, uncomplicated; F17.213 Nicotine dependence, cigarettes, with withdrawal; F41.9 Anxiety disorder, unspecified; F31.81 Bipolar II disorder; F43.10 Post-traumatic stress disorder, unspecified; F19.280 Other psychoactive substance dependence with psychoactive substance-induced anxiety disorder; F19.282 Other psychoactive substance dependence with psychoactive substance-induced sleep disorder; E11.65 Type 2 diabetes mellitus with hyperglycemia; J44.9 Chronic obstructive pulmonary disease, unspecified; H40.51X4 Glaucoma secondary to other eye disorders, right eye, indeterminate stage; G47.30 Sleep apnea, unspecified; Z99.89 Dependence on other enabling machines and devices; E66.09 Other obesity due to excess calories; Z68.34 Body mass index [BMI] 34.0-34.9, adult; Z79.84 Long term (current) use of oral hypoglycemic drugs; Z87.438 Personal history of other diseases of male genital organs; Z91.5 Personal history of self-harm; Z56.0 Unemployment, unspecified; Z59.0 Homelessness
CPT/HCPCS: 36415; 80053; 82962; 85027; 86780; Q0162; U0003

== ENCOUNTER 2019-12-08 12:06 | Inpatient (IN) | payer OTHER ==
--- OUTSIDE RECORDS SUMMARY | 2019-12-08 12:16 | XMS ---
:1970 Author Organization [facility] Care Team Providers Name Role Phone BORA VALLEJO Unavailable Unavailable AIMEE FOUNTAIN Unavailable Unavailable GHULAM BARCENAS MD Unavailable Unavailable MD BEBE Unavailable Unavailable CELINE Unavailable Unavailable LAURENT Unavailable Unavailable GRACIA Unavailable Unavailable Re-disclosure Warning The records that you are about to access may contain information from federally- assisted alcohol or drug abuse programs. If such information is present, then the following federally mandated warning applies: This information has been disclosed to you from records protected by federal confidentiality rules (42 CFR part 2). The federal rules prohibit you from making any further disclosure of this information unless further disclosure is expressly permitted by the written consent of the person to whom it pertains or as otherwise permitted by 42 CFR part 2. A general authorization for the release of medical or other information is NOT sufficient for this purpose. The Federal rules restrict any use of the information to criminally investigate or prosecute any alcohol or drug abuse patient.The records that you are about to access may contain highly sensitive health information, the redisclosure of which is protected by Article 27-F of the [facility] Public Health law. If you continue you may haveaccess to information: Regarding HIV / AIDS; Provided by facilities licensed or operated by the [facility] Office of Mental Health; or Provided by the [facility] Office for People With Developmental Disabilities. If such information is present, then the following [facility] mandated warning applies: This information has been disclosed to you from confidential records which are protected by state law. State law prohibits you from making any further disclosure of this information without the specific written consent of the person to whom it pertains, or as otherwise permitted by law. Any unauthorized further disclosure in violation of state law may result in a fine or penitentiary sentence or both. A general authorization for the release of medical or other information is NOT sufficient authorization for further disclosure. Encounters Encounter Providers Location Date Indications Data Source(s ) Outpatient Attender: BORA 10/11/2019 The [facility] itsamantha Bruce YONI 12:15:42 PM [facility] EDT Patient admitted. Inpatient Attender: GHULAM WINKLER1D [facility] - 10[facility]15[facility]2019 [facility] 10:18:00 PM EDT Patient discharged. Outpatient [facility] 10/10/2019 02:12:00 PM EDT - [address] [place] [address] 05:37:00 PM EDT Patient discharged. Outpatient Attender: ERI 09/18/2019 10[facility]25:[facility]. Outpatient Attender: AIMEE FOUNTAIN 09/10/2019 12:38:44 PM The [facility] Patient admitted. Outpatient Attender: PAUL FAGAN 09/10/2019 08:34:53 AM The [facility] Patient admitted. Outpatient Attender: ERIC [facility] 02[facility]19/2018 [id number] 03:03:41 PM EST - Fo r Family 02/19/2018 Health 07:07:03 PM EST Outpatient Attender: PAUL 01/24/2018 [facility] 11:55:25 AM EST For Famil y Health Outpatient Attender: PAUL 11/01/2017 [facility] 03:58:52 PM EDT For Famil y Health Outpatient Attender: PAUL 10/19/2017 [facility] 11:16:36 AM EDT For Famil y Health Outpatient Attender: PAUL 07/14/2017 The [facility]AG[facility] 12:00:00 AM EDT For Famil y Health Outpatient 07/11/2017 The [place] 10:03:50 AM EDT - For Fam kiya 12/14/2017 Health 12:34:52 PM EDT Outpatient Attender: PAUL 07/07/2017 The [facility] FAG[facility] 08:34:06 AM EDT For Famil y Health Outpatient Attender: PAUL 06/23/2017 The [facility] 08:32:31 AM EDT For Famil y Health Outpatient Attender: 04/06/2017 The [facility] 01:03:20 PM EST For Famil y Health Outpatient Attender: PAUL 02/20/2017 [facility] 05:22:10 PM EST For Famil y Health Outpatient Attender: 02/13/2017 [facility] 11:04:44 AM EST For Famil y Health Outpatient Attender: 02/07/2017 The [facility] 04:47:02 PM EST For Famil y Health Medications Medication Brand Start Product Dose Route Administrative Pharmacy [facility] Indications Reaction Description Data Name Date Form Instructions Instructions Source(s) Citalopram Citalo 08/07/ 10 mg Oral active Bipolar Take ONE The 10 MG Oral pram 2018 affective tablet (1 0 [place] Tablet Hydrob 12:00: disorder, mg total) by For Family Citalopram romide 00 AM currently mouth daily Health Hydrobromid 10 MG EDT depressed, e 10 MG Oral mild (HCC) Oral Tab Tab Bipolar affective disorder, currently de pressed, mild (HCC) Take ONE tablet (10 mg total) by mouth d aily Citalopram 10 Citalopram 07/11/2017 10 Oral aborted Bipola r Take The MG Oral Hydrobromide 12:00:00 AM mg affective ONE [place] Tablet 10 MG Oral EDT disorder, tablet For Family Citalopram Tab currently (10 mg He alth Hydrobromide depressed, total) 10 MG Oral mild (HCC) by Tab mouth daily Bipolar affective disorder, currently de pressed, mild (HCC) Hydroxyzine hydrOXYzine 07/11/2017 50 Oral aborted Bipolar Take The Hydrochloride 50 MG Oral 12:00:00 AM mg affectiv e ONE [place] 50 MG Oral tablet EDT disorder, tablet For Family Tablet currently (50 mg Health hydrOXYzine 50 depressed, tota l) MG Oral tablet mild (HCC) by mouth daily Bipolar affective disorder, currently de pressed, mild (HCC) aripiprazole Aripiprazole 07/11/2017 5 Oral aborted Bipol ar Take The 5 MG Oral 5 MG Oral Tab 12:00:00 AM mg affective ONE [place] Tablet EDT disorder, tablet For Jamel monterroso Aripiprazole currently (5 mg H ealth 5 MG Oral Tab depressed, total ) mild (HCC) by mouth daily Bipolar affective disorder, currently de pressed, mild (HCC) Insurance Providers Payer name Policy type Policy ID Covered Covered green party's Policy P willow / Coverage green party ID relationship to [facility] ormation type hernandez SELF PAY [id number] Self [id number] MEDICAID INP [id number] Self [id number] A [facility] HEALTH [id number] Self [id number] FIRST HEALTH FIRST [id number] SP [id number] A [facility] Medicaid Mgd [id number] Care SLIDING FEE [id number] Self [id number] SELF PAY/NO [id number] Self [id number] SLIDE HEALTHFIRST [id number] Self [id number] HEALTHFIRST [id number] Self [id number] [place] [id number] Self [id number] HEALTHFIRST [id number] Self [id number] HEALTH FIRST [id number] SP [id number] A SLIDING FEE Uninsured [id number] [facility] Medicaid Mgd 156 156 Care Problems, Conditions, and Diagnoses Code Display Name Description Problem Type Effective Data Dates Source(s) 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 Heroin use [id number] 07/11/2017 The [place] disorder, severe, disorder, severe, 12:00:00 AM For Family in early remission in early remission EDT Health 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 [id number] 11/25/2015 The Inst [facility] (PCP) use (PCP) use 12:00:00 AM For Family disorder, severe, disorder, severe, EDT Health in early remission in early remission F14.21 Cocaine use Cocaine use [id number] 11/25/2015 The [facility] disorder, severe, disorder, severe, 12:00:00 AM For Family in early remission in early remission EDT Health F10.21 Alcohol use Alcohol use [id number] 11/25/2015 The [facility] e disorder, severe, disorder, severe, 12:00:00 AM For Family in early remission in early remission EDT Health F43.10 Post traumatic Post traumatic [id number] 04/30/2015 The In stitute stress disorder stress disorder 12:00:00 AM For Family (PTSD) (PTSD) EST Health F31.9 Bipolar I disorder Bipolar I disorder [id number] The [place] 12:00:00 AM For Family EST Health Hospital Discharge Hospital Discharge Diagnosis 0 The [place] Outreach Outreach 12:15:42 PM For Family EDT Health Emergency Room Emergency Room Diagnosis 09/18/2019 The In stitute Visit Follow Up Visit Follow Up 10:25:34 AM For Family EDT Health Transitional Care Transitional Care Diagnosis 09/10/2019 The [place] Management Management 12:38:44 PM For Family Outreach Outreach EDT Health Z11.59 Encounter for Encounter for Diagnosis 09/10/[address] [facility] screening for screening for 08:34:53 AM For Fam kiya other viral other viral EDT Health diseases diseases Z65.9 Problem related to Problem related to Diagnosis 8 The [place] unspecified unspecified 03:03:41 PM For Family psychosocial psychosocial EST Health circumstances circumstances 971 Discharge Follow Discharge Follow Diagnosis 11/01/2017 e [place] Up Up 03:58:52 PM For Family EDT Health 228 Discharge Discharge Diagnosis 10/19/2017 The [place] 11:16:36 AM For Family EDT Health F11.11 Opioid abuse, in Opioid abuse, in Diagnosis 07/12/2017 [facility] remission remission 07:41:04 AM For Family EDT Health 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 07/12/2017 The [facility] [place] abuse, in abuse, in 07:39:41 AM For Family remission remission EDT Health F14.11 Cocaine abuse, in Cocaine abuse, in Diagnosis 07/12/2017 The [place] remission remission 07:38:51 AM For Family EDT Health F10.21 Alcohol Alcohol Diagnosis 07/12/2017 The [place] dependence, in dependence, in 07:37:43 AM For F amily remission remission EDT Health F31.31 Bipolar disorder, Bipolar disorder, Diagnosis 07/11/2017 The [place] current episode current episode 10:03:50 AM For Family depressed, mild depressed, mild EDT Heal th 362 Missed Appointment Missed Appointment Diagnosis 7 The [place] 05:22:10 PM For Family EST Health Z63.4 Disappearance and Disappearance and Diagnosis 11/25/2015 The [place] of family of family 01:23:10 PM For Family member member EDT Health 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 11/25/2015 The [facility] [place] abuse, abuse, 01:06:00 PM For Family uncomplicated uncomplicated EDT Health F14.10 Cocaine abuse, Cocaine abuse, Diagnosis 11/25/2015 The In stitute uncomplicated uncomplicated 01:05:46 PM For Fam kiya EDT Health F43.10 Post-traumatic Post-traumatic Diagnosis 04/30/2015 The In stitute stress disorder, stress disorder, 11:07:19 AM F or Family unspecified unspecified EST Health F41.9 Anxiety disorder, Anxiety disorder, Diagnosis 02/19/2015 The [place] unspecified unspecified 12:30:46 PM For Family EST Health 296.51 BIPOLAR I DISORDER Bipolar affective Diagnosis The [place] MOST RECENT disorder, For Family EPISODE (OR currently Health CURRENT) DEPRESSED depressed, mild MILD (HCC) 296.51 BIPOLAR I DISORDER Bipolar affective Diagnosis The [facility] [place] MOST RECENT disorder, For Family EPISODE (OR currently Health CURRENT) DEPRESSED depressed, mild MILD (HCC) 296.51 BIPOLAR I DISORDER Bipolar affective Diagnosis The [place] MOST RECENT disorder, For Family EPISODE (OR currently Health CURRENT) DEPRESSED depressed, mild MILD (HCC) [id number] Bipolar affective Diagnosis The Ins titute disorder, For Family currently Health depressed, mild (HCC) Surgeries/Procedures Procedure Description Date Indications Data Source(s) NOVEL NOVEL Routine 09/06/2019 09/06/2019 Th e CORONAVIRUS CORONAVIRUS 12:00:00 AM [place] COVID-19 COVID-19 EDT For Jamel monterroso [facility] Health DRUG SCREEN, 10 DRUG SCREEN, 10 Routine 07/11/2017 Heroin 07/11 Post The DRUGS W/CON,UR DRUGS W/CON,UR 10:43 AM use 10:43:00 AM traumat [place] (QUEST ONLY) (QUEST ONLY) EDT disorde EDT - ic For Family r, 07/11/2017 stress Healt h mild, 10:43:00 AM disorde in EDT r early (PTSD)P remissi hencycl on idine (HCC) (PCP) Alcohol use use disorde disorde r, r, mild, severe, in in early early remissi remissi on on (HCC)Co (HCC) christopher Bipolar use affecti disorde ve r, disorde mild, r, in current early ly remissi depress on ed, (HCC)Bi mild polar (HCC) affecti Cocaine ve use disorde disorde r, r, current mild, ly in depress early ed, remissi mild on (HCC)Al (HCC) cohol Phencyc use lidine disorde (PCP) r, use severe, disorde in r, early mild, remissi in on early (HCC)He remissi roin on use ([facility]) disorde Post r, traumat mild, ic in stress early disorde remissi r on (PTSD) ([facility]) Post traumatic stress disorder (PTSD) Phencyclidine (PCP) use disorder, mild, in early remission (HCC) Cocaine use disorder, mild, in early rem ission ([facility]) Bipolar affective disorder, currently de pressed, mild (HCC) Alcohol use disorder, severe, in early r emission ([facility]) Heroin use disorder, mild, in early yajaira ssion ([facility]) CBC WITH CBC WITH Routine 07/11/2017 Bipolar 07/11/2017 Bipolar The DIFFERENTIAL DIFFERENTIAL 10:43 AM affective 10:43:00 AM affective [place] AND PLATELETS AND PLATELETS EDT disorder, EDT - di sorder, For Family currently 07/11/2017 currently H ealth depressed, 10:43:00 AM depressed , mild (HCC) EDT mild (HCC) Bipolar affective disorder, currently de pressed, mild (HCC) THYROID THYROID Routine 07/11/2017 Bipolar 07/11/2017 Bipolar Th e PANEL PANEL 10:43 AM EDT affective 10:43:00 AM affec tive [place] (T4, T3U, (T4, T3U, disorder, EDT - disorder, For Family TSH) TSH) currently 07/11/2017 currently H ealth depressed, 10:43:00 AM depressed , mild (HCC) EDT mild (HCC) Bipolar affective disorder, currently de pressed, mild (HCC) HGA1C (HGB HGA1C (HGB Routine 07/11/2017 Bipolar 07/11/2017 Bipo lar The GLYCOSYLATED) GLYCOSYLATED) 10:43 AM affective 10:43:00 AM affective [place] EDT disorder, EDT - disorder, For Family currently 07/11/2017 currently H ealth depressed, 10:43:00 AM depressed , mild (HCC) EDT mild (HCC) Bipolar affective disorder, currently de pressed, mild (HCC) URINALYSIS URINALYSIS Routine 07/11/2017 Bipolar 07/11/2017 Bipo lar The (COMPLETE) (COMPLETE) 10:43 AM affective 10:43:00 AM [facility] EDT disorder, EDT - disorder, For Family currently 07/11/2017 currently H ealth depressed, 10:43:00 AM depressed , mild (HCC) EDT mild (HCC) Bipolar affective disorder, currently de pressed, mild (HCC) LIPID LIPID Routine 07/11/2017 Bipolar 07/11/2017 Bipolar Th e PANEL PANEL 10:43 AM EDT affective 10:43:00 AM [facility] tive [place] disorder, EDT - disorder, For Family currently 07/11/2017 currently H ealth depressed, 10:43:00 AM depressed , mild (HCC) EDT mild (HCC) Bipolar affective disorder, currently de pressed, mild (HCC) COMP COMP Routine 07/11/2017 Bipolar 07/11/2017 Bipolar Th e METABOLIC METABOLIC 10:43 AM affective 10:43:00 AM [facility] PANEL PANEL EDT disorder, EDT - disorder, For Family currently 07/11/2017 currently H ealth depressed, 10:43:00 AM depressed , mild (HCC) EDT mild (HCC) Bipolar affective disorder, currently de pressed, mild (HCC) NOVEL CORONAVIRUS COVID-19 NOVEL CORONAVIRUS COVID-19 The [place] For NASOPHARYNGEAL NASOPHARYNGEAL Family Heal th ROUTINE VENIPUNCT/FINGER/HEEL ROUTINE VENIPUNCT/FINGER/HEEL The [facility] STICK-COL* STICK-COL* [facility] THYROID PANEL (T4, T3U, TSH) THYROID PANEL (T4, T3U, TSH) The [facility] CBC WITH DIFFERENTIAL AND CBC WITH DIFFERENTIAL AND The [place] For PLATELETS PLATELETS [facility] COMP METABOLIC PANEL COMP METABOLIC PANEL The [facility] HGA1C (HGB GLYCOSYLATED) HGA1C (HGB GLYCOSYLATED) The [facility] LIPID PANEL LIPID PANEL The [facility] or [facility] URINALYSIS (COMPLETE) URINALYSIS (COMPLETE) The [facility] DRUG SCREEN, 10 DRUGS DRUG SCREEN, 10 DRUGS The [place] For W/CON,UR W/CON,UR (QUEST ONLY) [facility] Results ID Date Data Source [id number] 10/14/2019 12:00:00 AM EDT [facility] Name Value Range Interpretation Code Description Data Samantha rce(s) Supporting Document(s ) 2019-nCoV [facility] RNA XXX HUMPHREY+probe- Imp This lab was ordered by [facility] and reported by [facility]. ID Date Data Source [id number] 10/05/2019 06:35:00 PM EDT [facility] Name Value Range Interpretation Description Data Sup porting Code Source(s) Document(s ) SARS [facility] coronavirus 2 RNA This lab was ordered by [facility] and reported by [facility]. ID Date Data Source [id number] 09/04/2019 12:30:00 PM EDT [facility] Name Value Range Interpretation Description Data Sup porting Code Source(s) Document(s ) SARS [facility] CORONAVIRUS 2 RNA This lab was ordered by [facility] and reported by [facility]. Procedure Social History Code Duration Value Status Description Data Source(s ) Alcohol intake 04/13/2016 Current completed Current drinker The I nstitute 12:00:00 AM EST drinker of of alcohol For Famil y alcohol (finding) Health (finding) Smoking 04/13/2016 Current every completed Current every day The [place] 12:00:00 AM EST day smoker smoker For Famil y Health Smoking 04/13/2016 Current every completed Current every day The [place] 12:00:00 AM EST day smoker smoker For Famil y Health Sex assigned at Not on file Not on file The [facility] Sex assigned at Not on file Not on file The [facility] Sex assigned at Not on file Not on file The [facility] Vital Signs ID Date Data Source UNK Name Value Range Interpretation Code Description Data Source(s) Body temperature 97.3 Fahrenheit 97.3 [employer] Diastolic blood 81 mmHg 81 mmHg [facility] Systolic blood 124 mmHg 124 mmHg [facility] Respiratory rate 18 bpm 18 bpm [facility] Heart rate 73 bpm 73 bpm [facility] Body temperature 97.4 Fahrenheit 97.4 [employer] Body weight 187 lbs 187 lbs [facility] Diastolic blood 81 mmHg 81 mmHg [facility] Systolic blood 142 mmHg 142 mmHg [facility] Respiratory rate 18 bpm 18 bpm [facility] Heart rate 76 bpm 76 bpm [facility] Body temperature 97.2 [facility] Diastolic blood 78 mmHg 78 mmHg [facility] Systolic blood 121 mmHg 121 mmHg [facility] Respiratory rate 18 bpm 18 bpm [facility] Heart rate 80 bpm 80 bpm [facility] Body temperature 97.7 [facility] Diastolic blood 80 mmHg 80 mmHg [facility] Systolic blood 132 mmHg 132 mmHg [facility] Respiratory rate 18 bpm 18 bpm [facility] Heart rate 73 bpm 73 bpm [facility] Body temperature 97.2 Fahrenheit 97.2 [facility] ID Date Data Source [id number] 11/05/2019 12:27:42 PM EDT [facility] Name Value Range Interpretation Code Description Data Source(s) Body weight Measured 187 lb 187 lb [facility] Patient Treatment Plan of Care Planned Activity Planned Date Details Description Data Source (s) Citalopram 10 MG Oral 08/07/2017 12:00:00 The [place] For Tablet [facility] Hydroxyzine Hydrochloride 07/11/2017 12:00:00 The [place] For 50 MG Oral Tablet [facility] aripiprazole 5 MG Oral 07/11/2017 12:00:00 The [place] For Tablet [facility] Citalopram 10 MG Oral 07/11/2017 12:00:00 The [place] For Tablet [facility]
[2019-12-08 13:52] VITALS: BMI 29.9
--- NOTE | 2019-12-08 13:54 | BHS.RME ---
Substance Use & Tx History - Substance Use History Alcohol Substance amount: 5 16oz cans Frequency of use: Daily Substance route: Oral Date of Last Use: 12/08/19 Heroin Substance amount: 6 bags Frequency of use: Daily Substance route: Inhalation (ex: sniffing or snorting) Date of Last Use: 12/08/19 Cocaine- Powder Substance amount: 1 gram Frequency of use: Less than 3 times per week Substance route: Smoking Date of Last Use: 12/06/19 - Last Treatment Date of last treatment: 10/05/2019 Treatment type: Substance Use Disorder (LUZ) Where was last treatment: Detox Physical/Psych/Mental Status - Behavior General Behavior: Increased activity (restlessness, agitation) Eye Contact: Normal Other Behaviors: Mannerisms - Cooperativeness Cooperativeness: Cooperative - Thinking Thought Processes: Tight Thought content: Future oriented - Physical Health Problems Is patient presently having any pain?: Yes Does patient presently have any injuries (include location): No Does patient currently have a fever: No COWS - Scale Resting Pulse: 0= [place] 80 or Below Sweatin= Chills/Flushing Restless Observation: 1= Difficult to Sit Still Pupil Size: 1= Pupils >than Normal Bone or Joint Aches: 2= Severe Diffuse Aches Runny Nose/ Eye Tearin= Runny Nose/Eyes GI Upset > 30mins: 2= Nausea/Diarrhea Tremor Observation: 2= Slight Tremor Visible Yawning Observation: 1= 1-2x During Session Anxiety or Irritability: 2=Irritable/Anxious Goose Flesh Skin: 3=Piloerection COWS Score: 17 CIWA Nausea/Vomitin Muscle Tremors: 2 Anxiety: 2 Agitation: 2 Paroxysmal Sweats: 2 Orientation: 0-Oriented Tacttile Disturbances: 2-Mild Itch/Numbness/Burn Auditory Disturbances: 1-Very Mild Visual Disturbances: 2-Mild Sensitivity Headache: 1-Very Mild CIWA-Ar Total Score: 16
--- OUTSIDE RECORDS SUMMARY | 2019-12-08 13:55 | XMS ---
:1970 Author Organization [facility] Care Team Providers Name Role Phone BORA [...] is protected by Article 27-F of the [facility] Public Health law. If you continue you may haveaccess to information: Regarding HIV / AIDS; Provided by facilities licensed or operated by the [facility] Office of Mental Health; or Provided by the [facility] Office for People With Developmental Disabilities. If such information is present, then the following [facility] mandated warning applies: This information has [...] Source(s ) Outpatient Attender: BORA 10/11/2019 The [facility] itute Janis YONI 12:15:[address] [facility] EDT Patient admitted. Inpatient Attender: GHULAM LOVE-1D 10/10/2019 [facility]:28[facility] - 10/15/2019 [facility] 10:18:00 PM EDT Patient discharged. Outpatient ST 10/10/2019 02:12:00 PM EDT - [address] [place] [address] 05:37:00 PM EDT Patient discharged. Outpatient Attender: ERI 09/18/2019 10:25:34 [facility]. Outpatient Attender: AIMEE FOUNTAIN 09/10/2019 12:38:[address] [facility] Patient admitted. Outpatient Attender: PAUL FAGAN 09/10/2019 08:34:[address] [facility] Patient admitted. Outpatient Attender: ERIC [facility] 02/19/2018 [facility] [id number] 03:03:41 PM EST - Fo r Family 02/19/2018 Health 07:07:03 PM EST Outpatient Attender: PAUL 01/24/2018 The Insti [facility] FAGAN 11:55:25 AM EST For Famil y Health Outpatient Attender: PAUL 11/01/2017 The [facility] FAGAN 03:58:52 PM EDT For Famil y Health Outpatient Attender: PAUL 10/19/2017 The [facility] GRACIA 11:16:36 AM EDT For Famil y Health Outpatient Attender: PAUL 07/14/2017 The Insti lilli FAGAN 12:00:00 AM EDT For Famil y Health Outpatient 07/11/2017 The [facility] 10:03:50 AM EDT - For Fam kiya [...] Brand Start Product Dose Route Administrative Pharmacy [facility] Indications Reaction Description Data Name Date Form Instructions Instructions Source(s) Citalopram Citalo 08/07/ 10 mg Oral active Bipolar Take ONE The 10 MG Oral pram 2018 affective tablet (1 0 [facility] Tablet Hydrob 12:00: disorder, mg total) by [...] Oral Hydrobromide 12:00:00 AM mg affective ONE [facility] Tablet 10 MG Oral EDT disorder, tablet For Family Citalopram Tab currently (10 mg He alth Hydrobromide depressed, total) 10 MG Oral mild (HCC) by Tab mouth daily Bipolar affective disorder, currently de pressed, mild (HCC) Hydroxyzine hydrOXYzine 07/11/2017 50 Oral aborted Bipolar Take The Hydrochloride 50 MG Oral 12:00:00 AM mg affectiv e ONE [facility] 50 MG Oral tablet EDT disorder, tablet For Family Tablet currently (50 mg Health hydrOXYzine 50 depressed, tota l) MG Oral tablet mild (HCC) by mouth daily Bipolar affective disorder, currently de pressed, mild (HCC) aripiprazole Aripiprazole 07/11/2017 5 Oral aborted Bipol ar Take The 5 MG Oral 5 MG Oral Tab 12:00:00 AM mg affective ONE [facility] Tablet EDT disorder, tablet For Jamel monterroso Aripiprazole currently (5 mg H ealth 5 MG Oral Tab depressed, total ) mild (HCC) by mouth daily Bipolar affective disorder, currently de pressed, mild (HCC) Insurance Providers Payer name Policy type Policy ID Covered Covered green party's Policy P willow / Coverage green party ID relationship to [facility] ormation type hernandez HEALTH FIRST [id number] SP [id number] A SELF PAY [id number] Self [id number] MEDICAID INP [id number] Self [id number] [facility] [id number] Self [id number] [facility] Medicaid Mgd [id number] Care SLIDING FEE [id number] Self [id number] SELF PAY/NO [id number] Self [id number] SLIDE HEALTHFIRST [id number] Self [id number] HEALTHFIRST [id number] Self [id number] METRO PLUS [id number] Self [id number] HEALTHFIRST [id number] Self [id number] HEALTH FIRST [id number] SP [id number] A SLIDING FEE Uninsured [id number] Mg[facility] 156 156 Care Problems, Conditions, and Diagnoses Code Display Name Description Problem Type Effective Data Dates Source(s) 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 Heroin use [id number] 07/11/2017 The [facility] disorder, severe, disorder, severe, 12:00:00 AM For Family in early remission in early remission EDT Health 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 [id number] 11/25/2015 The Inst [facility] (PCP) use (PCP) use 12:00:00 AM For Family disorder, severe, disorder, severe, EDT Health in early remission in early remission F14.21 Cocaine use Cocaine use [id number] 11/25/2015 The Institut e disorder, severe, disorder, severe, 12:00:00 AM For Family in early remission in early remission EDT Health F10.21 Alcohol use Alcohol use [id number] 11/25/2015 The Instit[facility] e disorder, severe, disorder, severe, 12:00:00 AM For Family in early remission in early remission EDT Health F43.10 Post traumatic Post traumatic [id number] 04/30/2015 The In stitute stress disorder stress disorder 12:00:00 AM For Family (PTSD) (PTSD) EST Health F31.9 Bipolar I disorder Bipolar I disorder [id number] The [facility] 12:00:00 AM For Family EST Health Hospital Discharge Hospital Discharge Diagnosis 0 The [facility] Outreach Outreach 12:15:42 PM For Family EDT Health Emergency Room Emergency Room Diagnosis 09/18/2019 The In stitute Visit Follow Up Visit Follow Up 10:25:34 AM For Family EDT Health Transitional Care Transitional Care Diagnosis 09/10/2019 The [facility] Management Management 12:38:44 PM For Family Outreach Outreach EDT Health Z11.59 Encounter for Encounter for Diagnosis 09/10/2019 The [facility] screening for screening for 08:34:53 AM For Fam kiya other viral other viral EDT Health diseases diseases Z65.9 Problem related to Problem related to Diagnosis 8 The [facility] unspecified unspecified 03:03:41 PM For Family psychosocial psychosocial EST Health circumstances circumstances 971 Discharge Follow Discharge Follow Diagnosis 11/01/2017 e [facility] Up Up 03:58:52 PM For Family EDT Health 228 Discharge Discharge Diagnosis 10/19/2017 The [facility] 11:16:36 AM For Family EDT Health F11.11 Opioid abuse, in Opioid abuse, in Diagnosis 07/12/2017 [facility] remission remission 07:41:04 AM For Family EDT Health 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 [place] abuse, in abuse, in 07:39:41 AM For Family remission remission EDT Health F14.11 Cocaine abuse, in Cocaine abuse, in Diagnosis 07/12/2017 The [facility] remission remission 07:38:51 AM For Family EDT Health F10.21 Alcohol Alcohol Diagnosis 07/12/2017 The [facility] dependence, in dependence, in 07:37:43 AM For F amily remission remission EDT Health F31.31 Bipolar disorder, Bipolar disorder, Diagnosis 07/11/2017 The [facility] current episode current episode 10:03:50 AM For Family depressed, mild depressed, mild EDT Heal th 362 Missed Appointment Missed Appointment Diagnosis 7 The [facility] 05:22:10 PM For Family EST Health Z63.4 Disappearance and Disappearance and Diagnosis 11/25/2015 The [facility] of family of family 01:23:10 PM For Family member member EDT Health 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 [place] abuse, abuse, 01:06:00 PM For Family uncomplicated uncomplicated EDT Health F14.10 Cocaine abuse, Cocaine abuse, Diagnosis 11/25/2015 The In stitute uncomplicated uncomplicated 01:05:46 PM For Fam kiya EDT Health F43.10 Post-traumatic Post-traumatic Diagnosis 04/30/2015 The In stitute stress disorder, stress disorder, 11:07:19 AM F or Family unspecified unspecified EST Health F41.9 Anxiety disorder, Anxiety disorder, Diagnosis 02/19/2015 The [facility] unspecified unspecified 12:30:46 PM For Family EST Health 296.51 BIPOLAR I DISORDER Bipolar affective Diagnosis The [facility] MOST RECENT disorder, For Family EPISODE (OR currently Health CURRENT) DEPRESSED depressed, mild MILD (HCC) 296.51 BIPOLAR I DISORDER Bipolar affective Diagnosis The [facility] MOST RECENT disorder, For Family EPISODE (OR currently Health CURRENT) DEPRESSED depressed, mild MILD (HCC) 296.51 BIPOLAR I DISORDER Bipolar affective Diagnosis The [facility] MOST RECENT disorder, For Family EPISODE (OR currently Health CURRENT) DEPRESSED depressed, mild MILD (HCC) [id number] Bipolar affective Diagnosis The Ins titute disorder, For Family currently Health depressed, mild (HCC) Surgeries/Procedures Procedure Description Date Indications Data Source(s) NOVEL NOVEL Routine 09/06/2019 09/06/2019 Th e CORONAVIRUS CORONAVIRUS 12:00:00 AM [facility] COVID-19 COVID-19 EDT For Jamel monterroso [facility] Health DRUG SCREEN, 10 DRUG SCREEN, 10 Routine 07/11/2017 Heroin 07/11 Post The DRUGS W/CON,UR DRUGS W/CON,UR 10:43 AM use 10:43:00 AM traumat [facility] (QUEST ONLY) (QUEST ONLY) EDT disorde EDT [...] current early ly remissi depress on ed, ([facility])Bi mild polar (HCC) affecti Cocaine ve use disorde disorde r, r, current mild, ly in depress early ed, remissi mild on (HCC)Al (HCC) cohol Phencyc use lidine disorde (PCP) r, use severe, disorde in r, early mild, remissi in on early (HCC)He remissi roin on use ([facility]) disorde Post r, traumat mild, ic in stress early disorde remissi r on (PTSD) ([facility]) Post traumatic stress disorder (PTSD) Phencyclidine (PCP) use disorder, mild, in early remission (HCC) Cocaine use disorder, mild, in early rem ission ([facility]) Bipolar affective disorder, currently de pressed, mild (HCC) Alcohol use disorder, severe, in early r emission ([facility]) Heroin use disorder, mild, in early yajaira ssion ([facility]) CBC WITH CBC WITH Routine 07/11/2017 Bipolar 07/11/2017 Bipolar The DIFFERENTIAL DIFFERENTIAL 10:43 AM affective 10:43:00 AM affective [facility] AND PLATELETS AND PLATELETS EDT disorder, EDT - di sorder, For Family currently 07/11/2017 currently H ealth depressed, 10:43:00 AM depressed , mild (HCC) EDT mild (HCC) Bipolar affective disorder, currently de pressed, mild (HCC) THYROID THYROID Routine 07/11/2017 Bipolar 07/11/2017 Bipolar Th e PANEL PANEL 10:43 AM EDT affective 10:43:00 AM affec tive [facility] (T4, T3U, (T4, T3U, disorder, EDT - disorder, For Family TSH) TSH) currently 07/11/2017 currently H ealth depressed, 10:43:00 AM depressed , mild (HCC) EDT mild (HCC) Bipolar affective disorder, currently de pressed, mild (HCC) HGA1C (HGB HGA1C (HGB Routine 07/11/2017 Bipolar 07/11/2017 Bipo lar The GLYCOSYLATED) GLYCOSYLATED) 10:43 AM affective 10:43:00 AM affective [facility] EDT disorder, EDT - disorder, For Family currently 07/11/2017 currently H ealth depressed, 10:43:00 AM depressed , mild (HCC) EDT mild (HCC) Bipolar affective disorder, currently de pressed, mild (HCC) URINALYSIS URINALYSIS Routine 07/11/2017 Bipolar 07/11/2017 Bipo lar The (COMPLETE) (COMPLETE) 10:43 AM affective 10:43:00 AM [facility] EDT disorder, EDT - disorder, For Family currently 07/11/2017 currently H ealth depressed, 10:43:00 AM depressed , mild (HCC) EDT mild (HCC) Bipolar affective disorder, currently de pressed, mild (HCC) LIPID LIPID Routine 07/11/2017 Bipolar 07/11/2017 Bipolar Th e PANEL PANEL 10:43 AM EDT affective 10:43:00 AM [facility] tive [facility] disorder, EDT - disorder, For Family currently 07/11/2017 currently H ealth depressed, 10:43:00 AM depressed , mild (HCC) EDT mild (HCC) Bipolar affective disorder, currently de pressed, mild (HCC) COMP COMP Routine 07/11/2017 Bipolar 07/11/2017 Bipolar Th e METABOLIC METABOLIC 10:43 AM affective 10:43:00 AM [facility] PANEL PANEL EDT disorder, EDT - disorder, For Family currently 07/11/2017 currently H ealth depressed, 10:43:00 AM depressed , mild (HCC) EDT mild (HCC) Bipolar affective disorder, currently de pressed, mild (HCC) NOVEL CORONAVIRUS COVID-19 NOVEL CORONAVIRUS COVID-19 The [facility] For NASOPHARYNGEAL NASOPHARYNGEAL Family Heal th ROUTINE VENIPUNCT/FINGER/HEEL ROUTINE VENIPUNCT/FINGER/HEEL [facility] STICK-COL* STICK-COL* [facility] THYROID PANEL (T4, T3U, TSH) THYROID PANEL (T4, T3U, TSH) [facility] CBC WITH DIFFERENTIAL AND CBC WITH DIFFERENTIAL AND The [facility] For PLATELETS PLATELETS [facility] COMP METABOLIC PANEL COMP METABOLIC PANEL [facility] HGA1C (HGB GLYCOSYLATED) HGA1C (HGB GLYCOSYLATED) The [facility] LIPID PANEL LIPID PANEL The [facility] or [facility] URINALYSIS (COMPLETE) URINALYSIS (COMPLETE) The [facility] DRUG SCREEN, 10 DRUGS DRUG SCREEN, 10 DRUGS The [facility] For W/CON,UR W/CON,UR (QUEST ONLY) [facility] Results ID Date Data Source [id number] 10/14/2019 12:00:00 AM EDT [facility] Name Value Range Interpretation Code Description Data Samantha rce(s) Supporting Document(s ) 2019-nCoV [facility] RNA XXX HUMPHREY+probe- Imp This lab was ordered by [facility] and reported by [employer]. ID Date Data Source [id number] 10/05/2019 06:35:00 PM EDT [facility] Name Value Range Interpretation Description Data Sup porting Code Source(s) Document(s ) SARS [facility] coronavirus 2 RNA This lab was ordered by [facility] and reported by [facility]. ID Date Data Source [id number] 09/04/2019 12:30:00 PM EDT [facility] Name Value Range Interpretation Description Data Sup porting Code Source(s) Document(s ) SARS [facility] CORONAVIRUS 2 RNA This lab was ordered by [facility] and reported by [facility]. Procedure Social History Code Duration Value Status Description Data Source(s ) Alcohol intake 04/13/2016 Current completed Current drinker The I nstitute 12:00:00 AM EST drinker of of alcohol For Famil y alcohol (finding) Health (finding) Smoking 04/13/2016 Current every completed Current every day The [facility] 12:00:00 AM EST day smoker smoker For Famil y Health Smoking 04/13/2016 Current every completed Current every day The [facility] 12:00:00 AM EST day smoker smoker For Famil y Health Sex assigned at Not on file Not on file [facility] Sex assigned at Not on file Not on file [facility] Sex assigned at Not on file Not on file [facility] Vital Signs ID Date Data Source UNK Name Value Range Interpretation Code Description Data Source(s) Body temperature 97.3 Fahrenheit 97.3 [facility] Diastolic blood 81 mmHg 81 mmHg [facility] Systolic blood 124 mmHg 124 mmHg [facility] Respiratory rate 18 bpm 18 bpm [facility] Heart rate 73 bpm 73 bpm [facility] Body temperature 97.4 Fahrenheit 97.4 [facility] Body weight 187 lbs 187 lbs [facility] Diastolic blood 81 mmHg 81 mmHg [facility] Systolic blood 142 mmHg 142 mmHg [facility] Respiratory rate 18 bpm 18 bpm [facility] Heart rate 76 bpm 76 bpm [facility].2 [facility] Di[facility] blood 78 mmHg 78 mmHg [facility] Systolic blood 121 mmHg 121 mmHg [facility] Respiratory rate 18 bpm 18 bpm [facility] Heart rate 80 bpm 80 bpm [facility] Body temperature 97.7 [facility] Diastolic blood 80 mmHg 80 mmHg [facility] Systolic blood 132 mmHg 132 mmHg [facility] Respiratory rate 18 bpm 18 bpm [facility] Heart rate 73 bpm 73 bpm [facility] Body temperature 97.2 Fahrenheit 97.2 [facility] ID Date Data Source [id number] 11/05/2019 12:27:42 PM EDT [facility] Name Value Range Interpretation Code Description Data Source(s) Body weight Measured 187 lb 187 lb [facility] Patient Treatment Plan of Care Planned Activity Planned Date Details Description Data Source (s) Citalopram 10 MG Oral 08/07/2017 12:00:00 The [facility] For Tablet AM [facility] Hydroxyzine Hydrochloride 07/11/2017 12:00:00 The [facility] For 50 MG Oral Tablet AM [facility] aripiprazole 5 MG Oral 07/11/2017 12:00:00 The [facility] For Tablet AM [facility] Citalopram 10 MG Oral 07/11/2017 12:00:00 The [facility] For Tablet [facility]
[2019-12-08] MEDS ORDERED: MAGNESIUM CITRATE 300 ML BOTTLE PO PRN (13:58)
[2019-12-08] MEDS ORDERED: IBUPROFEN 400 MG TABLET (FP) PO PRN (13:58)
[2019-12-08] MEDS ORDERED: BISMUTH SUBSALICYLATE 524 MG/30 ML UD PO PRN (13:58)
[2019-12-08] MEDS ORDERED: chlordiazePOXIDE HCL 25 MG CAPSULE PO ONE (13:58)
[2019-12-08] MEDS ORDERED: NALOXONE HCL 0.4 MG/ML VIAL IM PRN (13:58)
[2019-12-08] MEDS ORDERED: MENTHOL/PHENOL 1 EACH UD MM PRN (13:58)
[2019-12-08] MEDS ORDERED: METHOCARBAMOL 500 MG TABLET PO PRN (13:58)
[2019-12-08] MEDS ORDERED: ACETAMINOPHEN 325 MG TABLET (FP) PO PRN (13:58)
[2019-12-08] MEDS ORDERED: cloNIDine HCL 0.1 MG TABLET PO PRN (13:58)
[2019-12-08] MEDS ORDERED: MAG HYDROX/AL HYDROX/SIMETH 30 ML UNIT-DOSE CUP PO PRN (13:58)
[2019-12-08] MEDS ORDERED: METHADONE HCL 10 MG TABLET (FOR DETOX USE ONLY) PO ONE (13:58)
[2019-12-08] MEDS ORDERED: chlordiazePOXIDE HCL 25 MG CAPSULE PO PRN (13:58)
[2019-12-08] MEDS ORDERED: MAGNESIUM HYDROX 2400MG/30ML ORAL SUSPENSION 30 ML CUP PO PRN (13:58)
[2019-12-08] MEDS ORDERED: ALBUTEROL SO4 HFA INHALER IH PRN (14:01)
--- NOTE | 2019-12-08 14:03 | HP ---
COWS - Scale Resting Pulse: 0= [place] 80 or Below Sweatin= Chills/Flushing Restless Observation: 1= Difficult to Sit Still Pupil Size: 1= Pupils >than Normal Bone or Joint Aches: 2= Severe Diffuse Aches Runny Nose/ Eye Tearin= Runny Nose/Eyes GI Upset > 30mins: 2= Nausea/Diarrhea Tremor Observation: 2= Slight Tremor Visible Yawning Observation: 1= 1-2x During Session Anxiety or Irritability: 2=Irritable/Anxious Goose Flesh Skin: 3=Piloerection COWS Score: 17 CIWA Score Nausea/Vomitin Muscle Tremors: 2 Anxiety: 2 Agitation: 2 Paroxysmal Sweats: 2 Orientation: 0-Oriented Tacttile Disturbances: 2-Mild Itch/Numbness/Burn Auditory Disturbances: 1-Very Mild Visual Disturbances: 2-Mild Sensitivity Headache: 1-Very Mild CIWA-Ar Total Score: 16 - Admission Criteria OASAS Guidelines: Admission for Medically Managed Detox: Requires at least one of the followin. CIWA greater than 12 2. Seizures within the past 24 hours 3. Delirium tremens within the past 24 hours 4. Hallucinations within the past 24 hours 5. Acute intervention needed for co occurring medical disorder 6. Acute intervention needed for co occurring psychiatric disorder 7. Severe withdrawal that cannot be handled at a lower level of care (continued vomiting, continued diarrhea, abnormal vital signs) requiring intravenous medication and/or fluids 8. Patient presents the following: CIWA greater than 12 Admission Criteria Met: Admission criteria met Admitting History and Physical - Past Medical History Psych: Yes: Anxiety, Depression Endocrine: Yes: Diabetes Mellitus - Smoking History Smoking history: Current every day smoker Have you smoked in the past 12 months: Yes Aproximately how many cigarettes per day: 20 - Alcohol/Substance Use Hx Alcohol Use: Yes History of Substance Use: reports: Cocaine, Heroin Date of Last Use: 10/05/19 - Social History ADL: Support Services Occupation: unemployed History of Recent Travel: No Admission ROS S - HPI Chief Complaint: "I am hoping this is my last time, I want to stay clean, I am tired of it, I am just exhausted, I want to go to rehab too" Allergies/Adverse Reactions: Allergies Allergy/AdvReac Type Severity Reaction Status Date / Time No Known Allergies Allergy Verified 10/04/20 13:55 History of Present Illness: 49 year old male with alcoholism and opioid use presents for detox with possible rehab after treatment. He denies seizures, blackouts or overdose. Exam Limitations: No Limitations - Ebola screening Have you traveled outside of the country in the last 21 days: No Have you had contact with anyone from an Ebola affected area: No Have you been sick,other than usual withdrawal symptoms: No Do you have a fever: No - Review of Systems Constitutional: Chills, Weight Stable EENT: reports: Nose Congestion Respiratory: reports: No Symptoms reported Cardiac: reports: No Symptoms Reported GI: reports: Nausea, Abdominal cramping : reports: No Symptoms Reported Musculoskeletal: reports: Muscle Weakness Integumentary: reports: Sweating Neuro: reports: Headache, Numbness, Tremors Endocrine: reports: No Symptoms Reported Hematology: reports: No Symptoms Reported Psychiatric: reports: Anxious, Depressed Other Systems: Reviewed and Negative Patient History - Patient Medical History Hx Anemia: No Hx Asthma: No Hx Chronic Obstructive Pulmonary Disease (COPD): Yes Hx Cancer: No Hx Cardiac Disorders: No Hx Congestive Heart Failure: No Hx Hypertension: No Hx Hypercholesterolemia: No Hx Pacemaker: No HX Cerebrovascular Accident: No Hx Seizures: No Hx Dementia: No Hx Diabetes: Yes Hx Gastrointestinal Disorders: No Hx Liver Disease: No Hx Genitourinary Disorders: No Hx Sexually Transmitted Disorders: Yes (remote hx) Hx Renal Disease (ESRD): No Hx Thyroid Disease: No Hx Human Immunodeficiency Virus (HIV): No Hx Hepatitis C: No Hx Depression: Yes Hx Suicide Attempt: Yes (remote hx) Hx Bipolar Disorder: Yes Hx Schizophrenia: No Other Medical History: Glaucoma - Patient Surgical History Past Surgical History: Yes Hx Neurologic Surgery: No Hx Cataract Extraction: No Hx Cardiac Surgery: No Hx Lung Surgery: No Hx Breast Surgery: No Hx Breast Biopsy: No Hx Abdominal Surgery: No Hx Appendectomy: No Hx Cholecystectomy: No Hx Genitourinary Surgery: No Hx Orthopedic Surgery: Yes (R hand sx 2007 ) Anesthesia Reaction: No - PPD History Previous Implant?: Yes Documented Results: Negative w/proof Implanted On Prior [facility] Admission?: Yes Date: 12/02/18 Results: neg 0 mm PPD to be Administered?: Yes - Smoking Cessation Smoking history: Current every day smoker Have you smoked in the past 12 months: Yes Aproximately how many cigarettes per day: 20 Cigars Per Day: 0 Hx Chewing Tobacco Use: No Initiated information on smoking cessation: Yes 'Breaking Loose' booklet given: 12/08/19 Admission Physical Exam [facility] - Vital Signs Vital Signs: Vital Signs - 24 hr 12/08/19 13:50 Temperature 97.3 F L Pulse Rate 79 Respiratory 18 Rate Blood Pressure 138/82 - Physical General Appearance: Yes: Mild Distress HEENTM: Yes: Hearing grossly Normal, Normocephalic, Normal Voice Respiratory: Yes: Chest Non-Tender, Lungs Clear, Normal Breath Sounds, No Respiratory Distress, No Accessory Muscle Use Neck: Yes: No masses,lesions,Nodules, Supple Breast: Yes: Breast Exam Deferred Cardiology: Yes: Regular Rhythm, Regular Rate Abdominal: Yes: Normal Bowel Sounds, Non Tender, Soft Genitourinary: Yes: Within Normal Limits Back: Yes: Normal Inspection Musculoskeletal: Yes: full range of Motion, Muscle Pain, Muscle weakness Extremities: Yes: Normal Range of Motion, Tremors Neurological: Yes: communications director II-XII NML intact, Fully Oriented, Alert, Normal Mood/Affect, Normal Response Integumentary: Yes: Clammy, Moist Lymphatic: Yes: Within Normal Limits - Diagnostic (1) Nicotine dependence with withdrawal Current Visit: Yes Status: Acute (2) Opioid dependence with withdrawal Current Visit: Yes Status: Acute (3) Alcohol dependence with withdrawal, uncomplicated Current Visit: Yes Status: Acute (4) Cocaine dependence Current Visit: Yes Status: Chronic Qualifiers: Substance use status: uncomplicated Qualified Code(s): F14.20 - Cocaine dependence, uncomplicated (5) Diabetes 1.5, managed as type 2 Current Visit: Yes Status: 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, indeterminate stage Current Visit: Yes Status: Chronic Qualifiers: Laterality: right Qualified Code(s): H40.51X4 - Glaucoma secondary to other eye disorders, right eye, indeterminate stage Cleared for Admission [facility] - Detox or Rehab [facility] Level of Care: Medically Managed Detox Regimen/Protocol: Methadone/Librium Claeared for Rehab Admission: No Breathalyzer - Breathalyzer Breathalyzer: 0 Urine Drug Screen - Test Device Lot number: [id number] Expiration date: 06/11/21 - Control Is test valid?: Yes - Results Drug screen NEGATIVE: No Urine drug screen results: ABRAHAN-Cocaine, FEN-Fentanyl, MOP-Opiates Inpatient Rehab Admission - Rehab Decision to Admit Inpatient rehab admission?: No
[2019-12-08] MEDS: chlordiazePOXIDE HCL 25 MG CAPSULE PO SCH ×2 (18:11→22:43)
[2019-12-08] MEDS: glyBURIDE 5 MG TABLET PO SCH (18:12)
[2019-12-08] MEDS: NICOTINE POLACRILEX 2 MG GUM BUC PRN ×2 (18:14→22:44)
[2019-12-08] MEDS: MELATONIN 5 MG TABLETS PO SCH (22:43)
[2019-12-08] MEDS: THIAMINE HCL 100 MG TABLET (FP) PO SCH (22:43)
[2019-12-09] MEDS: LATANOPROST 0.005% OPHTH SOLN 2.5ML BOTTLE OD SCH ×2 (00:27→22:35)
[2019-12-09] MEDS: chlordiazePOXIDE HCL 25 MG CAPSULE PO SCH ×4 (05:01→22:34)
[2019-12-09] MEDS: glyBURIDE 5 MG TABLET PO SCH ×2 (06:41→18:12)
[2019-12-09] MEDS: INSULIN SLIDING SCALE (NOVOLOG) 1 VIAL SQ SCH ×2 (06:42→18:13)
[2019-12-09] MEDS ORDERED: METHADONE HCL 5 MG TABLET (FOR DETOX USE ONLY) ONE (09:06)
[2019-12-09] MEDS ORDERED: METHADONE HCL 10 MG TABLET (FOR DETOX USE ONLY) ONE (09:07)
[2019-12-09] MEDS ORDERED: METHADONE (DETOX) 20 MG, METHADONE (DETOX) 5 MG PO ONE (10:00)
[2019-12-09] MEDS: NICOTINE 7 MG/24 HOURS TOPICAL PATCH TD SCH (10:16)
[2019-12-09] MEDS: PRENATAL VITAMINS W/ FOLIC ACID TABLET (FP) PO SCH (10:18)
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
[2019-12-09 10:46] LABS: HEMATOCRIT 37.1 % (35.4-49); HEMOGLOBIN 12.6 GM/dL (11.7-16.9); MCH 30.9 pg (25.7-33.7); MCHC 34.1 g/dl (32.0-35.9); MEAN CELL VOLUME 90.8 fl (80-96); MEAN PLT VOLUME 8.9 fl (7.5-11.1); PLATELET COUNT 294 K/MM3 (134-434); RBC 4.08 M/mm3 (4.00-5.60); WHITE BLOOD COUNT 6.2 K/mm3 (4.0-10.0)
[2019-12-09 11:04] LABS: BLOOD UREA NITROGEN 12.6 mg/dL (7-18); CREATININE 0.7 mg/dL (0.55-1.3)
[2019-12-09 11:06] LABS: BILIRUBIN,TOTAL 0.4 mg/dL (0.2-1); CALCIUM 8.5 mg/dL (8.5-10.1); TOT PROT 5.9 g/dl (6.4-8.2)
--- NOTE | 2019-12-09 11:50 | PN ---
[facility] CIWA - CIWA Score Nausea/Vomitin-No Nausea/No Vomiting Muscle Tremors: 3 Anxiety: 2 Agitation: 2 Paroxysmal Sweats: 2 Orientation: 0-Oriented Tacttile Disturbances: 0-None Auditory Disturbances: 0-None Visual Disturbances: 0-None Headache: 0-None Present CIWA-Ar Total Score: 9 BHS COWS - Scale Resting Pulse: 0= [place] 80 or Below Sweatin= Chills/Flushing Restless Observation: 1= Difficult to Sit Still Pupil Size: 0= Normal to Room Light Bone or Joint Aches: 2= Severe Diffuse Aches Runny Nose/ Eye Tearin= Runny Nose/Eyes GI Upset > 30mins: 2= Nausea/Diarrhea Tremor Observation of Outstretched Hands: 0= None Yawning Observation: 0= None Anxiety or Irritability: 1=Feels Anxious/Irritable Goose Flesh Skin: 0=Smooth Skin COWS Score: 9 BHS Progress Note (SOAP) Subjective: sweats interrupted sleep toothache Objective: 12/09/19 11:49 Vital Signs Temperature 98.3 F 12/09/19 09:40 Pulse Rate 62 12/09/19 09:40 Respiratory Rate 16 12/09/19 09:40 Blood Pressure 118/73 12/09/19 09:40 O2 Sat by Pulse Oximetry (%) 100 12/09/19 09:40 Laboratory Tests 12/08/19 12/09/19 12/09/19 14:16 05:09 07:30 WBC RBC Hgb Hct MCV MCH MCHC RDW Plt Count MPV Sodium Potassium Chloride Carbon Dioxide Anion Gap BUN Creatinine Est GFR (CKD-EPI)AfAm Est GFR (CKD-EPI)NonAf POC Glucometer 203 127 Random Glucose Calcium Total Bilirubin AST ALT Alkaline Phosphatase Total Protein Albumin Syphilis Serology Non-reactive 12/09/19 12/09/19 07:30 07:30 WBC 6.2 RBC 4.08 Hgb 12.6 Hct 37.1 MCV 90.8 MCH 30.9 MCHC 34.1 RDW 14.0 Plt Count 294 MPV 8.9 Sodium 141 Potassium 4.0 Chloride 109 H Carbon Dioxide 27 Anion Gap 5 L BUN 12.6 Creatinine 0.7 Est GFR (CKD-EPI)AfAm 127.53 Est GFR (CKD-EPI)NonAf 110.04 POC Glucometer Random Glucose 82 Calcium 8.5 Total Bilirubin 0.4 AST 8 L ALT 15 Alkaline Phosphatase 50 Total Protein 5.9 L Albumin 3.0 L Syphilis Serology labs noted aaox3 ambulating no acute distress Assessment: 12/09/19 11:50 withdrawals Plan: continue detox lidocaine s/s prn motrin 800mg prn
[2019-12-09] MEDS: IBUPROFEN 400 MG TABLET (FP) PO PRN ×2 (12:07→18:14)
[2019-12-09] MEDS: CITALOPRAM HYDROBROMIDE 10 MG TABLET PO SCH (12:50)
[2019-12-09] MEDS: ACETAMINOPHEN 325 MG TABLET (FP) PO PRN (20:44)
[2019-12-09] MEDS: SUVOREXANT 10 MG TABLET PO PRN (22:34)
[2019-12-09] MEDS: THIAMINE HCL 100 MG TABLET (FP) PO SCH (22:35)
[2019-12-09] MEDS: MELATONIN 5 MG TABLETS PO SCH (22:35)
[2019-12-10] MEDS: chlordiazePOXIDE HCL 25 MG CAPSULE PO SCH ×4 (07:05→22:24)
[2019-12-10] MEDS: glyBURIDE 5 MG TABLET PO SCH ×2 (07:06→17:03)
[2019-12-10] MEDS: INSULIN SLIDING SCALE (NOVOLOG) 1 VIAL SQ SCH ×2 (07:09→18:07)
[2019-12-10] MEDS ORDERED: METHADONE HCL 10 MG TABLET (FOR DETOX USE ONLY) PO ONE (10:00)
[2019-12-10] MEDS: NICOTINE 7 MG/24 HOURS TOPICAL PATCH TD SCH (10:11)
[2019-12-10] MEDS: CITALOPRAM HYDROBROMIDE 10 MG TABLET PO SCH (10:13)
[2019-12-10] MEDS: PRENATAL VITAMINS W/ FOLIC ACID TABLET (FP) PO SCH (10:14)
--- NOTE | 2019-12-10 11:17 | PN ---
S CIWA - CIWA Score Nausea/Vomitin-No Nausea/No Vomiting Muscle Tremors: 2 Anxiety: 1-Mildly Anxious Agitation: 2 Paroxysmal Sweats: 1-Minimal Palms Moist Orientation: 0-Oriented Tacttile Disturbances: 0-None Auditory Disturbances: 0-None Visual Disturbances: 0-None Headache: 0-None Present CIWA-Ar Total Score: 6 BHS COWS - Scale Resting Pulse: 0= [place] 80 or Below Sweatin= Chills/Flushing Restless Observation: 1= Difficult to Sit Still Pupil Size: 0= Normal to Room Light Bone or Joint Aches: 1= Mild Discomfort Runny Nose/ Eye Tearin= None GI Upset > 30mins: 0= None Tremor Observation of Outstretched Hands: 1= Tremor [place], Not Seen Yawning Observation: 0= None Anxiety or Irritability: 1=Feels Anxious/Irritable Goose Flesh Skin: 0=Smooth Skin COWS Score: 5 BHS Progress Note (SOAP) Subjective: sweats toothache, i forgot to ask the nurse for the lidocaine yesterday Objective: 12/10/19 11:16 Vital Signs Temperature 97.1 F L 12/10/19 08:46 Pulse Rate 69 12/10/19 08:46 Respiratory Rate 16 12/10/19 08:46 Blood Pressure 121/71 12/10/19 08:46 O2 Sat by Pulse Oximetry (%) 100 12/10/19 08:46 Laboratory Tests 12/08/19 12/08/19 12/09/19 14:00 14:16 05:09 WBC RBC Hgb Hct MCV MCH MCHC RDW Plt Count MPV Sodium Potassium Chloride Carbon Dioxide Anion Gap BUN Creatinine Est GFR (CKD-EPI)AfAm Est GFR (CKD-EPI)NonAf POC Glucometer 203 127 Random Glucose Calcium Total Bilirubin AST ALT Alkaline Phosphatase Total Protein Albumin Syphilis Serology COVID-19 (HUMPHREY) Not detected 12/09/19 12/09/19 12/09/19 07:30 07:30 07:30 WBC 6.2 RBC 4.08 Hgb 12.6 Hct 37.1 MCV 90.8 MCH 30.9 MCHC 34.1 RDW 14.0 Plt Count 294 MPV 8.9 Sodium 141 Potassium 4.0 Chloride 109 H Carbon Dioxide 27 Anion Gap 5 L BUN 12.6 Creatinine 0.7 Est GFR (CKD-EPI)AfAm 127.53 Est GFR (CKD-EPI)NonAf 110.04 POC Glucometer Random Glucose 82 Calcium 8.5 Total Bilirubin 0.4 AST 8 L ALT 15 Alkaline Phosphatase 50 Total Protein 5.9 L Albumin 3.0 L Syphilis Serology Non-reactive COVID-19 (HUMPHREY) 12/09/19 12/10/19 16:47 07:04 WBC RBC Hgb Hct MCV MCH MCHC RDW Plt Count MPV Sodium Potassium Chloride Carbon Dioxide Anion Gap BUN Creatinine Est GFR (CKD-EPI)AfAm Est GFR (CKD-EPI)NonAf POC Glucometer 126 85 Random Glucose Calcium Total Bilirubin AST ALT Alkaline Phosphatase Total Protein Albumin Syphilis Serology COVID-19 (HUMPHREY) labs noted aaox3 ambulating no acute distress Assessment: 12/10/19 11:16 withdrawals Plan: continue detox encouraged pt to ask for motrin and lidocaine s/s prn
[2019-12-10] MEDS: IBUPROFEN 400 MG TABLET (FP) PO PRN (17:08)
[2019-12-10] MEDS: ACETAMINOPHEN 325 MG TABLET (FP) PO PRN (20:37)
[2019-12-10] MEDS: LATANOPROST 0.005% OPHTH SOLN 2.5ML BOTTLE OD SCH (22:24)
[2019-12-10] MEDS: MELATONIN 5 MG TABLETS PO SCH (22:24)
[2019-12-10] MEDS: THIAMINE HCL 100 MG TABLET (FP) PO SCH (22:24)
[2019-12-11] MEDS ORDERED: chlordiazePOXIDE HCL 10 MG CAPSULE PO PRN
[2019-12-11] MEDS: IBUPROFEN 400 MG TABLET (FP) PO PRN ×2 (05:04→17:25)
[2019-12-11] MEDS: chlordiazePOXIDE HCL 10 MG CAPSULE PO SCH ×4 (05:07→22:21)
[2019-12-11] MEDS: glyBURIDE 5 MG TABLET PO SCH ×2 (06:38→17:25)
[2019-12-11] MEDS: INSULIN SLIDING SCALE (NOVOLOG) 1 VIAL SQ SCH (08:09)
[2019-12-11] MEDS ORDERED: METHADONE HCL 10 MG TABLET (FOR DETOX USE ONLY) ONE (08:40)
[2019-12-11] MEDS ORDERED: METHADONE HCL 5 MG TABLET (FOR DETOX USE ONLY) ONE (08:40)
[2019-12-11] MEDS: LIDOCAINE VISCOUS 2% ORAL/TOP 20 ML UNIT-DOSE CUP MM PRN (09:24)
[2019-12-11] MEDS ORDERED: METHADONE (DETOX) 10 MG, METHADONE (DETOX) 5 MG PO ONE (10:00)
[2019-12-11] MEDS: CITALOPRAM HYDROBROMIDE 10 MG TABLET PO SCH (10:11)
[2019-12-11] MEDS: PRENATAL VITAMINS W/ FOLIC ACID TABLET (FP) PO SCH (10:14)
[2019-12-11] MEDS: NICOTINE 7 MG/24 HOURS TOPICAL PATCH TD SCH (10:15)
--- NOTE | 2019-12-11 12:50 | PN ---
S CIWA - CIWA Score Nausea/Vomitin-No Nausea/No Vomiting Muscle Tremors: 2 Anxiety: 1-Mildly Anxious Agitation: 1-Slight > Activity Paroxysmal Sweats: 1-Minimal Palms Moist Orientation: 0-Oriented Tacttile Disturbances: 0-None Auditory Disturbances: 0-None Visual Disturbances: 0-None Headache: 0-None Present CIWA-Ar Total Score: 5 BHS COWS - Scale Resting Pulse: 0= [place] 80 or Below Sweatin= Chills/Flushing Restless Observation: 1= Difficult to Sit Still Pupil Size: 0= Normal to Room Light Bone or Joint Aches: 1= Mild Discomfort Runny Nose/ Eye Tearin= None GI Upset > 30mins: 0= None Tremor Observation of Outstretched Hands: 0= None Yawning Observation: 0= None Anxiety or Irritability: 1=Feels Anxious/Irritable Goose Flesh Skin: 0=Smooth Skin COWS Score: 4 BHS Progress Note (SOAP) Subjective: restless agitation interrupted sleep sweats I dont want insulin. I am not on insulin at home only oral diabetic medication Objective: 12/11/19 12:48 Vital Signs Temperature 98.2 F 12/11/19 08:44 Pulse Rate 69 12/11/19 08:44 Respiratory Rate 18 12/11/19 08:44 Blood Pressure 123/68 12/11/19 08:44 O2 Sat by Pulse Oximetry (%) 99 12/11/19 08:44 Laboratory Tests 12/08/19 12/08/19 12/09/19 14:00 14:16 05:09 WBC RBC Hgb Hct MCV MCH MCHC RDW Plt Count MPV Sodium Potassium Chloride Carbon Dioxide Anion Gap BUN Creatinine Est GFR (CKD-EPI)AfAm Est GFR (CKD-EPI)NonAf POC Glucometer 203 127 Random Glucose Calcium Total Bilirubin AST ALT Alkaline Phosphatase Total Protein Albumin Syphilis Serology COVID-19 (HUMPHREY) Not detected 12/09/19 12/09/19 12/09/19 07:30 07:30 07:30 WBC 6.2 RBC 4.08 Hgb 12.6 Hct 37.1 MCV 90.8 MCH 30.9 MCHC 34.1 RDW 14.0 Plt Count 294 MPV 8.9 Sodium 141 Potassium 4.0 Chloride 109 H Carbon Dioxide 27 Anion Gap 5 L BUN 12.6 Creatinine 0.7 Est GFR (CKD-EPI)AfAm 127.53 Est GFR (CKD-EPI)NonAf 110.04 POC Glucometer Random Glucose 82 Calcium 8.5 Total Bilirubin 0.4 AST 8 L ALT 15 Alkaline Phosphatase 50 Total Protein 5.9 L Albumin 3.0 L Syphilis Serology Non-reactive COVID-19 (HUMPHREY) 12/09/19 12/10/19 12/10/19 16:47 07:04 16:55 WBC RBC Hgb Hct MCV MCH MCHC RDW Plt Count MPV Sodium Potassium Chloride Carbon Dioxide Anion Gap BUN Creatinine Est GFR (CKD-EPI)AfAm Est GFR (CKD-EPI)NonAf POC Glucometer 126 85 211 Random Glucose Calcium Total Bilirubin AST ALT Alkaline Phosphatase Total Protein Albumin Syphilis Serology COVID-19 (HUMPHREY) 12/11/19 05:06 WBC RBC Hgb Hct MCV MCH MCHC RDW Plt Count MPV Sodium Potassium Chloride Carbon Dioxide Anion Gap BUN Creatinine Est GFR (CKD-EPI)AfAm Est GFR (CKD-EPI)NonAf POC Glucometer 267 Random Glucose Calcium Total Bilirubin AST ALT Alkaline Phosphatase Total Protein Albumin Syphilis Serology COVID-19 (HUMPHREY) aaox3 ambulating no acute distress Assessment: 12/11/19 12:48 withdrawals Plan: continue detox glucose is being monitored and in controlled encourage water intake
[2019-12-11] MEDS: THIAMINE HCL 100 MG TABLET (FP) PO SCH (22:20)
[2019-12-11] MEDS: SUVOREXANT 10 MG TABLET PO PRN (22:20)
[2019-12-11] MEDS: LATANOPROST 0.005% OPHTH SOLN 2.5ML BOTTLE OD SCH (22:24)
[2019-12-11] MEDS: MELATONIN 5 MG TABLETS PO SCH (22:25)
[2019-12-11] MEDS: ACETAMINOPHEN 325 MG TABLET (FP) PO PRN (22:32)
[2019-12-12] MEDS: IBUPROFEN 400 MG TABLET (FP) PO PRN ×3 (01:24→15:49)
[2019-12-12] MEDS: LIDOCAINE VISCOUS 2% ORAL/TOP 20 ML UNIT-DOSE CUP MM PRN (01:28)
[2019-12-12] MEDS: chlordiazePOXIDE HCL 10 MG CAPSULE PO SCH ×2 (06:45→17:39)
[2019-12-12] MEDS: glyBURIDE 5 MG TABLET PO SCH ×2 (06:45→17:39)
[2019-12-12] MEDS: ACETAMINOPHEN 325 MG TABLET (FP) PO PRN (06:48)
[2019-12-12] MEDS ORDERED: AMOX TR/POT CLAV 500MG/125MG TABLETS (FP) PO ONE (08:44)
[2019-12-12] MEDS ORDERED: METHADONE HCL 10 MG TABLET (FOR DETOX USE ONLY) PO ONE (10:00)
[2019-12-12] MEDS: NICOTINE 7 MG/24 HOURS TOPICAL PATCH TD SCH (10:06)
[2019-12-12] MEDS: PRENATAL VITAMINS W/ FOLIC ACID TABLET (FP) PO SCH (10:06)
[2019-12-12] MEDS: CITALOPRAM HYDROBROMIDE 10 MG TABLET PO SCH (10:06)
--- NOTE | 2019-12-12 12:21 | PN ---
[facility] CIWA - CIWA Score Nausea/Vomitin-No Nausea/No Vomiting Muscle Tremors: None Anxiety: 1-Mildly Anxious Agitation: 1-Slight > Activity Paroxysmal Sweats: No Perspiration Orientation: 0-Oriented Tacttile Disturbances: 0-None Auditory Disturbances: 0-None Visual Disturbances: 0-None Headache: 0-None Present CIWA-Ar Total Score: 2 BHS COWS - Scale Resting Pulse: 0= [place] 80 or Below Sweatin= No chills or Flushing Restless Observation: 0= Sits Still Pupil Size: 0= Normal to Room Light Bone or Joint Aches: 1= Mild Discomfort Runny Nose/ Eye Tearin= None GI Upset > 30mins: 0= None Tremor Observation of Outstretched Hands: 1= Tremor [place], Not Seen Yawning Observation: 0= None Anxiety or Irritability: 1=Feels Anxious/Irritable Goose Flesh Skin: 0=Smooth Skin COWS Score: 3 BHS Progress Note (SOAP) Subjective: sweats anxiety toothache Objective: 12/12/19 12:19 Vital Signs Temperature 97.3 F L 12/12/19 09:04 Pulse Rate 70 12/12/19 09:04 Respiratory Rate 18 12/12/19 09:04 Blood Pressure 145/85 12/12/19 09:04 O2 Sat by Pulse Oximetry (%) 95 12/12/19 09:04 aaox3 ambulating no acute distress Assessment: 12/12/19 12:19 withdrawals tooth assess; mild redness to gum area and caries noted on tooth. Plan: continue detox amoxicillin 500 bid x 7 days ordered continue lidocaine s/s motrin 800 prn d/c in am
[2019-12-12] MEDS: AMOX TR/POT CLAV 500MG/125MG TABLETS (FP) PO SCH (17:39)
[2019-12-12] MEDS ORDERED: SUVOREXANT 10 MG TABLET PO PRN (22:00)
[2019-12-12] MEDS: THIAMINE HCL 100 MG TABLET (FP) PO SCH (22:04)
[2019-12-12] MEDS: MELATONIN 5 MG TABLETS PO SCH (22:04)
[2019-12-12] MEDS: LATANOPROST 0.005% OPHTH SOLN 2.5ML BOTTLE OD SCH (22:05)
[2019-12-13] MEDS: IBUPROFEN 400 MG TABLET (FP) PO PRN (02:30)
[2019-12-13] MEDS ORDERED: chlordiazePOXIDE HCL 10 MG CAPSULE PO ONE (05:00)
[2019-12-13] MEDS: ACETAMINOPHEN 325 MG TABLET (FP) PO PRN (05:50)
[2019-12-13] MEDS ORDERED: METHADONE HCL 5 MG TABLET (FOR DETOX USE ONLY) PO ONE (06:00)
[2019-12-13] MEDS: glyBURIDE 5 MG TABLET PO SCH (06:28)
[2019-12-13] MEDS: AMOX TR/POT CLAV 500MG/125MG TABLETS (FP) PO SCH (07:17)
[2019-12-13] MEDS: LIDOCAINE VISCOUS 2% ORAL/TOP 20 ML UNIT-DOSE CUP MM PRN (08:09)
[2019-12-13 09:51] VITALS: BP 110/78; PULSE 71; TEMP 97.1
[2019-12-13] MEDS: CITALOPRAM HYDROBROMIDE 10 MG TABLET PO SCH (10:08)
[2019-12-13] MEDS: PRENATAL VITAMINS W/ FOLIC ACID TABLET (FP) PO SCH (11:23)
[2019-12-13] MEDS: NICOTINE 7 MG/24 HOURS TOPICAL PATCH TD SCH (11:24)
--- NOTE | 2019-12-13 13:48 | DS ---
[facility] Detox Discharge Summary Admission Date: 12/08/19 Discharge Date: 12/13/19 - History Present History: Alcohol Dependence, Cannabis Dependence, Cocaine Dependence, MMTP - Physical Exam Results Vital Signs: Vital Signs Temperature 97.1 F L 12/13/19 09:16 Pulse Rate 71 12/13/19 09:16 Respiratory Rate 18 12/13/19 09:16 Blood Pressure 110/78 12/13/19 09:16 O2 Sat by Pulse Oximetry (%) 100 12/13/19 09:16 Pertinent Admission Physical Exam Findings: Vital Signs Temperature 97.1 F L 12/13/19 09:16 Pulse Rate 71 12/13/19 09:16 Respiratory Rate 18 12/13/19 09:16 Blood Pressure 110/78 12/13/19 09:16 O2 Sat by Pulse Oximetry (%) 100 12/13/19 09:16 Laboratory Tests 12/08/19 12/08/19 12/09/19 14:00 14:16 05:09 WBC RBC Hgb Hct MCV MCH MCHC RDW Plt Count MPV Sodium Potassium Chloride Carbon Dioxide Anion Gap BUN Creatinine Est GFR (CKD-EPI)AfAm Est GFR (CKD-EPI)NonAf POC Glucometer 203 127 Random Glucose Calcium Total Bilirubin AST ALT Alkaline Phosphatase Total Protein Albumin Syphilis Serology COVID-19 (HUMPHREY) Not detected 12/09/19 12/09/19 12/09/19 07:30 07:30 07:30 WBC 6.2 RBC 4.08 Hgb 12.6 Hct 37.1 MCV 90.8 MCH 30.9 MCHC 34.1 RDW 14.0 Plt Count 294 MPV 8.9 Sodium 141 Potassium 4.0 Chloride 109 H Carbon Dioxide 27 Anion Gap 5 L BUN 12.6 Creatinine 0.7 Est GFR (CKD-EPI)AfAm 127.53 Est GFR (CKD-EPI)NonAf 110.04 POC Glucometer Random Glucose 82 Calcium 8.5 Total Bilirubin 0.4 AST 8 L ALT 15 Alkaline Phosphatase 50 Total Protein 5.9 L Albumin 3.0 L Syphilis Serology Non-reactive COVID-19 (HUMPHREY) 12/09/19 12/10/19 12/10/19 16:47 07:04 16:55 WBC RBC Hgb Hct MCV MCH MCHC RDW Plt Count MPV Sodium Potassium Chloride Carbon Dioxide Anion Gap BUN Creatinine Est GFR (CKD-EPI)AfAm Est GFR (CKD-EPI)NonAf POC Glucometer 126 85 211 Random Glucose Calcium Total Bilirubin AST ALT Alkaline Phosphatase Total Protein Albumin Syphilis Serology COVID-19 (HUMPHREY) 12/11/19 12/11/19 12/12/19 05:06 16:51 06:36 WBC RBC Hgb Hct MCV MCH MCHC RDW Plt Count MPV Sodium Potassium Chloride Carbon Dioxide Anion Gap BUN Creatinine Est GFR (CKD-EPI)AfAm Est GFR (CKD-EPI)NonAf POC Glucometer 267 234 122 Random Glucose Calcium Total Bilirubin AST ALT Alkaline Phosphatase Total Protein Albumin Syphilis Serology COVID-19 (HUMPHREY) 12/12/19 12/13/19 17:37 05:49 WBC RBC Hgb Hct MCV MCH MCHC RDW Plt Count MPV Sodium Potassium Chloride Carbon Dioxide Anion Gap BUN Creatinine Est GFR (CKD-EPI)AfAm Est GFR (CKD-EPI)NonAf POC Glucometer 211 168 Random Glucose Calcium Total Bilirubin AST ALT Alkaline Phosphatase Total Protein Albumin Syphilis Serology COVID-19 (HUMPHREY) aaox3 ambulating no acute distress lungs CTA - Treatment Hospital Course: Detox Protocol Followed, Detoxed Safely, Responded well, Discharged Condition Good, Rehab Referral Accepted - Medication Discharge Medications: Ambulatory Orders Citalopram Hydrobromide [Celexa -] 10 mg PO DAILY #30 tablet 04/18/17 Albuterol Sulfate Inhaler - [Ventolin HFA Inhaler -] 2 inh PO Q4H PRN #1 inhaler 09/09/19 Glyburide 5 mg PO BID #60 tablet 09/09/19 Latanoprost 0.005% Eye Drops [Xalatan 0.005% Eye Drops -] 1 drop OD HS #1 drops 09/09/19 Sitagliptin Phosphate [Januvia -] 25 mg PO DAILY@0700 12/08/19 - Diagnosis (1) Alcohol dependence with withdrawal, uncomplicated Current Visit: Yes Status: Chronic (2) Cocaine dependence Current Visit: Yes Status: Chronic Qualifiers: Substance use status: uncomplicated Qualified Code(s): F14.20 - Cocaine dependence, uncomplicated (3) Opioid dependence with withdrawal Current Visit: Yes Status: Chronic (4) Diabetes 1.5, managed as type 2 Current Visit: Yes Status: Chronic (5) Glaucoma associated with ocular disorder, indeterminate stage Current Visit: Yes Status: Chronic Qualifiers: Laterality: right Qualified Code(s): H40.51X4 - Glaucoma secondary to other eye disorders, right eye, indeterminate stage (6) Nicotine dependence with withdrawal Current Visit: Yes Status: Chronic (7) Opioid dependence, uncomplicated Current Visit: No Status: Acute (8) Substance-induced anxiety disorder Current Visit: No Status: Acute (9) Substance-induced sleep disorder Current Visit: No Status: Acute (10) Anxiety Current Visit: No Status: Chronic (11) Anxiety and depression Current Visit: No Status: Chronic (12) Bipolar II disorder Current Visit: No Status: Chronic (13) COPD (chronic obstructive pulmonary disease) Current Visit: No Status: Chronic Qualifiers: Emphysema type: unspecified (14) Cannabis dependence Current Visit: No Status: Chronic (15) Diabetes mellitus treated with oral medication Current Visit: No Status: Chronic (16) History of posttraumatic stress disorder (PTSD) Current Visit: No Status: Chronic (17) Nicotine dependence Current Visit: No Status: Chronic Qualifiers: Nicotine product type: cigarettes Substance use status: in withdrawal Qualified Code(s): F17.213 - Nicotine dependence, cigarettes, with withdrawal (18) Nicotine dependence Current Visit: No Status: Chronic (19) Obesity Current Visit: No Status: Chronic Qualifiers: Obesity type: due to excess calories Obesity classification: adult class 1 (BMI 30 - 34.9) Serious obesity comorbidity presence: without serious comorbidity Body mass index: BMI 34.0-34.9 Qualified Code(s): E66.09 - Other obesity due to excess calories; Z68.34 - Body mass index [BMI] 34.0-34.9, adult (20) PTSD (post-traumatic stress disorder) Current Visit: No Status: Chronic (21) Sleep apnea with use of continuous positive airway pressure (CPAP) Current Visit: No Status: Chronic (22) Substance induced mood disorder Current Visit: No Status: Chronic - AMA Did Patient Leave Against Medical Advice: No
== END 2019-12-13 10:14 | disposition other institution (70) | DRG 773 ==
LOC: YASAS 12:06 → Y6N 13:51
PROVIDERS: ADMIT Allergy & Immunology; ATTEND Allergy & Immunology
PROC: HZ2ZZZZ Detoxification Services for Substance Abuse Treatment (ICD-10-PCS; principal; 2019-12-08)
DX: F10.230 Alcohol dependence with withdrawal, uncomplicated (principal); F11.20 Opioid dependence, uncomplicated; F14.20 Cocaine dependence, uncomplicated; F12.20 Cannabis dependence, uncomplicated; F17.210 Nicotine dependence, cigarettes, uncomplicated; F19.280 Other psychoactive substance dependence with psychoactive substance-induced anxiety disorder; F19.282 Other psychoactive substance dependence with psychoactive substance-induced sleep disorder; F31.81 Bipolar II disorder; F43.10 Post-traumatic stress disorder, unspecified; F41.9 Anxiety disorder, unspecified; E78.5 Hyperlipidemia, unspecified; E11.9 Type 2 diabetes mellitus without complications; G47.30 Sleep apnea, unspecified; J44.9 Chronic obstructive pulmonary disease, unspecified; Z79.84 Long term (current) use of oral hypoglycemic drugs; H40.50 Glaucoma secondary to other eye disorders, unspecified eye; K02.9 Dental caries, unspecified; E66.9 Obesity, unspecified; Z68.34 Body mass index [BMI] 34.0-34.9, adult; Z62.810 Personal history of physical and sexual abuse in childhood; Z91.410 Personal history of adult physical and sexual abuse
CPT/HCPCS: 36415; 80053; 82962; 85027; 86780; U0003

== ENCOUNTER 2019-12-13 10:13 | Inpatient (IN) | payer OTHER ==
--- NOTE | 2019-12-12 15:06 | HP ---
DARSHANA FONTAINE Rehab Assess/Revision - Admission History Admitted to Rehab from: [facility] - Findings Detox History & Physical reviewed: Yes Concur with findings: Yes Inpatient Rehab Admission - Rehab Decision to Admit Inpatient rehab admission?: Yes - Initial Determination Are CD services needed?: Yes Free of communicable disease: Yes Not in need of hospitalization: Yes - Rehab Admission Criteria Previous failed treatment: Yes Poor recovery environment: Yes Comorbidities: Yes Lacks judgement: Yes Patient is meeting Inpatient Rehab admission criteria:: Yes
[~2019-12-13 10:13] MED LIST: IBUPROFEN 400 MG TABLET (FP) PO PRN; LOPERAMIDE HCL 2 MG CAPSULE PO PRN; MAG HYDROX/AL HYDROX/SIMETH 30 ML UNIT-DOSE CUP PO PRN; MAGNESIUM CITRATE 300 ML BOTTLE PO PRN; MAGNESIUM HYDROX 2400MG/30ML ORAL SUSPENSION 30 ML CUP PO PRN; MENTHOL/PHENOL 1 EACH UD MM PRN; NICOTINE 21 MG/24 HOURS TOPICAL PATCH TD SCH; NICOTINE POLACRILEX 2 MG GUM BUC PRN; P-EPHED 60MG/TRIPROLIDI 2.5MG TABLET PO PRN; guaiFENesin 200 MG/10 ML 10 ML UNIT-DOSE CUPS PO PRN
--- OUTSIDE RECORDS SUMMARY | 2019-12-13 10:18 | XMS ---
:1970 Author Organization [facility] Care Team Providers Name Role Phone BORA VALLEJO Unavailable Unavailable AIMEE FOUNTAIN Unavailable Unavailable GHULAM BARCENAS MD Unavailable Unavailable MD BEBE Unavailable Unavailable CELINE Unavailable Unavailable FAGAN Unavailable Unavailable Re-disclosure Warning The records that [...] is protected by Article 27-F of the [place] Public [facility] law. If you continue you may haveaccess to information: Regarding HIV / AIDS; Provided by facilities licensed or operated by the [facility] Office of Mental Health; or Provided by the [facility] Office for People With Developmental Disabilities. If such information is present, then the following [facility] mandated warning applies: This information has been [...] law may result in a fine or halfway sentence or both. A general authorization for the release of medical or other information is NOT sufficient authorization for further disclosure. Encounters Encounter Providers Location Date Indications Data Source(s ) Outpatient Attender: BORA 10/11/2019 [facility] [place] YONI 12:15:42 PM [facility] EDT Patient admitted. Inpatient Attender: GHULAM [facility] - [facility] 10:18:00 PM EDT Patient discharged. Outpatient ST 10/10/2019 02:12:00 PM EDT - [address] [place] [address] 05:37:00 PM EDT Patient discharged. Outpatient Attender: ERI 09/18/2019 10:25:34 AM [facility] Patient admitted. Outpatient Attender: AIMEE FOUNTAIN 09/10/2019 12:38:44 PM [facility] Patient admitted. Outpatient Attender: PAUL FAGAN 09/10/2019 08:34:53 AM [facility] Patient admitted. Insurance Providers Payer name Policy type Policy ID Covered Covered green party's Policy P willow / Coverage green party ID relationship to [facility] ormation type hernandez [employer] [id number] SP [id number] A SELF PAY [id number] Self [id number] MEDICAID INP [id number] Self [id number] A REHAB [facility] HEALTH [id number] Self [id number] FIRST HEALTHFIRST Medicaid Mgd 156 156 Care SLIDING F[place] [id number] Self [id number] SELF PAY/NO [id number] Self [id number] SLIDE [employer]ALTHFIRST [id number] Self [id number] [employer]ALTH[employer] [id number] Self [id number] [place] [id number] Self [id number] [employer]ALTH[employer] [id number] Self [id number] HE[employer] FIRST [id number] SP [id number] A SLIDING FEE Uninsured [id number] 156 Care Problems, Conditions, and Diagnoses Code Display Name Description Problem Type Effective Dates Data Source(s) Hospital Discharge Hospital Discharge Diagnosis 0 [facility] 12:15:42 PM EDT For [facility] y Health Emergency Room Emergency Room Diagnosis 09/18/2019 The In stitute Visit Follow Up Visit Follow Up 10:25:34 AM EDT For [facility] Transitional Care Transitional Care Diagnosis 09/10/2019 [facility] 12:38:44 PM EDT For [facility] y Outreach Outreach Health Z11.59 Encounter for Encounter for Diagnosis 09/10/2019 The [facility] itute screening for screening for 08:34:53 AM EDT For Family other viral other viral Health diseases diseases Surgeries/Procedures Procedure Description Date Indications Data Source(s) NOVEL CORONAVIRUS NOVEL CORONAVIRUS Routine 09/06/2019 0 09/06/2019 The COVID-19 [facility] NAS[facility]ARYNGEAL NASOPHARYNGEAL EDT For [facility] Results ID Date Data Source [id number] 12/08/2019 02:00:00 PM EDT [facility] Name Value Range Interpretation Description Data Sup porting Code Source(s) Document(s ) SARS [facility] coronavirus 2 RNA This lab was ordered by [facility] and reported by [facility]. ID Date Data Source [id number] 10/14/2019 12:00:00 AM EDT [facility] Name Value Range Interpretation Code Description Data Samantha rce(s) Supporting Document(s ) 2019-nCoV [facility] RNA XXX HUMPHREY+probe- Imp This lab was ordered by [facility] and reported by [facility]. ID Date Data Source [id number] 10/05/2019 06:35:00 PM EDT [facility] Name Value Range Interpretation Description Data Sup porting Code Source(s) Document(s ) SARS [facility] coronavirus 2 RNA This lab was ordered by [facility] and reported by [facility]. ID Date Data Source [id number] 09/04/2019 12:30:00 PM EDT [facility] Name Value Range Interpretation Description Data Sup porting Code Source(s) Document(s ) SARS [facility] CORONAVIRUS 2 RNA This lab was ordered by [facility] and reported by [facility]. Procedure Vital Signs ID Date Data Source UNK Name Value Range Interpretation Code Description Data Source(s) Body temperature 97.3 Fahrenheit 97.3 Fahrenh t [facility] Diastolic blood 81 mmHg 81 mmHg [facility] Systolic blood 124 mmHg 124 mmHg [facility] Respiratory rate 18 bpm 18 bpm [facility] Heart rate 73 bpm 73 bpm [facility] Body temperature 97.4 Fahrenheit 97.4 Fahrenh t [facility] Body weight 187 lbs 187 lbs [facility] Diastolic blood 81 mmHg 81 mmHg [facility] Systolic blood 142 mmHg 142 mmHg [facility] Respiratory rate 18 bpm 18 bpm [facility] Heart rate 76 bpm 76 bpm [facility] Body temperature 97.2 Fahrenheit 97.2 Fahrenh t [facility] Diastolic blood 78 mmHg 78 mmHg [facility] Systolic blood 121 mmHg 121 mmHg [facility] Respiratory rate 18 bpm 18 bpm [facility] Heart rate 80 bpm 80 bpm [facility] Body temperature 97.7 Fahrenheit 97.7 Fahrenh t [facility] Diastolic blood 80 mmHg 80 mmHg [facility] Systolic blood 132 mmHg 132 mmHg [facility] Respiratory rate 18 bpm 18 bpm [facility] Heart rate 73 bpm 73 bpm [facility] Body temperature 97.2 Fahrenheit 97.2 [facility] ID Date Data Source [id number] 11/05/2019 12:27:42 PM EDT [facility] Name Value Range Interpretation Code Description Data Source(s) Body weight Measured 187 lb 187 lb [facility]
--- OUTSIDE RECORDS SUMMARY | 2019-12-13 10:19 | XMS ---
:1970 Author Organization [facility] Care Team Providers Name Role Phone [...] is protected by Article 27-F of the [facility] Public Health law. If you continue you may haveaccess to information: Regarding HIV / AIDS; Provided by facilities licensed or operated by the [facility] Office of Mental Health; or Provided by the [facility] Office for People With Developmental Disabilities. If such information is present, then the following [facility] mandated warning applies: This information [...] law may result in a fine or senior living sentence or both. A general authorization for the release of medical or other information is NOT sufficient authorization for further disclosure. Encounters Encounter Providers Location Date Indications Data Source(s ) Outpatient Attender: BORA 10/11/2019 [facility] [place] Janis YONI 12:15:42 PM [facility] EDT Patient admitted. Inpatient Attender: GHULAM ST-1D [facility] - [facility]2019 [facility] 10:18:00 PM EDT Patient discharged. Outpatient ST 10/10/2019 02:12:00 PM EDT - [address] [place] [address] 05:37:00 PM EDT Patient discharged. Outpatient Attender: ERI 09/18/2019 10:25:34 AM The [facility] Patient admitted. Outpatient Attender: AIMEE FOUNTAIN 09/10/2019 12:38:44 PM [facility] Patient admitted. Outpatient Attender: PAUL FAGAN 09/10/2019 08:34:53 AM [facility] Patient admitted. Insurance Providers Payer name Policy type Policy ID Covered Covered democrat's Policy P willow / Coverage democrat ID relationship to [facility] Inf ormation type hernandez [employer] FIRST [id number] SP [id number] A SELF PAY [id number] Self [id number] MEDICAID INP [id number] Self [id number] A REHAB [facility] [id number] Self [id number] FIRST HEALTHFIRST Medicaid Mgd 156 [id number] Care SLIDING FEE [id number] Self [id number] SELF PAY/NO [id number] Self [id number] SLIDE [employer]ALTH[employer] [id number] Self [id number] HEALTHFIRST [id number] Self [id number] [place] [id number] Self [id number] HEALTHFIRST [id number] Self [id number] HEALTH FIRST [id number] SP [id number] A SLIDING FEE Uninsured [id number] [facility] 156 156 Care Problems, Conditions, and Diagnoses Code Display Name Description Problem Type Effective Dates Data Source(s) Hospital Discharge Hospital Discharge Diagnosis 0 [facility] 12:15:42 PM EDT [facility] Emergency Room Emergency Room Diagnosis 09/18/2019 The In stitute Visit Follow Up Visit Follow Up 10:25:34 AM EDT For [facility] Transitional Care Transitional Care Diagnosis 09/10/2019 [facility] Management 12:38:44 PM EDT [facility] Outreach Health Z11.59 Encounter for Encounter for Diagnosis 09/10/2019 [facility] itute screening for screening for 08:34:53 AM EDT For Family other viral other viral Health diseases diseases Surgeries/Procedures Procedure Description Date Indications Data Source(s) NOVEL CORONAVIRUS NOVEL CORONAVIRUS Routine 09/06/2019 0 09/06/2019 The COVID-19 COVID-19 [facility] NASOPHARYNGEAL EDT For [facility] Results ID Date Data Source [id number] 12/08/2019 02:00:00 PM EDT [facility] Name Value Range Interpretation Description Data Sup porting Code Source(s) Document(s ) SARS [facility] coronavirus 2 RNA This lab was ordered by [facility] and reported by [facility]. ID Date Data Source [id number] 10/14/2019 12:00:00 AM EDT [facility] Name Value Range Interpretation Code Description Data Samantha rce(s) Supporting Document(s ) 2019-nCoV [facility] RNA XXX HUMPHREY+probe- Imp This lab was ordered by [facility] and reported by [facility]. ID Date Data Source [id number] 10/05/2019 06:35:00 PM EDT [facility] Name Value Range Interpretation Description Data Sup porting Code Source(s) Document(s ) SARS [facility] coronavirus 2 RNA This lab was ordered by [facility] and reported by [facility]. ID Date Data Source [id number] 09/04/2019 12:30:00 PM EDT [facility] Name Value Range Interpretation Description Data Sup porting Code Source(s) Document(s ) SARS [facility] CORONAVIRUS 2 RNA This lab was ordered by [facility] and reported by [facility]. Procedure Vital Signs ID Date Data Source UNK Name Value Range Interpretation Code Description Data Source(s) Body temperature 97.3 Fahrenheit 97.3 Fahrenh t [facility] Diastolic blood 81 mmHg 81 mmHg [facility] Systolic blood 124 mmHg 124 mmHg [facility] Respiratory rate 18 bpm 18 bpm [facility] Heart rate 73 bpm 73 bpm [facility] Body temperature 97.4 Fahrenheit 97.4 Fahrenh t [facility] Body weight 187 lbs 187 lbs [facility] Diastolic blood 81 mmHg 81 mmHg [facility] Systolic blood 142 mmHg 142 mmHg [facility] Respiratory rate 18 bpm 18 bpm [facility] Heart rate 76 bpm 76 bpm [facility] Body temperature 97.2 Fahrenheit 97.2 Fahrenh t [facility] Diastolic blood 78 mmHg 78 mmHg [facility] Systolic blood 121 mmHg 121 mmHg [facility] Respiratory rate 18 bpm 18 bpm [facility] Heart rate 80 bpm 80 bpm [facility] Body temperature 97.7 Fahrenheit 97.7 Fahrenh t [facility] Diastolic blood 80 mmHg 80 mmHg [facility] Systolic blood 132 mmHg 132 mmHg [facility] Respiratory rate 18 bpm 18 bpm [facility] Heart rate 73 bpm 73 bpm [facility] Body temperature 97.2 Fahrenheit 97.2 [facility] t [facility] ID Date Data Source [id number] 11/05/2019 12:27:42 PM EDT [facility] Name Value Range Interpretation Code Description Data Source(s) Body weight Measured 187 lb 187 lb [facility]
[2019-12-13] MEDS: PRENATAL VITAMINS W/ FOLIC ACID TABLET (FP) PO SCH (10:46)
[2019-12-13] MEDS ORDERED: ALBUTEROL SO4 HFA INHALER IH PRN (11:19)
[2019-12-13] MEDS ORDERED: LIDOCAINE VISCOUS 2% ORAL/TOP 20 ML UNIT-DOSE CUP MM PRN (12:44)
[2019-12-13] MEDS: MELATONIN 5 MG TABLETS PO SCH ×2 (16:06→21:16)
[2019-12-13] MEDS: THIAMINE HCL 100 MG TABLET (FP) PO SCH ×2 (16:06→21:17)
[2019-12-13] MEDS: AMOX TR/POT CLAV 500MG/125MG TABLETS (FP) PO SCH ×2 (16:07→18:16)
[2019-12-13] MEDS: IBUPROFEN 400 MG TABLET (FP) PO PRN (16:51)
[2019-12-13] MEDS: glyBURIDE 5 MG TABLET PO SCH (18:15)
[2019-12-13] MEDS: LATANOPROST 0.005% OPHTH SOLN 2.5ML BOTTLE OD SCH (21:18)
[2019-12-13] MEDS: ACETAMINOPHEN 325 MG TABLET (FP) PO PRN (21:21)
[2019-12-14] MEDS: IBUPROFEN 400 MG TABLET (FP) PO PRN ×3 (01:22→17:42)
[2019-12-14] MEDS ORDERED: PT OWN MED DRAWER 7, Y5N ONE (03:42)
[2019-12-14] MEDS: ACETAMINOPHEN 325 MG TABLET (FP) PO PRN ×2 (06:03→21:33)
[2019-12-14] MEDS: glyBURIDE 5 MG TABLET PO SCH ×2 (07:01→16:54)
[2019-12-14] MEDS: AMOX TR/POT CLAV 500MG/125MG TABLETS (FP) PO SCH ×2 (07:01→17:41)
[2019-12-14] MEDS: PRENATAL VITAMINS W/ FOLIC ACID TABLET (FP) PO SCH (10:09)
[2019-12-14] MEDS: NICOTINE 21 MG/24 HOURS TOPICAL PATCH TD SCH (10:09)
[2019-12-14] MEDS: CITALOPRAM HYDROBROMIDE 10 MG TABLET PO SCH (10:09)
[2019-12-14] MEDS: MELATONIN 5 MG TABLETS PO SCH (21:31)
[2019-12-14] MEDS: THIAMINE HCL 100 MG TABLET (FP) PO SCH (21:31)
[2019-12-14] MEDS: LATANOPROST 0.005% OPHTH SOLN 2.5ML BOTTLE OD SCH (21:32)
[2019-12-14] MEDS: hydrOXYzine PAMOATE 25 MG CAPSULE (FP) PO PRN (21:33)
[2019-12-15] MEDS: IBUPROFEN 400 MG TABLET (FP) PO PRN ×2 (06:44→10:20)
[2019-12-15] MEDS: AMOX TR/POT CLAV 500MG/125MG TABLETS (FP) PO SCH ×2 (07:30→17:05)
[2019-12-15] MEDS: glyBURIDE 5 MG TABLET PO SCH ×2 (07:30→17:05)
[2019-12-15] MEDS: hydrOXYzine PAMOATE 25 MG CAPSULE (FP) PO PRN (10:19)
[2019-12-15] MEDS: CITALOPRAM HYDROBROMIDE 10 MG TABLET PO SCH (10:19)
[2019-12-15] MEDS: NICOTINE 21 MG/24 HOURS TOPICAL PATCH TD SCH (10:19)
[2019-12-15] MEDS: PRENATAL VITAMINS W/ FOLIC ACID TABLET (FP) PO SCH (10:26)
[2019-12-15] MEDS: ACETAMINOPHEN 325 MG TABLET (FP) PO PRN (17:00)
[2019-12-15] MEDS: MELATONIN 5 MG TABLETS PO SCH (21:14)
[2019-12-15] MEDS: LATANOPROST 0.005% OPHTH SOLN 2.5ML BOTTLE OD SCH (21:15)
[2019-12-15] MEDS: THIAMINE HCL 100 MG TABLET (FP) PO SCH (21:15)
[2019-12-16] MEDS: AMOX TR/POT CLAV 500MG/125MG TABLETS (FP) PO SCH ×2 (07:03→16:44)
[2019-12-16] MEDS: glyBURIDE 5 MG TABLET PO SCH ×2 (07:03→16:44)
[2019-12-16] MEDS: IBUPROFEN 400 MG TABLET (FP) PO PRN (07:03)
[2019-12-16] MEDS: NICOTINE 21 MG/24 HOURS TOPICAL PATCH TD SCH (09:49)
[2019-12-16] MEDS: CITALOPRAM HYDROBROMIDE 10 MG TABLET PO SCH (09:49)
[2019-12-16] MEDS: PRENATAL VITAMINS W/ FOLIC ACID TABLET (FP) PO SCH (09:49)
[2019-12-16] MEDS: ACETAMINOPHEN 325 MG TABLET (FP) PO PRN (09:50)
--- NOTE | 2019-12-16 14:29 | PN ---
[facility] Progress Note Note: Patient evaluated for MAT for opiod use disorder. Patient has hx of alcohol and opiod use. States he was treated with Suboxone in past at [facility] but did not continue with treatment as outpatient. Patient reports having mild restlessness and cravings. Interested in medication assisted treatment. Vital Signs Temperature 96.3 F L 12/16/19 06:31 Pulse Rate 74 12/16/19 06:31 Respiratory Rate 18 12/16/19 06:31 Blood Pressure 117/68 12/16/19 06:31 O2 Sat by Pulse Oximetry (%) 97 12/16/19 06:31 Laboratory Tests 12/13/19 12/14/19 12/14/19 16:47 06:02 16:26 POC Glucometer 120 77 149 12/15/19 12/15/19 12/16/19 07:28 16:59 06:33 POC Glucometer 105 224 84 PE: alert and oriented x 3 skin warm and dry neck supple, no jvd +perrla, eoms intact bl gi nt, nd ext full rom, amb ad nydia no tremors A/P: opiod/etoh dependence Patient explained different options of medication assisted treatment: vivitrol, revia and suboxone. Patient explained use, dose/administration, potential side effects, risk vs benefits of treatment and possible adverse interactions. Patient refused vivitrol and revia. Is considering suboxone treatment. Patient referred to counselor for connection to OTP prior to initiating treatment.
[2019-12-16] MEDS: MELATONIN 5 MG TABLETS PO SCH (21:30)
[2019-12-16] MEDS: LATANOPROST 0.005% OPHTH SOLN 2.5ML BOTTLE OD SCH (21:31)
[2019-12-16] MEDS: THIAMINE HCL 100 MG TABLET (FP) PO SCH (21:31)
[2019-12-16 22:14] VITALS: TEMP 98.2
[2019-12-16 22:35] VITALS: BP 122/92; PULSE 88
--- NOTE | 2019-12-16 23:47 | DS ---
[facility] Rehab Discharge Summary - [facility] Rehab Discharge Summary Admission Date: 12/13/19 Discharge Date: 12/16/19 - History Present History: Alcohol dependence, Cocaine dependence, Opioid dependence Additional Comments: CLIENT SIGNING OUT AMA. DOES NOT WANT TO DISCUSS AND IS NOT OPEN TO CONTINUATION OF TXMENT. HE IS A/O X3 NAD. AMBUALTING WITH OUT DIFFICULTY. DENIES SOB, C.P., SKIN INTACT VSS Pertinent Past History: DM NICOTINE DEP - Discharge Physical Exam Vital Signs: Vital Signs Temperature 98.2 F 12/16/19 22:30 Pulse Rate 88 12/16/19 22:30 Respiratory Rate 18 12/16/19 22:30 Blood Pressure 122/92 12/16/19 22:30 O2 Sat by Pulse Oximetry (%) 98 12/16/19 22:30 Pertinent Admission Physical Exam Findings: S/P DETOX. ADMITTED TO REHAB FOR CONTINUATION OF TXMENT AND MAINTENANCE OF SOBRIETY - Treatment Discharge Condition: Discharge condition good - Medication Discharge Medications: Ambulatory Orders Citalopram Hydrobromide [Celexa -] 10 mg PO DAILY #30 tablet 04/18/17 Albuterol Sulfate Inhaler - [Ventolin HFA Inhaler -] 2 inh PO Q4H PRN #1 inhaler 09/09/19 Glyburide 5 mg PO BID #60 tablet 09/09/19 Latanoprost 0.005% Eye Drops [Xalatan 0.005% Eye Drops -] 1 drop OD HS #1 drops 09/09/19 Sitagliptin Phosphate [Januvia -] 25 mg PO DAILY@0700 12/08/19 Amox-Tr/K Cl [Augmentin 500-125mg Tablet -] 1 tab PO BID@0800,1730 4 Days #8 tablet 12/16/19 - Medication-Assisted Treatment (MAT) Medication-Assisted Treatment (MAT): No - Discharge Instructions Diet, activity, other medical instructions: Diet: Activity: Other medical instructions: - Diagnosis (1) Opioid dependence, uncomplicated Status: Chronic (2) Alcohol dependence with withdrawal, uncomplicated Status: Resolved (3) COPD (chronic obstructive pulmonary disease) Status: Chronic Qualifiers: Emphysema type: unspecified (4) Cocaine dependence Status: Chronic Qualifiers: Substance use status: uncomplicated Qualified Code(s): F14.20 - Cocaine dependence, uncomplicated (5) Diabetes 1.5, managed as type 2 Status: Chronic (6) Nicotine dependence Status: Chronic Qualifiers: Nicotine product type: cigarettes Substance use status: in withdrawal Qualified Code(s): F17.213 - Nicotine dependence, cigarettes, with withdrawal - Follow-up Referral Minutes to complete discharge: 30 (MIN) - AMA Did Patient Leave Against Medical Advice: Yes
== END 2019-12-16 23:50 | disposition left against medical advice (07) | DRG 770 ==
LOC: YASAS 10:13 → Y3W 10:15
PROVIDERS: ADMIT Allergy & Immunology; ATTEND Allergy & Immunology
PROC: HZ42ZZZ Group Counseling for Substance Abuse Treatment, Cognitive-Behavioral (ICD-10-PCS; principal; 2019-12-13)
DX: F10.20 Alcohol dependence, uncomplicated (principal); F11.20 Opioid dependence, uncomplicated; F14.20 Cocaine dependence, uncomplicated; F17.210 Nicotine dependence, cigarettes, uncomplicated
CPT/HCPCS: 82962

== ENCOUNTER 2020-04-15 11:31 | Inpatient (IN) | payer OTHER ==
[2020-04-15] MEDS ORDERED: MENTHOL/PHENOL 1 EACH UD MM PRN (13:18)
[2020-04-15] MEDS ORDERED: MAG HYDROX/AL HYDROX/SIMETH 30 ML UNIT-DOSE CUP PO PRN (13:18)
[2020-04-15] MEDS ORDERED: BISMUTH SUBSALICYLATE 524 MG/30 ML UD PO PRN (13:18)
[2020-04-15] MEDS ORDERED: NICOTINE POLACRILEX 2 MG GUM BUC PRN (13:18)
[2020-04-15] MEDS ORDERED: cloNIDine HCL 0.1 MG TABLET PO PRN (13:18)
[2020-04-15] MEDS ORDERED: ACETAMINOPHEN 325 MG TABLET (FP) PO PRN ×2 (13:18)
[2020-04-15] MEDS ORDERED: MAGNESIUM HYDROX 2400MG/30ML ORAL SUSPENSION 30 ML CUP PO PRN (13:18)
[2020-04-15] MEDS ORDERED: MAGNESIUM CITRATE 300 ML BOTTLE PO PRN (13:18)
[2020-04-15] MEDS ORDERED: ONDANSETRON *ODT* 4 MG TABLET SL PRN (13:18)
[2020-04-15 13:43] VITALS: BMI 30.2
[2020-04-15] MEDS ORDERED: METHADONE HCL 10 MG TABLET (FOR DETOX USE ONLY) PO ONE (13:45)
[2020-04-15] MEDS ORDERED: ALBUTEROL SO4 HFA INHALER IH PRN (13:54)
[2020-04-15] MEDS: hydrOXYzine PAMOATE 25 MG CAPSULE (FP) PO SCH ×3 (14:39→23:00)
[2020-04-15] MEDS: PRENATAL VITAMINS W/ FOLIC ACID TABLET (FP) PO SCH (14:39)
[2020-04-15 17:24] LABS: POTASSIUM 4.9 mmol/L (3.5-5.1)
[2020-04-15 17:25] LABS: HEMATOCRIT 38.3 % (35.4-49); MCH 31.7 pg (25.7-33.7); MCHC 33.9 g/dl (32.0-35.9); MEAN CELL VOLUME 93.5 fl (80-96); MEAN PLT VOLUME 8.7 fl (7.5-11.1); PLATELET COUNT 343 K/MM3 (134-434); RDW 13.8 % (11.9-15.9); WHITE BLOOD COUNT 8.2 K/mm3 (4.0-10.0)
[2020-04-15 17:30] LABS: ALBUMIN 3.8 g/dl (3.4-5.0); CALCIUM 9.3 mg/dL (8.5-10.1)
[2020-04-15 17:31] LABS: BLOOD UREA NITROGEN 15.8 mg/dL (7-18)
[2020-04-15 17:32] LABS: BILIRUBIN,TOTAL 0.4 mg/dL (0.2-1); TOT PROT 7.2 g/dl (6.4-8.2)
[2020-04-15 17:34] LABS: CREATININE 0.8 mg/dL (0.55-1.3)
[2020-04-15] MEDS: metFORMIN HCL 500 MG TABLET (FP) PO SCH (18:00)
[2020-04-15] MEDS: LATANOPROST 0.005% OPHTH SOLN 2.5ML BOTTLE OD SCH (23:00)
[2020-04-15] MEDS: MELATONIN 5 MG TABLETS PO SCH (23:00)
[2020-04-15] MEDS: THIAMINE HCL 100 MG TABLET (FP) PO SCH (23:00)
[2020-04-16] MEDS: hydrOXYzine PAMOATE 25 MG CAPSULE (FP) PO SCH ×5 (05:19→23:02)
[2020-04-16] MEDS: metFORMIN HCL 500 MG TABLET (FP) PO SCH ×2 (06:14→18:07)
[2020-04-16] MEDS ORDERED: METHADONE HCL 5 MG TABLET (FOR DETOX USE ONLY) ONE (08:53)
[2020-04-16] MEDS ORDERED: METHADONE HCL 10 MG TABLET (FOR DETOX USE ONLY) ONE (08:54)
[2020-04-16] MEDS: NICOTINE 21 MG/24 HOURS TOPICAL PATCH TD SCH (09:46)
[2020-04-16] MEDS: PRENATAL VITAMINS W/ FOLIC ACID TABLET (FP) PO SCH (09:46)
[2020-04-16] MEDS ORDERED: diazePAM 5 MG TABLET PO PRN (09:51)
[2020-04-16] MEDS ORDERED: METHADONE (DETOX) 20 MG, METHADONE (DETOX) 5 MG PO ONE (10:00)
[2020-04-16] MEDS ORDERED: [UNRECOGNIZED DRUG - OTHER] DT SCH (10:00)
[2020-04-16] MEDS ORDERED: FLUORIDE DT SCH (10:00)
[2020-04-16] MEDS ORDERED: CITALOPRAM HYDROBROMIDE 10 MG TABLET PO SCH (11:45)
[2020-04-16] MEDS: CITALOPRAM HYDROBROMIDE 10 MG TABLET PO SCH (15:02)
[2020-04-16] MEDS: THIAMINE HCL 100 MG TABLET (FP) PO SCH (22:57)
[2020-04-16] MEDS: LATANOPROST 0.005% OPHTH SOLN 2.5ML BOTTLE OD SCH (22:57)
[2020-04-16] MEDS: MELATONIN 5 MG TABLETS PO SCH (23:37)
[2020-04-17] MEDS: hydrOXYzine PAMOATE 25 MG CAPSULE (FP) PO SCH ×5 (06:23→22:37)
[2020-04-17] MEDS: metFORMIN HCL 500 MG TABLET (FP) PO SCH ×2 (06:23→16:30)
[2020-04-17] MEDS ORDERED: METHADONE HCL 10 MG TABLET (FOR DETOX USE ONLY) PO ONE (10:00)
[2020-04-17] MEDS: CITALOPRAM HYDROBROMIDE 10 MG TABLET PO SCH (11:11)
[2020-04-17] MEDS: PRENATAL VITAMINS W/ FOLIC ACID TABLET (FP) PO SCH (11:11)
[2020-04-17] MEDS: NICOTINE 21 MG/24 HOURS TOPICAL PATCH TD SCH (11:13)
[2020-04-17] MEDS: LATANOPROST 0.005% OPHTH SOLN 2.5ML BOTTLE OD SCH (22:37)
[2020-04-17] MEDS: THIAMINE HCL 100 MG TABLET (FP) PO SCH (22:37)
[2020-04-17] MEDS: MELATONIN 5 MG TABLETS PO SCH (22:37)
[2020-04-18] MEDS: hydrOXYzine PAMOATE 25 MG CAPSULE (FP) PO SCH ×5 (06:27→22:07)
[2020-04-18] MEDS: metFORMIN HCL 500 MG TABLET (FP) PO SCH ×2 (06:27→17:35)
[2020-04-18] MEDS: IBUPROFEN 400 MG TABLET (FP) PO PRN (08:50)
[2020-04-18] MEDS: METHOCARBAMOL 500 MG TABLET PO PRN ×2 (08:50→22:09)
[2020-04-18] MEDS ORDERED: METHADONE HCL 10 MG TABLET (FOR DETOX USE ONLY) ONE (09:15)
[2020-04-18] MEDS ORDERED: METHADONE HCL 5 MG TABLET (FOR DETOX USE ONLY) ONE (09:15)
[2020-04-18] MEDS ORDERED: BENZOCAINE 20 % GEL TUBE MM PRN (09:38)
[2020-04-18] MEDS ORDERED: METHADONE (DETOX) 10 MG, METHADONE (DETOX) 5 MG PO ONE (10:00)
[2020-04-18] MEDS: LIDOCAINE VISCOUS 2% ORAL/TOP 20 ML UNIT-DOSE CUP MM PRN (11:04)
[2020-04-18] MEDS: PRENATAL VITAMINS W/ FOLIC ACID TABLET (FP) PO SCH (11:05)
[2020-04-18] MEDS: NICOTINE 21 MG/24 HOURS TOPICAL PATCH TD SCH (11:06)
[2020-04-18] MEDS: CITALOPRAM HYDROBROMIDE 10 MG TABLET PO SCH (11:06)
[2020-04-18] MEDS: THIAMINE HCL 100 MG TABLET (FP) PO SCH (22:06)
[2020-04-18] MEDS: MELATONIN 5 MG TABLETS PO SCH (22:06)
[2020-04-18] MEDS: LATANOPROST 0.005% OPHTH SOLN 2.5ML BOTTLE OD SCH (22:10)
[2020-04-19] MEDS: metFORMIN HCL 500 MG TABLET (FP) PO SCH ×2 (06:58→17:53)
[2020-04-19] MEDS: hydrOXYzine PAMOATE 25 MG CAPSULE (FP) PO SCH ×5 (06:58→22:26)
[2020-04-19] MEDS ORDERED: METHADONE HCL 10 MG TABLET (FOR DETOX USE ONLY) PO ONE (10:00)
[2020-04-19] MEDS: CITALOPRAM HYDROBROMIDE 10 MG TABLET PO SCH (10:02)
[2020-04-19] MEDS: PRENATAL VITAMINS W/ FOLIC ACID TABLET (FP) PO SCH (10:02)
[2020-04-19] MEDS: NICOTINE 21 MG/24 HOURS TOPICAL PATCH TD SCH (10:02)
[2020-04-19] MEDS: METHOCARBAMOL 500 MG TABLET PO PRN (17:54)
[2020-04-19] MEDS: IBUPROFEN 400 MG TABLET (FP) PO PRN (17:54)
[2020-04-19] MEDS: THIAMINE HCL 100 MG TABLET (FP) PO SCH (22:26)
[2020-04-19] MEDS: MELATONIN 5 MG TABLETS PO SCH (22:26)
[2020-04-19] MEDS: LATANOPROST 0.005% OPHTH SOLN 2.5ML BOTTLE OD SCH (22:26)
[2020-04-19] MEDS: LIDOCAINE VISCOUS 2% ORAL/TOP 20 ML UNIT-DOSE CUP MM PRN (22:29)
[2020-04-20] MEDS ORDERED: METHADONE HCL 5 MG TABLET (FOR DETOX USE ONLY) PO ONE (06:00)
[2020-04-20] MEDS: metFORMIN HCL 500 MG TABLET (FP) PO SCH (06:08)
[2020-04-20] MEDS: hydrOXYzine PAMOATE 25 MG CAPSULE (FP) PO SCH ×2 (06:09→10:24)
[2020-04-20 06:44] VITALS: TEMP 97.3
[2020-04-20] MEDS: CITALOPRAM HYDROBROMIDE 10 MG TABLET PO SCH (10:23)
[2020-04-20] MEDS: IBUPROFEN 400 MG TABLET (FP) PO PRN (10:23)
[2020-04-20] MEDS: METHOCARBAMOL 500 MG TABLET PO PRN (10:23)
[2020-04-20] MEDS: PRENATAL VITAMINS W/ FOLIC ACID TABLET (FP) PO SCH (10:24)
[2020-04-20] MEDS: NICOTINE 21 MG/24 HOURS TOPICAL PATCH TD SCH (10:25)
[2020-04-20 11:17] VITALS: BP 149/79; PULSE 87
== END 2020-04-20 12:35 | disposition other institution (70) | DRG 773 ==
LOC: YASAS 11:31 → Y6N 14:08
PROVIDERS: ADMIT Allergy & Immunology; ATTEND Allergy & Immunology
PROC: HZ2ZZZZ Detoxification Services for Substance Abuse Treatment (ICD-10-PCS; principal; 2020-04-15)
DX: F11.23 Opioid dependence with withdrawal (principal); F14.20 Cocaine dependence, uncomplicated; F10.10 Alcohol abuse, uncomplicated; F17.210 Nicotine dependence, cigarettes, uncomplicated; F31.81 Bipolar II disorder; F19.24 Other psychoactive substance dependence with psychoactive substance-induced mood disorder; F19.282 Other psychoactive substance dependence with psychoactive substance-induced sleep disorder; F41.9 Anxiety disorder, unspecified; F43.10 Post-traumatic stress disorder, unspecified; E78.5 Hyperlipidemia, unspecified; E11.9 Type 2 diabetes mellitus without complications; Z79.84 Long term (current) use of oral hypoglycemic drugs; G47.30 Sleep apnea, unspecified; J44.9 Chronic obstructive pulmonary disease, unspecified; H40.51X4 Glaucoma secondary to other eye disorders, right eye, indeterminate stage; E66.9 Obesity, unspecified; Z68.30 Body mass index [BMI] 30.0-30.9, adult; Z72.89 Other problems related to lifestyle; Z99.89 Dependence on other enabling machines and devices; Z59.0 Homelessness; Z56.0 Unemployment, unspecified
CPT/HCPCS: 36415; 80053; 82962; 85027; 86780; C9803; U0003

== ENCOUNTER 2021-08-18 10:55 | Inpatient (IN) | payer OTHER ==
[2021-08-18] MEDS ORDERED: BUPRENORPHINE HCL 150 MCG, BUPRENORPHINE HCL 75 MCG BC PRN (11:40)
[2021-08-18] MEDS ORDERED: ONDANSETRON *ODT* 4 MG TABLET SL PRN (11:40)
[2021-08-18] MEDS ORDERED: MAGNESIUM CITRATE 300 ML BOTTLE PO PRN (11:40)
[2021-08-18] MEDS ORDERED: IBUPROFEN 400 MG TABLET (FP) PO PRN (11:40)
[2021-08-18] MEDS ORDERED: MAGNESIUM HYDROX 2400MG/30ML ORAL SUSPENSION 30 ML CUP PO PRN (11:40)
[2021-08-18] MEDS ORDERED: NICOTINE 10 MG CARTRIDGE (INHALER) IH PRN (11:40)
[2021-08-18] MEDS ORDERED: diazePAM 5 MG TABLET PO PRN (11:40)
[2021-08-18] MEDS ORDERED: DICYCLOMINE HCL 10 MG CAPSULE PO PRN (11:40)
[2021-08-18] MEDS ORDERED: IBUPROFEN 600 MG TABLET (FP) PO PRN (11:40)
[2021-08-18] MEDS ORDERED: BISMUTH SUBSALICYLATE 524 MG/30 ML PO PRN (11:40)
[2021-08-18] MEDS ORDERED: METHOCARBAMOL 500 MG TABLET PO PRN (11:40)
[2021-08-18] MEDS ORDERED: MAG HYDROX/AL HYDROX/SIMETH 30 ML UNIT-DOSE CUP PO PRN (11:40)
[2021-08-18] MEDS ORDERED: chlordiazePOXIDE HCL 25 MG CAPSULE PO PRN (11:40)
[2021-08-18] MEDS ORDERED: LOPERAMIDE HCL 2 MG CAPSULE PO PRN (11:40)
[2021-08-18] MEDS ORDERED: BENZOCAINE/MENTHOL (CHLORASEPTIC ) LOZENGE MM PRN (11:40)
[2021-08-18] MEDS ORDERED: ACETAMINOPHEN 325 MG TABLET (FP) PO PRN ×2 (11:40)
[2021-08-18] MEDS ORDERED: ALBUTEROL SO4 HFA INHALER IH PRN (11:45)
[2021-08-18] MEDS ORDERED: cloNIDine HCL 0.1 MG TABLET PO ONE (13:00)
[2021-08-18] MEDS ORDERED: BUPRENORPHINE HCL 150 MCG, BUPRENORPHINE HCL 75 MCG BC ONE (13:00)
[2021-08-18 13:01] VITALS: BMI 31.9
[2021-08-18] MEDS ORDERED: BUPRENORPHINE HCL 75 MCG FILM BC ONE (13:47)
[2021-08-18] MEDS ORDERED: cloNIDine HCL 0.1 MG TABLET ONE (13:47)
[2021-08-18] MEDS ORDERED: BUPRENORPHINE HCL 150 MCG FILM BC ONE (13:47)
[2021-08-18] MEDS: hydrOXYzine PAMOATE 25 MG CAPSULE (FP) PO SCH ×3 (14:13→22:10)
[2021-08-18] MEDS: NICOTINE 21 MG/24 HOURS TOPICAL PATCH TD SCH (14:13)
[2021-08-18] MEDS: PRENATAL VITAMINS W/ FOLIC ACID TABLET (FP) PO SCH (14:19)
[2021-08-18] MEDS ORDERED: cloNIDine HCL 0.1 MG TABLET PO PRN (15:41)
[2021-08-18 16:00] LABS: CALCIUM 9.7 mg/dL (8.5-10.1)
[2021-08-18 16:01] LABS: ALBUMIN 3.4 g/dl (3.4-5.0); BLOOD UREA NITROGEN 16.2 mg/dL (7-18); HEMATOCRIT 40.2 % (35.4-49); HEMOGLOBIN 13.3 GM/dL (11.7-16.9); MCH 29.8 pg (25.7-33.7); MEAN CELL VOLUME 90.4 fl (80-96); MEAN PLT VOLUME 9.3 fl (7.5-11.1); PLATELET COUNT 297 10^3/uL (134-434); RBC 4.45 M/mm3 (4.00-5.60); RDW 14.8 % (11.9-15.9); WHITE BLOOD COUNT 7.6 K/mm3 (4.0-10.0)
[2021-08-18 16:05] LABS: BILIRUBIN,TOTAL 0.7 mg/dL (0.2-1); TOT PROT 7.2 g/dl (6.4-8.2)
[2021-08-18] MEDS: metFORMIN HCL 500 MG TABLET (FP) PO SCH (18:07)
[2021-08-18] MEDS: chlordiazePOXIDE HCL 25 MG CAPSULE PO SCH ×2 (18:07→22:11)
[2021-08-18] MEDS: THIAMINE HCL 100 MG TABLET (FP) PO SCH (22:10)
[2021-08-18] MEDS: MELATONIN 5 MG TABLETS PO SCH (22:10)
[2021-08-18] MEDS: CHLORHEXIDINE GLUCONATE 0.12% 15ML CUP MM SCH (23:38)
[2021-08-18] MEDS: LATANOPROST 0.005% OPHTH SOLN 2.5ML BOTTLE OD SCH (23:38)
[2021-08-19] MEDS ORDERED: BUPRENORPHINE HCL 150 MCG, BUPRENORPHINE HCL 75 MCG BC PRN
[2021-08-19] MEDS ORDERED: BUPRENORPHINE HCL 150 MCG FILM BC ONE ×2 (04:04→17:12)
[2021-08-19] MEDS ORDERED: BUPRENORPHINE HCL 75 MCG FILM BC ONE ×2 (04:04→17:12)
[2021-08-19] MEDS: chlordiazePOXIDE HCL 25 MG CAPSULE PO SCH ×4 (07:12→23:19)
[2021-08-19] MEDS: BUPRENORPHINE HCL 150 MCG, BUPRENORPHINE HCL 75 MCG BC SCH ×2 (07:13→18:26)
[2021-08-19] MEDS: metFORMIN HCL 500 MG TABLET (FP) PO SCH ×2 (07:14→18:26)
[2021-08-19] MEDS: hydrOXYzine PAMOATE 25 MG CAPSULE (FP) PO SCH ×4 (07:14→23:34)
[2021-08-19] MEDS: PRENATAL VITAMINS W/ FOLIC ACID TABLET (FP) PO SCH (11:08)
[2021-08-19] MEDS: NICOTINE 21 MG/24 HOURS TOPICAL PATCH TD SCH (11:09)
[2021-08-19] MEDS: CHLORHEXIDINE GLUCONATE 0.12% 15ML CUP MM SCH ×2 (11:09→23:34)
[2021-08-19] MEDS ORDERED: SODIUM POLYSTYRENE SULFONATE 15 GM/60 ML BOTTLE PO ONE (13:15)
[2021-08-19] MEDS ORDERED: metFORMIN HCL 500 MG TABLET (FP) PO SCH (16:30)
[2021-08-19] MEDS: INSULIN SLIDING SCALE (NOVOLOG) 1 VIAL SQ SCH (18:28)
[2021-08-19] MEDS: THIAMINE HCL 100 MG TABLET (FP) PO SCH (23:16)
[2021-08-19] MEDS: LATANOPROST 0.005% OPHTH SOLN 2.5ML BOTTLE OD SCH (23:18)
[2021-08-19] MEDS: MELATONIN 5 MG TABLETS PO SCH (23:33)
[2021-08-20] MEDS: chlordiazePOXIDE HCL 25 MG CAPSULE PO SCH ×4 (07:01→23:37)
[2021-08-20] MEDS: metFORMIN HCL 500 MG TABLET (FP) PO SCH ×2 (07:01→17:24)
[2021-08-20] MEDS: BUPRENORPHINE HCL 450 MCG FILM BC SCH ×2 (07:02→19:37)
[2021-08-20] MEDS: hydrOXYzine PAMOATE 25 MG CAPSULE (FP) PO SCH ×3 (07:05→13:19)
[2021-08-20] MEDS: INSULIN SLIDING SCALE (NOVOLOG) 1 VIAL SQ SCH ×2 (07:06→17:00)
[2021-08-20] MEDS: NICOTINE 21 MG/24 HOURS TOPICAL PATCH TD SCH (10:37)
[2021-08-20] MEDS: PRENATAL VITAMINS W/ FOLIC ACID TABLET (FP) PO SCH (10:37)
[2021-08-20] MEDS: CHLORHEXIDINE GLUCONATE 0.12% 15ML CUP MM SCH (10:37)
[2021-08-20] MEDS ORDERED: INSULIN (NOVOLOG) ASPART 100 UNITS/ML 10ML VIAL ONE (17:22)
[2021-08-20] MEDS ORDERED: methaDONE HCL 10 MG TABLET (FOR DETOX USE ONLY) PO ONE (19:07)
[2021-08-20] MEDS: hydrOXYzine PAMOATE 25 MG CAPSULE (FP) PO PRN ×2 (19:24→23:36)
[2021-08-20] MEDS: MELATONIN 5 MG TABLETS PO SCH (23:36)
[2021-08-20] MEDS: THIAMINE HCL 100 MG TABLET (FP) PO SCH (23:36)
[2021-08-21] MEDS ORDERED: chlordiazePOXIDE HCL 10 MG CAPSULE PO PRN
[2021-08-21] MEDS: CHLORHEXIDINE GLUCONATE 0.12% 15ML CUP MM SCH ×3 (00:52→22:49)
[2021-08-21] MEDS: hydrOXYzine PAMOATE 25 MG CAPSULE (FP) PO SCH (00:52)
[2021-08-21] MEDS: LATANOPROST 0.005% OPHTH SOLN 2.5ML BOTTLE OD SCH ×2 (00:52→22:49)
[2021-08-21] MEDS ORDERED: BUPRENORPHINE/NALOXONE 4 MG/1 MG FILM PACKET SL SCH (06:00)
[2021-08-21] MEDS: metFORMIN HCL 500 MG TABLET (FP) PO SCH ×2 (06:06→17:44)
[2021-08-21] MEDS: chlordiazePOXIDE HCL 10 MG CAPSULE PO SCH ×4 (06:06→22:47)
[2021-08-21] MEDS: INSULIN SLIDING SCALE (NOVOLOG) 1 VIAL SQ SCH ×2 (07:08→17:47)
[2021-08-21] MEDS ORDERED: methaDONE HCL 10 MG TABLET (FOR DETOX USE ONLY) ONE (08:50)
[2021-08-21] MEDS: PRENATAL VITAMINS W/ FOLIC ACID TABLET (FP) PO SCH (10:33)
[2021-08-21] MEDS: NICOTINE 21 MG/24 HOURS TOPICAL PATCH TD SCH (10:34)
[2021-08-21] MEDS: MELATONIN 5 MG TABLETS PO SCH (22:47)
[2021-08-21] MEDS: THIAMINE HCL 100 MG TABLET (FP) PO SCH (22:47)
[2021-08-22] MEDS ORDERED: chlordiazePOXIDE HCL 10 MG CAPSULE PO SCH (05:00)
[2021-08-22] MEDS ORDERED: INSULIN (NOVOLOG) ASPART 100 UNITS/ML 10ML VIAL ONE (05:56)
[2021-08-22] MEDS ORDERED: BUPRENORPHINE/NALOXONE 8 MG/2 MG FILM PACKET SL ONE (06:00)
[2021-08-22] MEDS: metFORMIN HCL 500 MG TABLET (FP) PO SCH (07:12)
[2021-08-22] MEDS: INSULIN SLIDING SCALE (NOVOLOG) 1 VIAL SQ SCH (07:13)
[2021-08-22 09:40] VITALS: BP 134/72; PULSE 77; TEMP 97.8
[2021-08-22] MEDS ORDERED: methaDONE HCL 10 MG TABLET (FOR DETOX USE ONLY) PO ONE (10:00)
[2021-08-23] MEDS ORDERED: chlordiazePOXIDE HCL 10 MG CAPSULE PO ONE (05:00)
[2021-08-24] MEDS ORDERED: methaDONE HCL 10 MG TABLET (FOR DETOX USE ONLY) PO ONE (10:00)
== END 2021-08-22 09:10 | disposition left against medical advice (07) | DRG 770 ==
LOC: YASAS 10:55 → Y6N 12:49
PROVIDERS: ADMIT Allergy & Immunology; ATTEND Surgery
PROC: 5A09557 Assistance with Respiratory Ventilation, Greater than 96 Consecutive Hours, Continuous Positive Airway Pressure (ICD-10-PCS; principal; 2021-08-18)
PROC: HZ2ZZZZ Detoxification Services for Substance Abuse Treatment (ICD-10-PCS; 2021-08-18)
DX: F11.23 Opioid dependence with withdrawal (principal); F10.230 Alcohol dependence with withdrawal, uncomplicated; F14.20 Cocaine dependence, uncomplicated; F12.20 Cannabis dependence, uncomplicated; F17.210 Nicotine dependence, cigarettes, uncomplicated; F19.282 Other psychoactive substance dependence with psychoactive substance-induced sleep disorder; F19.280 Other psychoactive substance dependence with psychoactive substance-induced anxiety disorder; F19.24 Other psychoactive substance dependence with psychoactive substance-induced mood disorder; F31.81 Bipolar II disorder; F41.9 Anxiety disorder, unspecified; E78.5 Hyperlipidemia, unspecified; E11.9 Type 2 diabetes mellitus without complications; Z79.84 Long term (current) use of oral hypoglycemic drugs; G47.33 Obstructive sleep apnea (adult) (pediatric); H40.51X4 Glaucoma secondary to other eye disorders, right eye, indeterminate stage; E66.9 Obesity, unspecified; Z68.33 Body mass index [BMI] 33.0-33.9, adult
CPT/HCPCS: 36415; 80053; 82962; 84132; 85027; 86780; C9803-CS; J0735; Q0162; U0003; U0005

== ENCOUNTER 2022-08-22 11:29 | Inpatient (IN) | payer OTHER ==
[2022-08-22 12:08] VITALS: BMI 29.0
[2022-08-22] MEDS ORDERED: IBUPROFEN 400 MG TABLET (FP) PO PRN (12:39)
[2022-08-22] MEDS ORDERED: NALOXONE HCL (KLOXXADO) 8 MG SPRAY NS PRN (12:39)
[2022-08-22] MEDS ORDERED: BISMUTH SUBSALICYLATE 524 MG/30 ML PO PRN (12:39)
[2022-08-22] MEDS ORDERED: ONDANSETRON *ODT* 4 MG TABLET SL PRN (12:39)
[2022-08-22] MEDS ORDERED: hydrOXYzine PAMOATE 25 MG CAPSULE (FP) PO PRN (12:39)
[2022-08-22] MEDS ORDERED: MAGNESIUM HYDROX 2400MG/30ML ORAL SUSPENSION 30 ML CUP PO PRN (12:39)
[2022-08-22] MEDS ORDERED: IBUPROFEN 600 MG TABLET (FP) PO PRN (12:39)
[2022-08-22] MEDS ORDERED: DICYCLOMINE HCL 10 MG CAPSULE PO PRN (12:39)
[2022-08-22] MEDS ORDERED: NALOXONE HCL 0.4 MG/ML VIAL IM PRN (12:39)
[2022-08-22] MEDS ORDERED: guaiFENesin 600 MG TABLET.ER (FP) PO PRN (12:39)
[2022-08-22] MEDS ORDERED: BENZONATATE 200 MG CAPSULE PO PRN (12:39)
[2022-08-22] MEDS ORDERED: cloNIDine HCL 0.1 MG TABLET PO PRN (12:39)
[2022-08-22] MEDS ORDERED: POLYETHYLENE GLYCOL (HEALTHYLAX) 3350 17 GM PACKET PO PRN (12:39)
[2022-08-22] MEDS ORDERED: ACETAMINOPHEN 325 MG TABLET (FP) PO PRN (12:39)
[2022-08-22] MEDS ORDERED: MAG HYDROX/AL HYDROX/SIMETH 30 ML UNIT-DOSE CUP PO PRN (12:39)
[2022-08-22] MEDS ORDERED: NICOTINE 10 MG CARTRIDGE (INHALER) IH PRN (12:39)
[2022-08-22] MEDS ORDERED: BENZOCAINE/MENTHOL (CHLORASEPTIC ) LOZENGE MM PRN (12:39)
[2022-08-22] MEDS ORDERED: LOPERAMIDE HCL 2 MG CAPSULE PO PRN (12:39)
[2022-08-22] MEDS ORDERED: ALBUTEROL SO4 HFA INHALER IH PRN (12:44)
[2022-08-22] MEDS ORDERED: methaDONE HCL 10 MG TABLET (FOR DETOX USE ONLY) ONE (13:15)
[2022-08-22] MEDS ORDERED: NICOTINE 21 MG/24 HOURS TOPICAL PATCH ONE (13:15)
[2022-08-22] MEDS ORDERED: PRENATAL VITAMINS W/ FOLIC ACID TABLET (FP) PO ONE (13:15)
[2022-08-22] MEDS ORDERED: methaDONE HCL 10 MG TABLET (FOR DETOX USE ONLY) PO ONE (13:15)
[2022-08-22] MEDS: PRENATAL VITAMINS W/ FOLIC ACID TABLET (FP) PO SCH (13:17)
[2022-08-22] MEDS: NICOTINE 21 MG/24 HOURS TOPICAL PATCH TD SCH (13:17)
[2022-08-22] MEDS: metFORMIN HCL 500 MG TABLET (FP) PO SCH (17:35)
[2022-08-22] MEDS: INSULIN SLIDING SCALE (NOVOLOG) 1 VIAL SQ SCH (17:39)
[2022-08-22] MEDS: THIAMINE HCL 100 MG TABLET (FP) PO SCH (22:11)
[2022-08-22] MEDS: METHOCARBAMOL 500 MG TABLET PO PRN (22:11)
[2022-08-22] MEDS: MELATONIN 5 MG TABLETS PO SCH (22:11)
[2022-08-23] MEDS: INSULIN SLIDING SCALE (NOVOLOG) 1 VIAL SQ SCH ×4 (07:19→17:03)
[2022-08-23] MEDS ORDERED: INSULIN SLIDING SCALE (NOVOLOG) 1 VIAL SQ ONE ×2 (07:20→16:47)
[2022-08-23] MEDS: metFORMIN HCL 500 MG TABLET (FP) PO SCH ×2 (07:21→17:03)
[2022-08-23] MEDS: PRENATAL VITAMINS W/ FOLIC ACID TABLET (FP) PO SCH (10:18)
[2022-08-23] MEDS: NICOTINE 21 MG/24 HOURS TOPICAL PATCH TD SCH (10:21)
[2022-08-23 12:00] LABS: HEMATOCRIT 36.2 % (35.4-49); HEMOGLOBIN 12.1 GM/dL (11.7-16.9); MCH 30.1 pg (25.7-33.7); MCHC 33.6 g/dl (32.0-35.9); MEAN CELL VOLUME 89.7 fl (80-96); MEAN PLT VOLUME 9.4 fl (7.5-11.1); PLATELET COUNT 324 10^3/uL (134-434); RBC 4.03 M/mm3 (4.00-5.60); RDW 14.6 % (11.9-15.9); WHITE BLOOD COUNT 6.3 K/mm3 (4.0-10.0)
[2022-08-23 12:06] LABS: POTASSIUM 4.5 mmol/L (3.5-5.1)
[2022-08-23 12:12] LABS: CALCIUM 9.2 mg/dL (8.5-10.1)
[2022-08-23 12:13] LABS: ALBUMIN 3.2 g/dl (3.4-5.0); BLOOD UREA NITROGEN 18.4 mg/dL (7-18)
[2022-08-23 12:15] LABS: CREATININE 0.7 mg/dL (0.55-1.3)
[2022-08-23 12:17] LABS: BILIRUBIN,TOTAL 0.2 mg/dL (0.2-1); TOT PROT 6.7 g/dl (6.4-8.2)
[2022-08-23] MEDS: THIAMINE HCL 100 MG TABLET (FP) PO SCH (22:52)
[2022-08-23] MEDS: MELATONIN 5 MG TABLETS PO SCH (22:52)
[2022-08-23] MEDS: METHOCARBAMOL 500 MG TABLET PO PRN (22:54)
[2022-08-24] MEDS: metFORMIN HCL 500 MG TABLET (FP) PO SCH ×2 (06:54→17:26)
[2022-08-24] MEDS: INSULIN SLIDING SCALE (NOVOLOG) 1 VIAL SQ SCH ×3 (06:54→16:31)
[2022-08-24] MEDS ORDERED: methaDONE HCL 10 MG TABLET (FOR DETOX USE ONLY) PO ONE (10:00)
[2022-08-24] MEDS: NICOTINE 21 MG/24 HOURS TOPICAL PATCH TD SCH (10:06)
[2022-08-24] MEDS: PRENATAL VITAMINS W/ FOLIC ACID TABLET (FP) PO SCH (10:06)
[2022-08-24] MEDS: THIAMINE HCL 100 MG TABLET (FP) PO SCH (22:37)
[2022-08-24] MEDS: MELATONIN 5 MG TABLETS PO SCH (22:37)
[2022-08-25] MEDS: metFORMIN HCL 500 MG TABLET (FP) PO SCH ×2 (06:17→17:30)
[2022-08-25] MEDS: INSULIN SLIDING SCALE (NOVOLOG) 1 VIAL SQ SCH ×3 (06:17→16:59)
[2022-08-25] MEDS: PRENATAL VITAMINS W/ FOLIC ACID TABLET (FP) PO SCH (09:53)
[2022-08-25] MEDS: NICOTINE 21 MG/24 HOURS TOPICAL PATCH TD SCH (09:57)
[2022-08-25 17:09] VITALS: BP 137/84; PULSE 62; RESP 18; TEMP 97.5
[2022-08-26] MEDS ORDERED: methaDONE HCL 10 MG TABLET (FOR DETOX USE ONLY) PO ONE (10:00)
== END 2022-08-25 20:32 | disposition left against medical advice (07) | DRG 770 ==
LOC: YASAS 11:29 → Y3N 15:30
PROVIDERS: ADMIT Allergy & Immunology; ATTEND Surgery
PROC: HZ2ZZZZ Detoxification Services for Substance Abuse Treatment (ICD-10-PCS; principal; 2022-08-22)
DX: F11.23 Opioid dependence with withdrawal (principal); F10.230 Alcohol dependence with withdrawal, uncomplicated; F14.20 Cocaine dependence, uncomplicated; F12.20 Cannabis dependence, uncomplicated; F17.210 Nicotine dependence, cigarettes, uncomplicated; F31.9 Bipolar disorder, unspecified; F43.10 Post-traumatic stress disorder, unspecified; G47.30 Sleep apnea, unspecified; E11.9 Type 2 diabetes mellitus without complications; Z79.84 Long term (current) use of oral hypoglycemic drugs; Z62.810 Personal history of physical and sexual abuse in childhood; Z99.89 Dependence on other enabling machines and devices; Z91.410 Personal history of adult physical and sexual abuse
CPT/HCPCS: 36415; 80053; 82962; 85027; 86780; 87635; 87811